=== PATIENT | female | born 1950 | race African-American/Black ===

== ENCOUNTER 2021-01-20 14:21 | Inpatient (IN) | payer OTHER ==
[~2021-01-20] VITALS: Ht 165.1 cm; Wt 87.9 kg
[2021-01-20] MEDS ORDERED: ALBU2.5V8 IH (14:55)
[2021-01-20] MEDS ORDERED: AMLO10TA4 PO (14:56)
[2021-01-20] MEDS ORDERED: ATOR40TA59 PO (14:57)
[2021-01-20] MEDS ORDERED: CLOP75TA PO (14:58)
[2021-01-20] MEDS ORDERED: CYCL-331 PO (15:00)
[2021-01-20] MEDS ORDERED: DICL20GE TP (15:01)
[2021-01-20] MEDS ORDERED: FLUT9.9S NS (15:04)
[2021-01-20] MEDS ORDERED: FERR325T14 PO (15:04)
[2021-01-20] MEDS ORDERED: APIX5TAB3 PO (15:04)
[2021-01-20] MEDS ORDERED: FLUT1DIS3 IH (15:06)
[2021-01-20] MEDS ORDERED: MELA5TAB20 PO (15:15)
[2021-01-20] MEDS ORDERED: LISI10TA16 PO (15:15)
[2021-01-20] MEDS ORDERED: MONT10TA80 PO (15:15)
[2021-01-20] MEDS ORDERED: [UNRECOGNIZED DRUG - CODE] PO (15:15)
[2021-01-20] MEDS ORDERED: HYDR30CR61 TP (15:15)
[2021-01-20] MEDS ORDERED: METO100T7 PO (15:15)
[2021-01-20] MEDS ORDERED: LORA10TA68 PO (15:15)
[2021-01-20] MEDS ORDERED: FURO40TA4 PO (15:15)
[2021-01-20] MEDS ORDERED: PANT40TA3 PO (15:17)
[2021-01-20] MEDS ORDERED: TIOT18CA IH (15:17)
[2021-01-20 15:26] VITALS: BP 119/79
[2021-01-20] MEDS ORDERED: MAGNESIUM HYDROXIDE 2,400 MG/30 ML ORAL.SUSP. PO PRN (15:45)
[2021-01-20] MEDS ORDERED: MAG HYDROX/AL HYDROX/SIMETH 30 ML ORAL.SUSP PO PRN (15:45)
[2021-01-20] MEDS ORDERED: METHYL SALICYLATE/MENTHOL TOPICAL OINTMENT 57GM TUBE. TP PRN (15:45)
[2021-01-20] MEDS ORDERED: ACETAMINOPHEN 325 MG TABLET PO PRN (15:45)
[2021-01-20] MEDS: NICOTINE 14MG PATCH. TD SCH (16:00)
[2021-01-20] MEDS ORDERED: ALBUTEROL SULFATE 2.5 MG/3 ML NEBU. IH PRN (16:30)
[2021-01-20] MEDS ORDERED: ACETAMINOPHEN PO PRN (16:30)
[2021-01-20] MEDS ORDERED: DIPHENHYDRAMINE PO PRN (16:30)
[2021-01-20] MEDS ORDERED: CILO100T PO (16:41)
[2021-01-20 16:54] LABS: BILIRUBIN,URINE NEG (NEG); CLARITY,URINE CLEAR; COLOR,URINE YELLOW; GLUCOSE,URINE NEG (NEG); NITRITE,URINE NEG (NEG); UROBILINOGEN,URINE 0.2 mg/dL (0.2 mg/dL)
[2021-01-20 16:56] LABS: BACTERIA,URINE 0 /HPF (0-FEW); RBC,URINE 0 /HPF (0-2); WBC,URINE 0 /HPF (0-4)
[2021-01-20 16:57] LABS: SQUAMOUS EPITHELIAL CELL,UR OCC /LPF
[2021-01-20] MEDS: DICLOFENAC SODIUM 1% TOPICAL GEL 100GM TUBE. TP SCH ×2 (17:00→21:09)
[2021-01-20] MEDS ORDERED: MELATONIN 3 MG TABLET PO PRN (17:00)
[2021-01-20] MEDS ORDERED: CILOSTAZOL 100 MG PO SCH (18:00)
[2021-01-20] MEDS ORDERED: IPRATRPIUM/ALBUTEROL 0.5/2.5MG 3 ML NEBU. NEB SCH (20:00)
[2021-01-20] MEDS ORDERED: BUDESONIDE 0.5 MG/2 ML NEBU NEB SCH (20:00)
[2021-01-20 20:44] LABS: BASO # 0.2 x10^3/uL (0.0-0.2); BASO % 3 % (0-3); EOS # 0.1 x10^3/uL (0.0-0.7); EOS % 2 % (0-3); HEMATOCRIT 28.6 % (36.0-47.0); HEMOGLOBIN 8.6 g/dL (12.0-15.5); LYMPH % 14 % (24-48); MEAN CORPUSCULAR HEMOGLOBIN 24 pg (25-35); MEAN CORPUSCULAR HGB CONC 30 g/dL (31-37); MEAN CORPUSCULAR VOLUME 79 fL (79-100); MONO # 0.9 x10^3/uL (0.0-1.1); MONO % 12 % (0-9); NEUT # 4.7 x10^3uL (1.8-7.7); NEUT % 69 % (31-73); PLATELET COUNT 109 x10^3/uL (140-400); RED BLOOD COUNT 3.64 x10^6/uL (3.50-5.40); RED CELL DISTRIBUTION WIDTH 26.7 % (11.5-14.5); WHITE BLOOD COUNT 6.9 x10^3/uL (4.0-11.0)
[2021-01-20] MEDS: HYDROCORTISONE 2.5% RECTAL CREAM 30GM TUBE. RC SCH (21:00)
[2021-01-20] MEDS ORDERED: NON FORMULARY ITEM (Fluticasone/Salmeterol (Advair 250-50 Diskus) 1 PUFF) IH SCH (21:00)
[2021-01-20 21:04] LABS: ALBUMIN 3.7 g/dL (3.4-5.0); CALCIUM 10.3 mg/dL (8.5-10.1); CREATININE 1.3 mg/dL (0.6-1.0); GFR 40.7; MAGNESIUM 2.2 mg/dL (1.8-2.4); POTASSIUM 3.7 mmol/L (3.5-5.1); TOTAL BILIRUBIN 0.4 mg/dL (0.2-1.0); TOTAL PROTEIN 7.5 g/dL (6.4-8.2)
[2021-01-20] MEDS: CYCLOBENZAPRINE 10 MG TABLET. PO SCH (21:06)
[2021-01-20] MEDS: MONTELUKAST 10 MG TABLET. PO SCH (21:06)
[2021-01-20] MEDS: METOPROLOL TART IMMED RELEASE 50 MG TABLET PO SCH (21:07)
[2021-01-20] MEDS: ATORVASTATIN CALCIUM 20 MG TABLET PO SCH (21:07)
[2021-01-20] MEDS: APIXABAN 5 MG TABLET. PO SCH (21:07)
[2021-01-20] MEDS ORDERED: DEXT30SU19 PO (21:13)
[2021-01-20] MEDS ORDERED: DEXTROMETHORPHAN POLISTIREX PO PRN (21:15)
--- NOTE | 2021-01-20 22:15 | PDOC ---
Exam Note: Blaise Note: Please also refer to the separate dictated note~for this date of service dictated separately.~Patient seen individually. Discussed the patient with Nursing staff reviewed the chart.~Reviewed interim history and current functioning. Reviewed vital signs,~Labs/ Radiology~and current medications noted below. Continue current treatment with the changes noted in the dictated addendum note Assessment: Vital Signs/I&O: Vital Signs Date Time Temp Pulse Resp B/P (MAP) Pulse Ox O2 Delivery O2 Flow Rate FiO2 01/20/21 21:07 60 119/79 01/20/21 15:26 97.4 18 97 Room Air Labs: Laboratory Tests Test 01/20/21 16:00 01/20/21 20:25 Urine Collection Type Clean catch Urine Color Yellow Urine Clarity Clear Urine pH 5.5 Urine Specific [place] 1.015 Urine Protein Neg (NEG-TRACE) Urine Glucose (UA) Neg mg/dL (NEG) Urine Ketones (Stick) Neg mg/dL (NEG) Urine Blood Neg (NEG) Urine Nitrite Neg (NEG) Urine Bilirubin Neg (NEG) Urine Urobilinogen Dipstick 0.2 mg/dL (0.2 mg/dL) Urine Leukocyte Esterase Neg (NEG) Urine RBC 0 /HPF (0-2) Urine WBC 0 /HPF (0-4) Urine Squamous Epithelial Cells Occ /LPF Urine Bacteria 0 /HPF (0-FEW) White Blood Count 6.9 x10^3/uL (4.0-11.0) Red Blood Count 3.64 x10^6/uL (3.50-5.40) Hemoglobin 8.6 g/dL (12.0-15.5) L Hematocrit 28.6 % (36.0-47.0) L Mean Corpuscular Volume 79 fL (79-100) Mean Corpuscular Hemoglobin 24 pg (25-35) L Mean Corpuscular Hemoglobin Concent 30 g/dL (31-37) L Red Cell Distribution Width 26.7 % (11.5-14.5) H Platelet Count 109 x10^3/uL (140-400) L Neutrophils (%) (Auto) 69 % (31-73) Lymphocytes (%) (Auto) 14 % (24-48) L Monocytes (%) (Auto) 12 % (0-9) H Eosinophils (%) (Auto) 2 % (0-3) Basophils (%) (Auto) 3 % (0-3) Neutrophils # (Auto) 4.7 x10^3uL (1.8-7.7) Lymphocytes # (Auto) 1.0 x10^3/uL (1.0-4.8) Monocytes # (Auto) 0.9 x10^3/uL (0.0-1.1) Eosinophils # (Auto) 0.1 x10^3/uL (0.0-0.7) Basophils # (Auto) 0.2 x10^3/uL (0.0-0.2) D-Dimer (Ingrid) 0.81 mg/L (0.00-0.50) H Sodium Level 144 mmol/L (136-145) Potassium Level 3.7 mmol/L (3.5-5.1) Chloride Level 104 mmol/L (98-107) Carbon Dioxide Level 29 mmol/L (21-32) Anion Gap 11 (6-14) Blood Urea Nitrogen 27 mg/dL (7-20) H Creatinine 1.3 mg/dL (0.6-1.0) H Estimated GFR (Cockcroft-Gault) 40.7 BUN/Creatinine Ratio 21 (6-20) H Glucose Level 107 mg/dL (70-99) H Calcium Level 10.3 mg/dL (8.5-10.1) H Magnesium Level 2.2 mg/dL (1.8-2.4) Total Bilirubin 0.4 mg/dL (0.2-1.0) Aspartate Amino Transferase (AST) 64 U/L (15-37) H Alanine Aminotransferase (ALT) 56 U/L (14-59) Alkaline Phosphatase 229 U/L (46-116) H Total Protein 7.5 g/dL (6.4-8.2) Albumin 3.7 g/dL (3.4-5.0) Albumin/Globulin Ratio 1.0 (1.0-1.7) Current Medications: Meds: Laboratory Tests Test 01/20/21 16:00 01/20/21 20:25 Urine Collection Type Clean catch Urine Color Yellow Urine Clarity Clear Urine pH 5.5 Urine Specific [place] 1.015 Urine Protein Neg Urine Glucose (UA) Neg mg/dL Urine Ketones (Stick) Neg mg/dL Urine Blood Neg Urine Nitrite Neg Urine Bilirubin Neg Urine Urobilinogen Dipstick 0.2 mg/dL Urine Leukocyte Esterase Neg Urine RBC 0 /HPF Urine WBC 0 /HPF Urine Squamous Epithelial Cells Occ /LPF Urine Bacteria 0 /HPF White Blood Count 6.9 x10^3/uL Red Blood Count 3.64 x10^6/uL Hemoglobin 8.6 g/dL Hematocrit 28.6 % Mean Corpuscular Volume 79 fL Mean Corpuscular Hemoglobin 24 pg Mean Corpuscular Hemoglobin Concent 30 g/dL Red Cell Distribution Width 26.7 % Platelet Count 109 x10^3/uL Neutrophils (%) (Auto) 69 % Lymphocytes (%) (Auto) 14 % Monocytes (%) (Auto) 12 % Eosinophils (%) (Auto) 2 % Basophils (%) (Auto) 3 % Neutrophils # (Auto) 4.7 x10^3uL Lymphocytes # (Auto) 1.0 x10^3/uL Monocytes # (Auto) 0.9 x10^3/uL Eosinophils # (Auto) 0.1 x10^3/uL Basophils # (Auto) 0.2 x10^3/uL D-Dimer (Ingrid) 0.81 mg/L Sodium Level 144 mmol/L Potassium Level 3.7 mmol/L Chloride Level 104 mmol/L Carbon Dioxide Level 29 mmol/L Anion Gap 11 Blood Urea Nitrogen 27 mg/dL Creatinine 1.3 mg/dL Estimated GFR (Cockcroft-Gault) 40.7 BUN/Creatinine Ratio 21 Glucose Level 107 mg/dL Calcium Level 10.3 mg/dL Magnesium Level 2.2 mg/dL Total Bilirubin 0.4 mg/dL Aspartate Amino Transf (AST/SGOT) 64 U/L Alanine Aminotransferase (ALT/SGPT) 56 U/L Alkaline Phosphatase 229 U/L Total Protein 7.5 g/dL Albumin 3.7 g/dL Albumin/Globulin Ratio 1.0 Current Medications Medications (Trade) Dose Ordered Sig/Nadeen Route PRN Reason Start Time Stop Time Status Last Admin Dose Admin Acetaminophen (Tylenol) 650 mg PRN Q6HRS PRN PO MILD PAIN / TEMP > 100.3'F 01/20/21 15:45 Multi-Ingredient Ointment (Analgesic [place]) 1 ortega PRN QID PRN TP MUSCLE PAIN 01/20/21 15:45 Al Hydroxide/Mg Hydroxide (Mylanta Plus Xs) 15 ml PRN AFTMEALHC PRN PO DYSPEPSIA 01/20/21 15:45 Magnesium Hydroxide (Milk Of Magnesia) 2,400 mg PRN QHS PRN PO CONSTIPATION 01/20/21 15:45 Nicotine (Nicoderm Cq 14mg Patch) 1 patch DAILY TD 01/20/21 16:00 Albuterol Sulfate (Ventolin) 0.108 mg PRN Q6HRS PRN IH wheezing 01/20/21 16:30 01/20/21 17:05 DC Amlodipine Besylate (Norvasc) 10 mg DAILY PO 01/21/21 09:00 Apixaban (Eliquis) 5 mg BID PO 01/20/21 21:00 01/20/21 21:07 Clopidogrel Bisulfate (Plavix) 75 mg DAILY PO 01/21/21 09:00 Cyclobenzaprine HCl (Flexeril) 10 mg BID PO 01/20/21 21:00 01/20/21 21:06 Diclofenac Sodium (Voltaren) 4 ortega QID TP 01/20/21 17:00 01/20/21 21:09 Ferrous Sulfate (Feosol) 325 mg DAILY PO 01/21/21 09:00 Furosemide (Lasix) 40 mg DAILY PO 01/21/21 09:00 Hydrocortisone (Proctosol-Hc) 1 ortega BID RC 01/20/21 21:00 01/20/21 21:00 Lisinopril (Prinivil) 10 mg DAILY PO 01/21/21 09:00 Montelukast Sodium (Singulair) 10 mg HS PO 01/20/21 21:00 01/20/21 21:06 Pantoprazole Sodium (Protonix) 40 mg DAILYAC PO 01/21/21 07:30 Non-Formulary Medication (Acetaminophen/ Diphenhydramine (Hm Pain Reliever Pm Caplet)) 650 mg PRN Q4HRS PRN PO PAIN 01/20/21 16:30 01/20/21 17:01 DC Atorvastatin Calcium (Lipitor) 40 mg QHS PO 01/20/21 21:00 01/20/21 21:07 Non-Formulary Medication (Cilostazol ) 100 mg BIDAFTMEAL PO 01/20/21 18:00 01/20/21 17:27 DC Fluticasone Propionate (Flonase) 1 spray DAILY NS 01/21/21 09:00 Non-Formulary Medication (Fluticasone/ Salmeterol (Advair 250-50 Diskus)) 1 puff Q12HR IH 01/20/21 21:00 01/20/21 17:16 DC Cetirizine HCl (ZyrTEC) 10 mg DAILY PO 01/21/21 09:00 Melatonin (Melatonin) 3 mg PRN QHS PRN PO INSOMNIA 01/20/21 17:00 Metoprolol Tartrate (Lopressor) 100 mg BID PO 01/20/21 21:00 01/20/21 21:07 Non-Formulary Medication (Tiotropium [place] (Spiriva)) 1 cap DAILY IH 01/21/21 09:00 01/20/21 17:17 DC Budesonide (Pulmicort) 0.5 mg RTBID NEB 01/20/21 20:00 01/20/21 19:43 DC Albuterol/ Ipratropium (Duoneb) 3 ml RTQID NEB 01/20/21 20:00 01/20/21 19:42 DC Albuterol/ Ipratropium (Combivent Respimat 20-100 Mcg) 1 puff RTQID INH 01/20/21 20:00 Fluticasone Furoate (ARNUITY 100mcg ELLIPTA) 1 puff BID INH 01/20/21 21:00 Non-Formulary Medication (Dextromethorphan Polistirex (Delsym)) 5 ml PRN BID PRN PO COUGH 01/20/21 21:15 UNV Current Medications Medications (Trade) Dose Ordered Sig/Nadeen Route PRN Reason Start Time Stop Time Status Last Admin Dose Admin Apixaban (Eliquis) 5 mg BID PO 01/20/21 21:00 01/20/21 21:07 Cyclobenzaprine HCl (Flexeril) 10 mg BID PO 01/20/21 21:00 01/20/21 21:06 Diclofenac Sodium (Voltaren) 4 ortega QID TP 01/20/21 17:00 01/20/21 21:09 Hydrocortisone (Proctosol-Hc) 1 ortega BID RC 01/20/21 21:00 01/20/21 21:00 Montelukast Sodium (Singulair) 10 mg HS PO 01/20/21 21:00 01/20/21 21:06 Atorvastatin Calcium (Lipitor) 40 mg QHS PO 01/20/21 21:00 01/20/21 21:07 Metoprolol Tartrate (Lopressor) 100 mg BID PO 01/20/21 21:00 01/20/21 21:07 I have reviewed the current psychotropics carefully including drug interactions. Risk benefit ratio favors no change other than as noted in my dictated progress note. JULIANN DORSEY MD Jan 20, 2021 22:15
[2021-01-20] MEDS: FLUTICASONE FUROATE 100mcg/INH ELLIPTA INHALER. INH SCH (22:16)
[2021-01-20] MEDS: IPRATROPIUM/ALBUTEROL 20/100mcg/INH INHALER. INH SCH (22:16)
--- NOTE | 2021-01-20 23:35 | HP ---
ADMIT DATE: 01/20/2021 PSYCHIATRIC ADMISSION HISTORY AND EVALUATION This note covers elements not covered in my initial note, 01/20. IDENTIFYING DATA: The patient is a 70-year-old Afro-Swedish female referred to us from [facility] where she was admitted from her home where she lives in an apartment. She has been increasingly delusional, psychotic, paranoid. She has been urinating in the cups, believed that someone was stalking her, perhaps her prior boyfriend. She had called the police about this and believed "Merrill was climbing up to the 9th or 10th floor and then coming in through her window". She stopped her medications and had been reportedly missing her outpatient doctor's appointments. She was not keeping any food in the apartment, appeared psychotic. She was sent to the ER, admitted for medical stabilization, remained paranoid. Behavior is deemed dangerous to return home by herself. Referred to us for inpatient psychiatric stabilization. She has been in outpatient treatment at [facility] in [place] and a prior inpatient hospitalization, psychiatric at [facility]. The patient seen individually, discussed with nursing staff, reviewed the chart. Previously, discussed with Sherlyn Urrutia, administrative assistant coordinator to review detailed background information. The patient is being admitted by her sister, who is her power of emergency dispatch operator in this document has been activated. CHIEF COMPLAINT:. "She does plunge through the window." HISTORY OF PRESENT ILLNESS: The patient has a history of delusional disorder and had been stable for some time, remains in outpatient psychiatric treatment. Recently, she has had an exacerbation of her psychosis, marked paranoia significantly interfering with her functioning. She normally takes a bus to go grocery shopping, does her own cooking and some of this has been impaired due to her psychosis as well. No active suicidal or homicidal ideation. No clear history of bipolar disorder. PAST PSYCHIATRIC HISTORY: As above and a past history of marijuana abuse and alcohol abuse, but no DUIs, DTs, shakes or blackouts. PAST MEDICAL HISTORY: Positive for COPD, pacemaker in place, asthma, hyperlipidemia, hypertension, cardiomyopathy, which is ischemic, peripheral arterial disease, hyperlipidemia, arthritis. ALLERGIES: ASPIRIN, SULFA. FAMILY HISTORY: Noncontributory. SOCIAL HISTORY: The patient lives in her apartment and takes a bus to go grocery shopping and to her outpatient appointments. No physical, sexual or elder abuse history is noted. She is not known to be a perpetrator. Reaction to hospitalization, the patient accepting of it. ASSETS: Supportive, living at the facility. REVIEW OF SYSTEMS: No CV, , pulmonary, eye system symptoms on review. MENTAL STATUS EXAMINATION: The patient is reasonably oriented to herself, situation. Speech is coherent, has some latency. Abstraction fair, computation impaired, language function intact. Attention span short. She remains quite paranoid, suspicious. No active suicidal or homicidal ideation. She is somewhat distractable. LABORATORY DATA: Reviewed. IMPRESSION: Delusional disorder versus psychotic disorder, unspecified versus schizoaffective disorder, bipolar, mixed with psychotic features; anxiety disorder, unspecified; impulse control disorder, unspecified. Rest as above. PLAN: Admit to Geropsychiatry Unit at [facility]. I will see the patient daily individually from a psychiatric standpoint. Medical followup with Dr. Reyes/Dr. Gamez. Continue the patient on her current psychotropics. Observe baseline. Get past psychiatric records from [facility] and psychiatrist at [facility]. Make further adjustments in psychotropics as clinically indicated. ESTIMATED LENGTH OF STAY: Ten-twelve days. DISPOSITION PLANS: Back to apartment when stable with outpatient treatment. ANGELY IZQUIERDO: Song TID: [id number]
--- NOTE | 2021-01-21 05:59 | CONS ---
DATE OF CONSULTATION: 01/20/2021 HISTORY OF PRESENT ILLNESS: The patient is a 70-year-old -[place] female patient who was admitted to [facility] as a transfer from [facility]. She apparently has been urinating in cups in her apartment, delusional, thinks Merrill is stalking her and entering her apartment, spitting in her food, stopped medicine, missing doctor's appointment, not keeping food in the apartment. She thinks Merrill is coming in her eighth floor window, thinks she has been rapped by Merrill, has called the police before who was admitted to [facility] for inpatient psychiatric stabilization. PAST MEDICAL HISTORY: Significant for chronic obstructive pulmonary disease, hypertension, hyperlipidemia, gastroesophageal reflux disease, anemia due to angiodysplasia of her duodenum, paroxysmal atrial fibrillation. She is also known to have bronchial asthma and ischemic cardiomyopathy, peripheral arterial disease. PAST SURGICAL HISTORY: Significant for permanent pacemaker placement and upper GI endoscopy. ALLERGIES: SHE IS ALLERGIC TO SULFA DRUGS AND ASPIRIN. MEDICATIONS: She is currently on the following medication: She is on loratadine 10 mg once a day, tiotropium bromide for Spiriva HandiHaler one inhalation once a day, albuterol sulfate for ProAir 2 puffs every 6 hours as needed, cyclobenzaprine 10 mg twice a day, ferrous sulfate 325 mg once a day, apixaban 5 mg twice a day, cilostazol 100 mg twice a day, clopidogrel for Plavix 75 mg once a day, atorvastatin calcium 40 mg at bedtime, metoprolol tartrate 100 mg twice a day, amlodipine besylate for Norvasc 10 mg daily, lisinopril 10 mg once a day and diclofenac sodium 4 grams 4 times a day, acetaminophen/diphenhydramine for pain relief every 4 hours as needed, furosemide 40 mg daily, Advair Diskus 250/50 1 puff twice a day, Singulair 10 mg at bedtime, Flonase 2 sprays to each nostril once a day, Protonix 40 mg once a day, hydrocortisone cream apply topically twice a day, melatonin 5 mg 1 tablet at bedtime as needed for insomnia. FAMILY HISTORY: Noncontributory. SOCIAL HISTORY: She lives alone. She has a daughter that lives in [place]. She continued to smoke. Drinks alcohol occasionally. Does not use any drugs. She is currently unemployed. REVIEW OF SYSTEMS: As per history of present illness. PHYSICAL EXAMINATION: GENERAL: When I examined her, she looked well and was clearly in no apparent respiratory distress. No pallor, jaundice, cyanosis, or thyromegaly. No jugular venous distention, no lower limb edema. VITAL SIGNS: Heart rate was 60, blood pressure is 119/79, temperature 97.4, respiratory rate was 18 and oxygen saturation was 97% on room air. HEAD, EYES, EARS, NOSE, AND THROAT: Normocephalic, atraumatic. NECK: Supple. HEART: Showed normal first and second heart sounds, no gallop, murmur. CHEST: Clear to auscultation. No crepitation or rhonchi. ABDOMEN: Distended, soft, nontender. NEUROLOGIC: She was grossly intact. LABORATORY DATA: Her labs works are still pending at the time of this dictation. Lab work done at [facility] showed her serum sodium 140, potassium 3.7, chloride 109, bicarbonate 26, anion gap of 5, her glucose was 65. Total protein 6.4, albumin 4.4, calcium was 9.2, BUN 21, creatinine 1.09. Estimated GFR was 59 mL per minute. AST, ALT normal. Alkaline phosphatase is elevated. Her APTT 42.4. Prothrombin time and INR normal. D-dimer was slightly elevated at 0.51. Her white cell count was 5000, hemoglobin was 5.5, hematocrit was 19.4, MCV 72 and a platelet count of 236,000. She did have a chest x-ray which showed cardiomegaly and pulmonary vascular congestion without overt pulmonary edema. CT scan of the head showed normal CT scan of the head without contrast. ASSESSMENT: In summary, this is a 70-year-old -[place] female patient who was admitted on account of being extremely paranoid, delusional, thinks Merrill is stalking her, entering her apartment, spitting in her food, stopped the medication, missing doctor's appointments, not keeping food in the apartment. Medically, she has severe microcytic hypochromic anemia. She has angiodysplasia of the duodenum with evidence of bleeding and iron deficiency anemia. She does have a prominent harsh ejection systolic murmur that radiates to both carotid arteries consistent probably with aortic stenosis. PLAN: My plan is to obviously repeat her lab work here and if she needs to be transfused, she probably needs to be transferred down to [address] [place] [address]. We should also arrange for her to have her serum iron, TIBC and serum ferritin as she clearly has severe microcytic hypochromic anemia. These labs done actually on 01/14/2021. I am not sure whether she had received any blood transfusion at [facility]. Thank you, Dr. Cadena for allowing me to participate in the care of this patient. RICHARD DR: [place] TID: [id number]
[2021-01-21 06:32] VITALS: BP 119/56
[2021-01-21] MEDS: DICLOFENAC SODIUM 1% TOPICAL GEL 100GM TUBE. TP SCH ×5 (06:35→20:05)
[2021-01-21] MEDS: APIXABAN 5 MG TABLET. PO SCH ×2 (08:31→20:06)
[2021-01-21] MEDS: MONTELUKAST 10 MG TABLET. PO SCH (08:31)
[2021-01-21] MEDS: FLUTICASONE 50MCG/NASAL SPRAY 16GM BOTTLE. NS SCH (08:31)
[2021-01-21] MEDS: NICOTINE 14MG PATCH. TD SCH (08:31)
[2021-01-21] MEDS: FUROSEMIDE 40 MG TABLET PO SCH (08:31)
[2021-01-21] MEDS: FERROUS SULFATE 325 MG TABLET. PO SCH (08:31)
[2021-01-21] MEDS: PANTOPRAZOLE 40 MG TABLET. PO SCH (08:31)
[2021-01-21] MEDS: CLOPIDOGREL BISULFATE 75 MG TABLET PO SCH (08:31)
[2021-01-21] MEDS: CYCLOBENZAPRINE 10 MG TABLET. PO SCH ×2 (08:31→20:06)
[2021-01-21] MEDS: CETIRIZINE HCL 10 MG TABLET PO SCH (08:32)
[2021-01-21] MEDS: METOPROLOL TART IMMED RELEASE 50 MG TABLET PO SCH ×2 (08:35→20:07)
[2021-01-21] MEDS: amLODIPine BESYLATE 10 MG TABLET PO SCH (08:35)
[2021-01-21] MEDS: FLUTICASONE FUROATE 100mcg/INH ELLIPTA INHALER. INH SCH ×2 (08:36→20:05)
[2021-01-21] MEDS: LISINOPRIL 10 MG TABLET PO SCH (08:36)
[2021-01-21] MEDS: HYDROCORTISONE 2.5% RECTAL CREAM 30GM TUBE. RC SCH ×2 (08:36→20:06)
[2021-01-21] MEDS: IPRATROPIUM/ALBUTEROL 20/100mcg/INH INHALER. INH SCH ×4 (08:36→20:05)
[2021-01-21] MEDS ORDERED: NON FORMULARY ITEM (Tiotropium Bromide (Spiriva) 1 CAP) IH SCH (09:00)
[2021-01-21 15:51] VITALS: BP 93/57
[2021-01-21 18:41] VITALS: BP 97/62
[2021-01-21 18:41] LABS: THYROID STIM HORMONE (TSH) 1.123 uIU/mL (0.358-3.740)
[2021-01-21] MEDS: ATORVASTATIN CALCIUM 20 MG TABLET PO SCH (20:06)
--- NOTE | 2021-01-21 22:03 | PDOC ---
Exam Note: Blaise Note: Please also refer to the separate dictated note~for this date of service dictated separately.~Patient seen individually. Discussed the patient with Nursing staff reviewed the chart.~Reviewed interim history and current functioning. Reviewed vital signs,~Labs/ Radiology~and current medications noted below. Continue current treatment with the changes noted in the dictated addendum note Assessment: Vital Signs/I&O: Vital Signs Date Time Temp Pulse Resp B/P (MAP) Pulse Ox O2 Delivery O2 Flow Rate FiO2 01/21/21 20:07 61 97/62 01/21/21 15:51 97.5 20 90 01/20/21 15:26 Room Air I & O 01/20/21 01/20/21 01/21/21 15:00 23:00 07:00 Intake Total 360 ml Balance 360 ml Labs: Laboratory Tests Test 01/21/21 06:30 Ferritin 29 ng/mL (8-252) Current Medications: Meds: Laboratory Tests Test 01/21/21 06:30 Ferritin 29 ng/mL Current Medications Medications (Trade) Dose Ordered Sig/Nadeen Route PRN Reason Start Time Stop Time Status Last Admin Dose Admin Acetaminophen (Tylenol) 650 mg PRN Q6HRS PRN PO MILD PAIN / TEMP > 100.3'F 01/20/21 15:45 Multi-Ingredient Ointment (Analgesic [place]) 1 ortega PRN QID PRN TP MUSCLE PAIN 01/20/21 15:45 Al Hydroxide/Mg Hydroxide (Mylanta Plus Xs) 15 ml PRN AFTMEALHC PRN PO DYSPEPSIA 01/20/21 15:45 Magnesium Hydroxide (Milk Of Magnesia) 2,400 mg PRN QHS PRN PO CONSTIPATION 01/20/21 15:45 Nicotine (Nicoderm Cq 14mg Patch) 1 patch DAILY TD 01/20/21 16:00 01/21/21 08:31 Albuterol Sulfate (Ventolin) 0.108 mg PRN Q6HRS PRN IH wheezing 01/20/21 16:30 01/20/21 17:05 DC Amlodipine Besylate (Norvasc) 10 mg DAILY PO 01/21/21 09:00 01/21/21 08:35 Apixaban (Eliquis) 5 mg BID PO 01/20/21 21:00 01/21/21 20:06 Clopidogrel Bisulfate (Plavix) 75 mg DAILY PO 01/21/21 09:00 01/21/21 08:31 Cyclobenzaprine HCl (Flexeril) 10 mg BID PO 01/20/21 21:00 01/21/21 20:06 Diclofenac Sodium (Voltaren) 4 ortega QID TP 01/20/21 17:00 01/21/21 20:05 Ferrous Sulfate (Feosol) 325 mg DAILY PO 01/21/21 09:00 01/21/21 08:31 Furosemide (Lasix) 40 mg DAILY PO 01/21/21 09:00 01/21/21 08:31 Hydrocortisone (Proctosol-Hc) 1 ortega BID RC 01/20/21 21:00 01/21/21 20:06 Lisinopril (Prinivil) 10 mg DAILY PO 01/21/21 09:00 01/21/21 08:36 Montelukast Sodium (Singulair) 10 mg HS PO 01/20/21 21:00 01/21/21 08:31 Pantoprazole Sodium (Protonix) 40 mg DAILYAC PO 01/21/21 07:30 01/21/21 08:31 Non-Formulary Medication (Acetaminophen/ Diphenhydramine (Hm Pain Reliever Pm Caplet)) 650 mg PRN Q4HRS PRN PO PAIN 01/20/21 16:30 01/20/21 17:01 DC Atorvastatin Calcium (Lipitor) 40 mg QHS PO 01/20/21 21:00 01/21/21 20:06 Non-Formulary Medication (Cilostazol ) 100 mg BIDAFTMEAL PO 01/20/21 18:00 01/20/21 17:27 DC Fluticasone Propionate (Flonase) 1 spray DAILY NS 01/21/21 09:00 01/21/21 08:31 Non-Formulary Medication (Fluticasone/ Salmeterol (Advair 250-50 Diskus)) 1 puff Q12HR IH 01/20/21 21:00 01/20/21 17:16 DC Cetirizine HCl (ZyrTEC) 10 mg DAILY PO 01/21/21 09:00 01/21/21 08:32 Melatonin (Melatonin) 3 mg PRN QHS PRN PO INSOMNIA 01/20/21 17:00 Metoprolol Tartrate (Lopressor) 100 mg BID PO 01/20/21 21:00 01/21/21 08:35 Non-Formulary Medication (Tiotropium [place] (Spiriva)) 1 cap DAILY IH 01/21/21 09:00 01/20/21 17:17 DC Budesonide (Pulmicort) 0.5 mg RTBID NEB 01/20/21 20:00 01/20/21 19:43 DC Albuterol/ Ipratropium (Duoneb) 3 ml RTQID NEB 01/20/21 20:00 01/20/21 19:42 DC Albuterol/ Ipratropium (Combivent Respimat 20-100 Mcg) 1 puff RTQID INH 01/20/21 20:00 01/21/21 20:05 Fluticasone Furoate (ARNUITY 100mcg ELLIPTA) 1 puff BID INH 01/20/21 21:00 01/21/21 20:05 Non-Formulary Medication (Dextromethorphan Polistirex (Delsym)) 5 ml PRN BID PRN PO COUGH 01/20/21 21:15 UNV Current Medications Medications (Trade) Dose Ordered Sig/Nadeen Route PRN Reason Start Time Stop Time Status Last Admin Dose Admin Amlodipine Besylate (Norvasc) 10 mg DAILY PO 01/21/21 09:00 01/21/21 08:35 Clopidogrel Bisulfate (Plavix) 75 mg DAILY PO 01/21/21 09:00 01/21/21 08:31 Ferrous Sulfate (Feosol) 325 mg DAILY PO 01/21/21 09:00 01/21/21 08:31 Furosemide (Lasix) 40 mg DAILY PO 01/21/21 09:00 01/21/21 08:31 Lisinopril (Prinivil) 10 mg DAILY PO 01/21/21 09:00 01/21/21 08:36 Pantoprazole Sodium (Protonix) 40 mg DAILYAC PO 01/21/21 07:30 01/21/21 08:31 Fluticasone Propionate (Flonase) 1 spray DAILY NS 01/21/21 09:00 01/21/21 08:31 Cetirizine HCl (ZyrTEC) 10 mg DAILY PO 01/21/21 09:00 01/21/21 08:32 I have reviewed the current psychotropics carefully including drug interactions. Risk benefit ratio favors no change other than as noted in my dictated progress note. Diagnosis: Problems: (1) Delusional disorder (2) Schizoaffective disorder, bipolar type (3) Bipolar disorder, current episode mixed, severe, with psychotic features (4) Psychotic disorder (5) Anxiety disorder, unspecified (6) Impulse control disorder, unspecified JULIANN DORSEY MD Jan 21, 2021 22:03
[2021-01-21 23:12] LABS: HEMOGLOBIN A1C 5.6 % (4.8-5.6)
[2021-01-22 05:47] VITALS: BP 138/75
--- NOTE | 2021-01-22 07:05 | PDOC ---
Exam Note: Blaise Note: This note is a late entry for 01/21/2021 covers elements not covered in my initial note. Subjective: The patient was seen individually in the evening of 01/21/2021 with Marlo HER, discussed and reviewed the chart. She slept 5-1/4 hours previous night. We have requested records from [facility] in [place] and past psychiatric inpatient records from [facility] in [place]. The patient talked at great length individually about how she is convinced when Srinivas, her ex-boyfriend comes up to the 10th floor and then swings down on ropes to her 8th floor. There was nothing I could do to talk her out of this today. Review of Systems: Ambulation impaired in wheelchair. No CV, , pulmonary, eye, ENT system symptoms on review. Mental Status Exam: The patient is oriented to herself and situation. Speech is coherent. Abstraction is fair. Computation impaired. Language function intact. Attention span short. She remains paranoid, delusional. No suicidal or homicidal ideation. Laboratory Data: Reviewed. Impression: Schizoaffective disorder, bipolar type mixed with psychotic features. Delusional disorder. Impulse control disorder unspecified. Anxiety disorder unspecified. Plan: Continue rest of the psychotropics unchanged. Continue melatonin 5 mg h.s. We may consider starting Risperdal tomorrow at 0.5 mg p.o. h.s. for her psychotic symptoms. We may also use SSRIs for her anti-obsessive effect but we will do one intervention at a time. Assessment: Vital Signs/I&O: Vital Signs Date Time Temp Pulse Resp B/P (MAP) Pulse Ox O2 Delivery O2 Flow Rate FiO2 01/22/21 05:47 97.6 68 18 138/75 (96) 96 Room Air I & O 01/21/21 01/21/21 01/22/21 15:00 23:00 07:00 Intake Total 560 ml 480 ml Balance 560 ml 480 ml Current Medications: Meds: Current Medications Medications (Trade) Dose Ordered Sig/Nadeen Route PRN Reason Start Time Stop Time Status Last Admin Dose Admin Acetaminophen (Tylenol) 650 mg PRN Q6HRS PRN PO MILD PAIN / TEMP > 100.3'F 01/20/21 15:45 Multi-Ingredient Ointment (Analgesic [place]) 1 ortega PRN QID PRN TP MUSCLE PAIN 01/20/21 15:45 Al Hydroxide/Mg Hydroxide (Mylanta Plus Xs) 15 ml PRN AFTMEALHC PRN PO DYSPEPSIA 01/20/21 15:45 Magnesium Hydroxide (Milk Of Magnesia) 2,400 mg PRN QHS PRN PO CONSTIPATION 01/20/21 15:45 Nicotine (Nicoderm Cq 14mg Patch) 1 patch DAILY TD 01/20/21 16:00 01/21/21 08:31 Albuterol Sulfate (Ventolin) 0.108 mg PRN Q6HRS PRN IH wheezing 01/20/21 16:30 01/20/21 17:05 DC Amlodipine Besylate (Norvasc) 10 mg DAILY PO 01/21/21 09:00 01/21/21 08:35 Apixaban (Eliquis) 5 mg BID PO 01/20/21 21:00 01/21/21 20:06 Clopidogrel Bisulfate (Plavix) 75 mg DAILY PO 01/21/21 09:00 01/21/21 08:31 Cyclobenzaprine HCl (Flexeril) 10 mg BID PO 01/20/21 21:00 01/21/21 20:06 Diclofenac Sodium (Voltaren) 4 ortega QID TP 01/20/21 17:00 01/21/21 20:05 Ferrous Sulfate (Feosol) 325 mg DAILY PO 01/21/21 09:00 01/21/21 08:31 Furosemide (Lasix) 40 mg DAILY PO 01/21/21 09:00 01/21/21 08:31 Hydrocortisone (Proctosol-Hc) 1 ortega BID RC 01/20/21 21:00 01/21/21 20:06 Lisinopril (Prinivil) 10 mg DAILY PO 01/21/21 09:00 01/21/21 08:36 Montelukast Sodium (Singulair) 10 mg HS PO 01/20/21 21:00 01/21/21 08:31 Pantoprazole Sodium (Protonix) 40 mg DAILYAC PO 01/21/21 07:30 01/21/21 08:31 Non-Formulary Medication (Acetaminophen/ Diphenhydramine (Hm Pain Reliever Pm Caplet)) 650 mg PRN Q4HRS PRN PO PAIN 01/20/21 16:30 6/8/21 17:01 DC Atorvastatin Calcium (Lipitor) 40 mg QHS PO 01/20/21 21:00 01/21/21 20:06 Non-Formulary Medication (Cilostazol ) 100 mg BIDAFTMEAL PO 01/20/21 18:00 01/20/21 17:27 DC Fluticasone Propionate (Flonase) 1 spray DAILY NS 01/21/21 09:00 01/21/21 08:31 Non-Formulary Medication (Fluticasone/ Salmeterol (Advair 250-50 Diskus)) 1 puff Q12HR IH 01/20/21 21:00 01/20/21 17:16 DC Cetirizine HCl (ZyrTEC) 10 mg DAILY PO 01/21/21 09:00 01/21/21 08:32 Melatonin (Melatonin) 3 mg PRN QHS PRN PO INSOMNIA 01/20/21 17:00 Metoprolol Tartrate (Lopressor) 100 mg BID PO 01/20/21 21:00 01/21/21 08:35 Non-Formulary Medication (Tiotropium [place] (Spiriva)) 1 cap DAILY IH 01/21/21 09:00 01/20/21 17:17 DC Budesonide (Pulmicort) 0.5 mg RTBID NEB 01/20/21 20:00 01/20/21 19:43 DC Albuterol/ Ipratropium (Duoneb) 3 ml RTQID NEB 01/20/21 20:00 01/20/21 19:42 DC Albuterol/ Ipratropium (Combivent Respimat 20-100 Mcg) 1 puff RTQID INH 01/20/21 20:00 01/21/21 20:05 Fluticasone Furoate (ARNUITY 100mcg ELLIPTA) 1 puff BID INH 01/20/21 21:00 01/21/21 20:05 Non-Formulary Medication (Dextromethorphan Polistirex (Delsym)) 5 ml PRN BID PRN PO COUGH 01/20/21 21:15 UNV Current Medications Medications (Trade) Dose Ordered Sig/Nadeen Route PRN Reason Start Time Stop Time Status Last Admin Dose Admin Amlodipine Besylate (Norvasc) 10 mg DAILY PO 01/21/21 09:00 6/9/21 08:35 Clopidogrel Bisulfate (Plavix) 75 mg DAILY PO 01/21/21 09:00 01/21/21 08:31 Ferrous Sulfate (Feosol) 325 mg DAILY PO 01/21/21 09:00 01/21/21 08:31 Furosemide (Lasix) 40 mg DAILY PO 01/21/21 09:00 01/21/21 08:31 Lisinopril (Prinivil) 10 mg DAILY PO 01/21/21 09:00 01/21/21 08:36 Pantoprazole Sodium (Protonix) 40 mg DAILYAC PO 01/21/21 07:30 01/21/21 08:31 Fluticasone Propionate (Flonase) 1 spray DAILY NS 01/21/21 09:00 01/21/21 08:31 Cetirizine HCl (ZyrTEC) 10 mg DAILY PO 01/21/21 09:00 01/21/21 08:32 I have reviewed the current psychotropics carefully including drug interactions. Risk benefit ratio favors no change other than as noted in my dictated progress note. Diagnosis: Problems: (1) Schizoaffective disorder, bipolar type (2) Delusional disorder (3) Psychotic disorder (4) Impulse control disorder, unspecified (5) Anxiety disorder, unspecified (6) Bipolar disorder, current episode mixed, severe, with psychotic features JULIANN DORSEY MD Jan 22, 2021 07:05
[2021-01-22] MEDS: CETIRIZINE HCL 10 MG TABLET PO SCH (08:51)
[2021-01-22] MEDS: APIXABAN 5 MG TABLET. PO SCH (08:51)
[2021-01-22] MEDS: CLOPIDOGREL BISULFATE 75 MG TABLET PO SCH (08:51)
[2021-01-22] MEDS: amLODIPine BESYLATE 10 MG TABLET PO SCH (08:51)
[2021-01-22] MEDS: CYCLOBENZAPRINE 10 MG TABLET. PO SCH ×2 (08:51→20:13)
[2021-01-22] MEDS: FERROUS SULFATE 325 MG TABLET. PO SCH (08:52)
[2021-01-22] MEDS: PANTOPRAZOLE 40 MG TABLET. PO SCH (08:52)
[2021-01-22] MEDS: LISINOPRIL 10 MG TABLET PO SCH (08:52)
[2021-01-22] MEDS: METOPROLOL TART IMMED RELEASE 50 MG TABLET PO SCH ×2 (08:52→20:13)
[2021-01-22] MEDS: IPRATROPIUM/ALBUTEROL 20/100mcg/INH INHALER. INH SCH ×4 (08:53→20:18)
[2021-01-22] MEDS: FLUTICASONE 50MCG/NASAL SPRAY 16GM BOTTLE. NS SCH (08:53)
[2021-01-22] MEDS: FLUTICASONE FUROATE 100mcg/INH ELLIPTA INHALER. INH SCH ×2 (08:53→20:18)
[2021-01-22] MEDS: FUROSEMIDE 40 MG TABLET PO SCH (08:54)
[2021-01-22] MEDS: NICOTINE 14MG PATCH. TD SCH (08:55)
[2021-01-22] MEDS: DICLOFENAC SODIUM 1% TOPICAL GEL 100GM TUBE. TP SCH ×4 (08:55→20:14)
[2021-01-22] MEDS: HYDROCORTISONE 2.5% RECTAL CREAM 30GM TUBE. RC SCH ×2 (08:55→20:20)
[2021-01-22 15:38] VITALS: BP 117/76
[2021-01-22] MEDS: ALBUTEROL SULFATE 8GM INHALER. INH PRN (20:12)
[2021-01-22] MEDS: ATORVASTATIN CALCIUM 20 MG TABLET PO SCH (20:13)
[2021-01-22] MEDS: MONTELUKAST 10 MG TABLET. PO SCH (20:13)
[2021-01-22] MEDS: ACETAMINOPHEN 325 MG TABLET PO SCH (20:20)
[2021-01-22] MEDS ORDERED: risperiDONE 0.25 MG TABLET. PO SCH (21:00)
--- NOTE | 2021-01-22 21:52 | PDOC ---
Exam Note: Blaise Note: Please also refer to the separate dictated note~for this date of service dictated separately.~Patient seen individually. Discussed the patient with Nursing staff reviewed the chart.~Reviewed interim history and current functioning. Reviewed vital signs,~Labs/ Radiology~and current medications noted below. Continue current treatment with the changes noted in the dictated addendum note Assessment: Vital Signs/I&O: Vital Signs Date Time Temp Pulse Resp B/P (MAP) Pulse Ox O2 Delivery O2 Flow Rate FiO2 01/22/21 20:13 65 117/76 01/22/21 15:38 96.1 18 93 01/22/21 05:47 Room Air I & O 01/21/21 01/21/21 01/22/21 15:00 23:00 07:00 Intake Total 560 ml 480 ml Balance 560 ml 480 ml Current Medications: Meds: Current Medications Medications (Trade) Dose Ordered Sig/Nadeen Route PRN Reason Start Time Stop Time Status Last Admin Dose Admin Acetaminophen (Tylenol) 650 mg PRN Q6HRS PRN PO MILD PAIN / TEMP > 100.3'F 01/20/21 15:45 01/22/21 15:32 DC 01/22/21 08:59 Multi-Ingredient Ointment (Analgesic [place]) 1 ortega PRN QID PRN TP MUSCLE PAIN 01/20/21 15:45 Al Hydroxide/Mg Hydroxide (Mylanta Plus Xs) 15 ml PRN AFTMEALHC PRN PO DYSPEPSIA 01/20/21 15:45 Magnesium Hydroxide (Milk Of Magnesia) 2,400 mg PRN QHS PRN PO CONSTIPATION 01/20/21 15:45 Nicotine (Nicoderm Cq 14mg Patch) 1 patch DAILY TD 01/20/21 16:00 01/22/21 08:55 Albuterol Sulfate (Ventolin) 0.108 mg PRN Q6HRS PRN IH wheezing 01/20/21 16:30 01/20/21 17:05 DC Amlodipine Besylate (Norvasc) 10 mg DAILY PO 01/21/21 09:00 01/22/21 08:51 Apixaban (Eliquis) 5 mg BID PO 01/20/21 21:00 01/22/21 11:48 DC 01/22/21 08:51 Clopidogrel Bisulfate (Plavix) 75 mg DAILY PO 01/21/21 09:00 01/22/21 13:19 DC 01/22/21 08:51 Cyclobenzaprine HCl (Flexeril) 10 mg BID PO 01/20/21 21:00 01/22/21 20:13 Diclofenac Sodium (Voltaren) 4 ortega QID TP 01/20/21 17:00 01/22/21 20:14 Ferrous Sulfate (Feosol) 325 mg DAILY PO 01/21/21 09:00 01/22/21 08:52 Furosemide (Lasix) 40 mg DAILY PO 01/21/21 09:00 01/22/21 08:54 Hydrocortisone (Proctosol-Hc) 1 ortega BID RC 01/20/21 21:00 01/22/21 20:20 Lisinopril (Prinivil) 10 mg DAILY PO 01/21/21 09:00 01/22/21 08:52 Montelukast Sodium (Singulair) 10 mg HS PO 01/20/21 21:00 01/22/21 20:13 Pantoprazole Sodium (Protonix) 40 mg DAILYAC PO 01/21/21 07:30 01/22/21 08:52 Non-Formulary Medication (Acetaminophen/ Diphenhydramine (Hm Pain Reliever Pm Caplet)) 650 mg PRN Q4HRS PRN PO PAIN 01/20/21 16:30 01/20/21 17:01 DC Atorvastatin Calcium (Lipitor) 40 mg QHS PO 01/20/21 21:00 01/22/21 20:13 Non-Formulary Medication (Cilostazol ) 100 mg BIDAFTMEAL PO 01/20/21 18:00 01/20/21 17:27 DC Fluticasone Propionate (Flonase) 1 spray DAILY NS 01/21/21 09:00 01/22/21 08:53 Non-Formulary Medication (Fluticasone/ Salmeterol (Advair 250-50 Diskus)) 1 puff Q12HR IH 01/20/21 21:00 01/20/21 17:16 DC Cetirizine HCl (ZyrTEC) 10 mg DAILY PO 01/21/21 09:00 01/22/21 08:51 Melatonin (Melatonin) 3 mg PRN QHS PRN PO INSOMNIA 01/20/21 17:00 01/22/21 20:13 Metoprolol Tartrate (Lopressor) 100 mg BID PO 01/20/21 21:00 01/22/21 20:13 Non-Formulary Medication (Tiotropium [place] (Spiriva)) 1 cap DAILY IH 01/21/21 09:00 01/20/21 17:17 DC Budesonide (Pulmicort) 0.5 mg RTBID NEB 01/20/21 20:00 01/20/21 19:43 DC Albuterol/ Ipratropium (Duoneb) 3 ml RTQID NEB 01/20/21 20:00 01/20/21 19:42 DC Albuterol/ Ipratropium (Combivent Respimat 20-100 Mcg) 1 puff RTQID INH 01/20/21 20:00 01/22/21 20:18 Fluticasone Furoate (ARNUITY 100mcg ELLIPTA) 1 puff BID INH 01/20/21 21:00 01/22/21 20:18 Non-Formulary Medication (Dextromethorphan Polistirex (Delsym)) 5 ml PRN BID PRN PO COUGH 01/20/21 21:15 UNV Risperidone (RisperDAL) 0.25 mg HS PO 01/22/21 21:00 01/22/21 20:20 Fluvoxamine Maleate (Luvox) 25 mg DAILY PO 01/23/21 09:00 Apixaban (Eliquis) 2.5 mg BID PO 01/29/21 09:00 Acetaminophen (Tylenol) 650 mg BID PO 01/22/21 21:00 01/22/21 20:20 Albuterol Sulfate (Ventolin Hfa Inhaler) 1 puff PRN Q4HRS PRN INH SHORTNESS OF BREATH 01/22/21 19:45 01/22/21 20:12 Current Medications Medications (Trade) Dose Ordered Sig/Nadeen Route PRN Reason Start Time Stop Time Status Last Admin Dose Admin Risperidone (RisperDAL) 0.25 mg HS PO 01/22/21 21:00 01/22/21 20:20 Acetaminophen (Tylenol) 650 mg BID PO 01/22/21 21:00 01/22/21 20:20 Albuterol Sulfate (Ventolin Hfa Inhaler) 1 puff PRN Q4HRS PRN INH SHORTNESS OF BREATH 01/22/21 19:45 01/22/21 20:12 I have reviewed the current psychotropics carefully including drug interactions. Risk benefit ratio favors no change other than as noted in my dictated progress note. Diagnosis: Problems: (1) Schizoaffective disorder, bipolar type (2) Delusional disorder (3) Psychotic disorder (4) Impulse control disorder, unspecified (5) Anxiety disorder, unspecified (6) Bipolar disorder, current episode mixed, severe, with psychotic features JULIANN DORSEY MD Jan 22, 2021 21:52
[2021-01-23 05:47] VITALS: BP 104/59
[2021-01-23] MEDS: ACETAMINOPHEN 325 MG TABLET PO SCH ×2 (06:01→20:24)
[2021-01-23] MEDS: CYCLOBENZAPRINE 10 MG TABLET. PO SCH ×2 (06:01→20:23)
[2021-01-23 06:16] LABS: BASO # 0.1 x10^3/uL (0.0-0.2); BASO % 2 % (0-3); EOS # 0.2 x10^3/uL (0.0-0.7); EOS % 3 % (0-3); HEMOGLOBIN 7.6 g/dL (12.0-15.5); LYMPH % 32 % (24-48); MEAN CORPUSCULAR HEMOGLOBIN 24 pg (25-35); MEAN CORPUSCULAR HGB CONC 31 g/dL (31-37); MEAN CORPUSCULAR VOLUME 78 fL (79-100); MONO # 0.9 x10^3/uL (0.0-1.1); MONO % 14 % (0-9); NEUT # 3.1 x10^3uL (1.8-7.7); NEUT % 50 % (31-73); PLATELET COUNT 122 x10^3/uL (140-400); RED BLOOD COUNT 3.21 x10^6/uL (3.50-5.40); RED CELL DISTRIBUTION WIDTH 27.8 % (11.5-14.5); WHITE BLOOD COUNT 6.2 x10^3/uL (4.0-11.0)
--- NOTE | 2021-01-23 07:01 | PDOC ---
Exam Note: Blaise Note: This note is a late entry for 01/22/2021 covers elements not covered in my initial note. Subjective: The patient was reviewed in the morning of 01/22/2021 for a treatment team meeting with Sherlyn Brunson, Carla Rangel and [place] (administrator social welfare), Radha, activity therapy and Deborah HER, discussed and reviewed the chart. She slept 5-3/4 hours previous night. Appetite is 100%. Review of Systems: Ambulation impaired in wheelchair. No CV, , pulmonary, eye, ENT system symptoms on review. Mental Status Exam: The patient is oriented to herself and situation. Speech is coherent, can be pressured but she started talking about Srinivas, roping into her 8th floor apartment from the 10th floor and she is quite convinced of this still. Language function intact. Attention span short. No suicidal or homicidal ideation. Laboratory Data: Reviewed. Impression: Schizoaffective disorder, bipolar type mixed with psychotic features. Delusional disorder. Impulse control disorder unspecified. Anxiety disorder unspecified. Plan: Continue rest of the psychotropics unchanged. Start Risperdal 0.25 mg h.s., Luvox 25 mg a day. Get prior psychiatric records. Assessment: Vital Signs/I&O: Vital Signs Date Time Temp Pulse Resp B/P (MAP) Pulse Ox O2 Delivery O2 Flow Rate FiO2 01/23/21 05:47 97.7 61 16 104/59 (74) 95 Room Air I & O 01/22/21 01/22/21 01/23/21 15:00 23:00 07:00 Intake Total 720 ml 480 ml Balance 720 ml 480 ml Labs: Laboratory Tests Test 01/23/21 06:03 White Blood Count 6.2 x10^3/uL (4.0-11.0) Red Blood Count 3.21 x10^6/uL (3.50-5.40) L Hemoglobin 7.6 g/dL (12.0-15.5) L Hematocrit 25.0 % (36.0-47.0) L Mean Corpuscular Volume 78 fL (79-100) L Mean Corpuscular Hemoglobin 24 pg (25-35) L Mean Corpuscular Hemoglobin Concent 31 g/dL (31-37) Red Cell Distribution Width 27.8 % (11.5-14.5) H Platelet Count 122 x10^3/uL (140-400) L Neutrophils (%) (Auto) 50 % (31-73) Lymphocytes (%) (Auto) 32 % (24-48) Monocytes (%) (Auto) 14 % (0-9) H Eosinophils (%) (Auto) 3 % (0-3) Basophils (%) (Auto) 2 % (0-3) Neutrophils # (Auto) 3.1 x10^3uL (1.8-7.7) Lymphocytes # (Auto) 2.0 x10^3/uL (1.0-4.8) Monocytes # (Auto) 0.9 x10^3/uL (0.0-1.1) Eosinophils # (Auto) 0.2 x10^3/uL (0.0-0.7) Basophils # (Auto) 0.1 x10^3/uL (0.0-0.2) Platelet Estimate Pending Current Medications: Meds: Laboratory Tests Test 01/23/21 06:03 White Blood Count 6.2 x10^3/uL Red Blood Count 3.21 x10^6/uL Hemoglobin 7.6 g/dL Hematocrit 25.0 % Mean Corpuscular Volume 78 fL Mean Corpuscular Hemoglobin 24 pg Mean Corpuscular Hemoglobin Concent 31 g/dL Red Cell Distribution Width 27.8 % Platelet Count 122 x10^3/uL Neutrophils (%) (Auto) 50 % Lymphocytes (%) (Auto) 32 % Monocytes (%) (Auto) 14 % Eosinophils (%) (Auto) 3 % Basophils (%) (Auto) 2 % Neutrophils # (Auto) 3.1 x10^3uL Lymphocytes # (Auto) 2.0 x10^3/uL Monocytes # (Auto) 0.9 x10^3/uL Eosinophils # (Auto) 0.2 x10^3/uL Basophils # (Auto) 0.1 x10^3/uL Platelet Estimate Pending Current Medications Medications (Trade) Dose Ordered Sig/Nadeen Route PRN Reason Start Time Stop Time Status Last Admin Dose Admin Acetaminophen (Tylenol) 650 mg PRN Q6HRS PRN PO MILD PAIN / TEMP > 100.3'F 01/20/21 15:45 01/22/21 15:32 DC 01/22/21 08:59 Multi-Ingredient Ointment (Analgesic [place]) 1 ortega PRN QID PRN TP MUSCLE PAIN 01/20/21 15:45 Al Hydroxide/Mg Hydroxide (Mylanta Plus Xs) 15 ml PRN AFTMEALHC PRN PO DYSPEPSIA 01/20/21 15:45 Magnesium Hydroxide (Milk Of Magnesia) 2,400 mg PRN QHS PRN PO CONSTIPATION 01/20/21 15:45 Nicotine (Nicoderm Cq 14mg Patch) 1 patch DAILY TD 01/20/21 16:00 01/22/21 08:55 Albuterol Sulfate (Ventolin) 0.108 mg PRN Q6HRS PRN IH wheezing 01/20/21 16:30 01/20/21 17:05 DC Amlodipine Besylate (Norvasc) 10 mg DAILY PO 01/21/21 09:00 01/22/21 08:51 Apixaban (Eliquis) 5 mg BID PO 01/20/21 21:00 01/22/21 11:48 DC 01/22/21 08:51 Clopidogrel Bisulfate (Plavix) 75 mg DAILY PO 01/21/21 09:00 01/22/21 13:19 DC 01/22/21 08:51 Cyclobenzaprine HCl (Flexeril) 10 mg BID PO 01/20/21 21:00 01/23/21 06:01 Diclofenac Sodium (Voltaren) 4 orte[place] QID TP 01/20/21 17:00 01/22/21 20:14 Ferrous Sulfate (Feosol) 325 mg DAILY PO 01/21/21 09:00 01/22/21 08:52 Furosemide (Lasix) 40 mg DAILY PO 01/21/21 09:00 01/22/21 08:54 Hydrocortisone (Proctosol-Hc) 1 ortega BID RC 01/20/21 21:00 01/22/21 20:20 Lisinopril (Prinivil) 10 mg DAILY PO 01/21/21 09:00 01/22/21 08:52 Montelukast Sodium (Singulair) 10 mg HS PO 01/20/21 21:00 01/22/21 20:13 Pantoprazole Sodium (Protonix) 40 mg DAILYAC PO 01/21/21 07:30 01/22/21 08:52 Non-Formulary Medication (Acetaminophen/ Diphenhydramine (Hm Pain Reliever Pm Caplet)) 650 mg PRN Q4HRS PRN PO PAIN 01/20/21 16:30 01/20/21 17:01 DC Atorvastatin Calcium (Lipitor) 40 mg QHS PO 01/20/21 21:00 01/22/21 20:13 Non-Formulary Medication (Cilostazol ) 100 mg BIDAFTMEAL PO 01/20/21 18:00 01/20/21 17:27 DC Fluticasone Propionate (Flonase) 1 spray DAILY NS 01/21/21 09:00 01/22/21 08:53 Non-Formulary Medication (Fluticasone/ Salmeterol (Advair 250-50 Diskus)) 1 puff Q12HR IH 01/20/21 21:00 01/20/21 17:16 DC Cetirizine HCl (ZyrTEC) 10 mg DAILY PO 01/21/21 09:00 01/22/21 08:51 Melatonin (Melatonin) 3 mg PRN QHS PRN PO INSOMNIA 01/20/21 17:00 01/22/21 20:13 Metoprolol Tartrate (Lopressor) 100 mg BID PO 01/20/21 21:00 01/22/21 20:13 Non-Formulary Medication (Tiotropium [place] (Spiriva)) 1 cap DAILY IH 01/21/21 09:00 01/20/21 17:17 DC Budesonide (Pulmicort) 0.5 mg RTBID NEB 01/20/21 20:00 01/20/21 19:43 DC Albuterol/ Ipratropium (Duoneb) 3 ml RTQID NEB 01/20/21 20:00 01/20/21 19:42 DC Albuterol/ Ipratropium (Combivent Respimat 20-100 Mcg) 1 puff RTQID INH 01/20/21 20:00 01/22/21 20:18 Fluticasone Furoate (ARNUITY 100mcg ELLIPTA) 1 puff BID INH 01/20/21 21:00 01/22/21 20:18 Non-Formulary Medication (Dextromethorphan Polistirex (Delsym)) 5 ml PRN BID PRN PO COUGH 01/20/21 21:15 UNV Risperidone (RisperDAL) 0.25 mg HS PO 01/22/21 21:00 01/22/21 20:20 Fluvoxamine Maleate (Luvox) 25 mg DAILY PO 01/23/21 09:00 Apixaban (Eliquis) 2.5 mg BID PO 01/29/21 09:00 Acetaminophen (Tylenol) 650 mg BID PO 01/22/21 21:00 01/23/21 06:01 Albuterol Sulfate (Ventolin Hfa Inhaler) 1 puff PRN Q4HRS PRN INH SHORTNESS OF BREATH 01/22/21 19:45 01/22/21 20:12 Current Medications Medications (Trade) Dose Ordered Sig/Nadeen Route PRN Reason Start Time Stop Time Status Last Admin Dose Admin Risperidone (RisperDAL) 0.25 mg HS PO 01/22/21 21:00 01/22/21 20:20 Acetaminophen (Tylenol) 650 mg BID PO 01/22/21 21:00 01/23/21 06:01 Albuterol Sulfate (Ventolin Hfa Inhaler) 1 puff PRN Q4HRS PRN INH SHORTNESS OF BREATH 01/22/21 19:45 01/22/21 20:12 I have reviewed the current psychotropics carefully including drug interactions. Risk benefit ratio favors no change other than as noted in my dictated progress note. Diagnosis: Problems: (1) Schizoaffective disorder, bipolar type (2) Delusional disorder (3) Psychotic disorder (4) Impulse control disorder, unspecified (5) Anxiety disorder, unspecified (6) Bipolar disorder, current episode mixed, severe, with psychotic features JULIANN DORSEY MD Jan 23, 2021 07:01
[2021-01-23] MEDS: FLUTICASONE FUROATE 100mcg/INH ELLIPTA INHALER. INH SCH ×2 (08:29→20:22)
[2021-01-23] MEDS: ALBUTEROL SULFATE 8GM INHALER. INH PRN (08:29)
[2021-01-23] MEDS: IPRATROPIUM/ALBUTEROL 20/100mcg/INH INHALER. INH SCH ×4 (08:29→20:22)
[2021-01-23] MEDS: DICLOFENAC SODIUM 1% TOPICAL GEL 100GM TUBE. TP SCH ×4 (08:30→20:23)
[2021-01-23] MEDS: NICOTINE 14MG PATCH. TD SCH (08:30)
[2021-01-23] MEDS: FERROUS SULFATE 325 MG TABLET. PO SCH ×2 (08:30→16:48)
[2021-01-23] MEDS: PANTOPRAZOLE 40 MG TABLET. PO SCH (08:30)
[2021-01-23] MEDS: CETIRIZINE HCL 10 MG TABLET PO SCH (08:30)
[2021-01-23] MEDS: FUROSEMIDE 40 MG TABLET PO SCH (08:34)
[2021-01-23] MEDS: LISINOPRIL 10 MG TABLET PO SCH (08:34)
[2021-01-23] MEDS: METOPROLOL TART IMMED RELEASE 50 MG TABLET PO SCH ×2 (08:35→20:25)
[2021-01-23] MEDS: amLODIPine BESYLATE 10 MG TABLET PO SCH (08:35)
[2021-01-23] MEDS: FLUTICASONE 50MCG/NASAL SPRAY 16GM BOTTLE. NS SCH (08:39)
[2021-01-23] MEDS: HYDROCORTISONE 2.5% RECTAL CREAM 30GM TUBE. RC SCH ×2 (08:40→20:25)
[2021-01-23 09:55] LABS: % BANDS 3 % (0-9); % EOS 3 % (0-5); % LYMPHS 25 % (24-48); % MONOS 3 % (0-10); % SEGS 60 % (35-66); NUCLEATED RBC 2
[2021-01-23 10:02] LABS: TARGET CELLS PRESENT
[2021-01-23 10:05] LABS: SCHISTOCYTES FEW
[2021-01-23 10:08] LABS: TEAR DROP CELLS PRESENT
[2021-01-23 10:10] LABS: HYPOCHROMIA PRESENT
[2021-01-23 10:11] LABS: MICROCYTOSIS PRESENT
[2021-01-23 10:15] LABS: ANISOCYTOSIS PRESENT
[2021-01-23 10:18] LABS: PLT ESTIMATE DECREASED (ADEQUATE)
[2021-01-23 10:33] VITALS: BP 136/66
[2021-01-23 15:25] VITALS: BP 124/79
[2021-01-23] MEDS: ASCORBIC ACID 500 MG TABLET PO SCH (16:48)
[2021-01-23] MEDS: ATORVASTATIN CALCIUM 20 MG TABLET PO SCH (20:24)
[2021-01-23] MEDS: risperiDONE 0.25 MG TABLET. PO SCH (20:24)
[2021-01-23] MEDS: MONTELUKAST 10 MG TABLET. PO SCH (20:24)
--- NOTE | 2021-01-23 21:59 | PDOC ---
Exam Note: Blaise Note: Please also refer to the separate dictated note~for this date of service dictated separately.~Patient seen individually. Discussed the patient with Nursing staff reviewed the chart.~Reviewed interim history and current functioning. Reviewed vital signs,~Labs/ Radiology~and current medications noted below. Continue current treatment with the changes noted in the dictated addendum note Assessment: Vital Signs/I&O: Vital Signs Date Time Temp Pulse Resp B/P (MAP) Pulse Ox O2 Delivery O2 Flow Rate FiO2 01/23/21 20:25 76 124/79 01/23/21 15:25 97.9 20 96 Room Air I & O 01/22/21 01/22/21 01/23/21 15:00 23:00 07:00 Intake Total 720 ml 480 ml Balance 720 ml 480 ml Labs: Laboratory Tests Test 01/23/21 06:03 White Blood Count 6.2 x10^3/uL (4.0-11.0) Red Blood Count 3.21 x10^6/uL (3.50-5.40) L Hemoglobin 7.6 g/dL (12.0-15.5) L Hematocrit 25.0 % (36.0-47.0) L Mean Corpuscular Volume 78 fL (79-100) L Mean Corpuscular Hemoglobin 24 pg (25-35) L Mean Corpuscular Hemoglobin Concent 31 g/dL (31-37) Red Cell Distribution Width 27.8 % (11.5-14.5) H Platelet Count 122 x10^3/uL (140-400) L Neutrophils (%) (Auto) 50 % (31-73) Lymphocytes (%) (Auto) 32 % (24-48) Monocytes (%) (Auto) 14 % (0-9) H Eosinophils (%) (Auto) 3 % (0-3) Basophils (%) (Auto) 2 % (0-3) Neutrophils # (Auto) 3.1 x10^3uL (1.8-7.7) Lymphocytes # (Auto) 2.0 x10^3/uL (1.0-4.8) Monocytes # (Auto) 0.9 x10^3/uL (0.0-1.1) Eosinophils # (Auto) 0.2 x10^3/uL (0.0-0.7) Basophils # (Auto) 0.1 x10^3/uL (0.0-0.2) Segmented Neutrophils % 60 % (35-66) Band Neutrophils % 3 % (0-9) Lymphocytes % 25 % (24-48) Monocytes % 3 % (0-10) Eosinophils % 3 % (0-5) Basophils % 6 % (0-3) H Nucleated Red Blood Cells 2 Platelet Estimate Decreased (ADEQUATE) Large Platelets Present Hypochromasia Present Anisocytosis Present Microcytosis Present Target Cells Present Tear Drop Cells Present Schistocytes Few Current Medications: Meds: Laboratory Tests Test 01/23/21 06:03 White Blood Count 6.2 x10^3/uL Red Blood Count 3.21 x10^6/uL Hemoglobin 7.6 g/dL Hematocrit 25.0 % Mean Corpuscular Volume 78 fL Mean Corpuscular Hemoglobin 24 pg Mean Corpuscular Hemoglobin Concent 31 g/dL Red Cell Distribution Width 27.8 % Platelet Count 122 x10^3/uL Neutrophils (%) (Auto) 50 % Lymphocytes (%) (Auto) 32 % Monocytes (%) (Auto) 14 % Eosinophils (%) (Auto) 3 % Basophils (%) (Auto) 2 % Neutrophils # (Auto) 3.1 x10^3uL Lymphocytes # (Auto) 2.0 x10^3/uL Monocytes # (Auto) 0.9 x10^3/uL Eosinophils # (Auto) 0.2 x10^3/uL Basophils # (Auto) 0.1 x10^3/uL Segmented Neutrophils % 60 % Band Neutrophils % 3 % Lymphocytes % 25 % Monocytes % 3 % Eosinophils % 3 % Basophils % 6 % Nucleated Red Blood Cells 2 Platelet Estimate Decreased Large Platelets Present Hypochromasia Present Anisocytosis Present Microcytosis Present Target Cells Present Tear Drop Cells Present Schistocytes Few Current Medications Medications (Trade) Dose Ordered Sig/Nadeen Route PRN Reason Start Time Stop Time Status Last Admin Dose Admin Acetaminophen (Tylenol) 650 mg PRN Q6HRS PRN PO MILD PAIN / TEMP > 100.3'F 01/20/21 15:45 01/22/21 15:32 DC 01/22/21 08:59 Multi-Ingredient Ointment (Analgesic [place]) 1 ortega PRN QID PRN TP MUSCLE PAIN 01/20/21 15:45 Al Hydroxide/Mg Hydroxide (Mylanta Plus Xs) 15 ml PRN AFTMEALHC PRN PO DYSPEPSIA 01/20/21 15:45 Magnesium Hydroxide (Milk Of Magnesia) 2,400 mg PRN QHS PRN PO CONSTIPATION 01/20/21 15:45 Nicotine (Nicoderm Cq 14mg Patch) 1 patch DAILY TD 01/20/21 16:00 01/23/21 08:30 Albuterol Sulfate (Ventolin) 0.108 mg PRN Q6HRS PRN IH wheezing 01/20/21 16:30 01/20/21 17:05 DC Amlodipine Besylate (Norvasc) 10 mg DAILY PO 01/21/21 09:00 01/23/21 08:35 Apixaban (Eliquis) 5 mg BID PO 01/20/21 21:00 01/22/21 11:48 DC 01/22/21 08:51 Clopidogrel Bisulfate (Plavix) 75 mg DAILY PO 01/21/21 09:00 01/22/21 13:19 DC 01/22/21 08:51 Cyclobenzaprine HCl (Flexeril) 10 mg BID PO 01/20/21 21:00 01/23/21 20:23 Diclofenac Sodium (Voltaren) 4 ortega QID TP 01/20/21 17:00 01/23/21 20:23 Ferrous Sulfate (Feosol) 325 mg DAILY PO 01/21/21 09:00 01/23/21 11:28 DC 01/23/21 08:30 Furosemide (Lasix) 40 mg DAILY PO 01/21/21 09:00 01/23/21 08:34 Hydrocortisone (Proctosol-Hc) 1 ortega BID RC 01/20/21 21:00 01/23/21 20:25 Lisinopril (Prinivil) 10 mg DAILY PO 01/21/21 09:00 01/23/21 08:34 Montelukast Sodium (Singulair) 10 mg HS PO 01/20/21 21:00 01/23/21 20:24 Pantoprazole Sodium (Protonix) 40 mg DAILYAC PO 01/21/21 07:30 01/23/21 08:30 Non-Formulary Medication (Acetaminophen/ Diphenhydramine (Hm Pain Reliever Pm Caplet)) 650 mg PRN Q4HRS PRN PO PAIN 01/20/21 16:30 01/20/21 17:01 DC Atorvastatin Calcium (Lipitor) 40 mg QHS PO 01/20/21 21:00 01/23/21 20:24 Non-Formulary Medication (Cilostazol ) 100 mg BIDAFTMEAL PO 01/20/21 18:00 01/20/21 17:27 DC Fluticasone Propionate (Flonase) 1 spray DAILY NS 01/21/21 09:00 01/23/21 08:39 Non-Formulary Medication (Fluticasone/ Salmeterol (Advair 250-50 Diskus)) 1 puff Q12HR IH 01/20/21 21:00 01/20/21 17:16 DC Cetirizine HCl (ZyrTEC) 10 mg DAILY PO 01/21/21 09:00 01/23/21 08:30 Melatonin (Melatonin) 3 mg PRN QHS PRN PO INSOMNIA 01/20/21 17:00 01/22/21 20:13 Metoprolol Tartrate (Lopressor) 100 mg BID PO 01/20/21 21:00 01/23/21 20:25 Non-Formulary Medication (Tiotropium [place] (Spiriva)) 1 cap DAILY IH 01/21/21 09:00 01/20/21 17:17 DC Budesonide (Pulmicort) 0.5 mg RTBID NEB 01/20/21 20:00 01/20/21 19:43 DC Albuterol/ Ipratropium (Duoneb) 3 ml RTQID NEB 01/20/21 20:00 01/20/21 19:42 DC Albuterol/ Ipratropium (Combivent Respimat 20-100 Mcg) 1 puff RTQID INH 01/20/21 20:00 01/23/21 20:22 Fluticasone Furoate (ARNUITY 100mcg ELLIPTA) 1 puff BID INH 01/20/21 21:00 01/23/21 20:22 Non-Formulary Medication (Dextromethorphan Polistirex (Delsym)) 5 ml PRN BID PRN PO COUGH 01/20/21 21:15 UNV Risperidone (RisperDAL) 0.25 mg HS PO 01/22/21 21:00 01/23/21 17:36 DC 01/22/21 20:20 Fluvoxamine Maleate (Luvox) 25 mg DAILY PO 01/23/21 09:00 01/23/21 08:30 Apixaban (Eliquis) 2.5 mg BID PO 01/29/21 09:00 Acetaminophen (Tylenol) 650 mg BID PO 01/22/21 21:00 01/23/21 20:24 Albuterol Sulfate (Ventolin Hfa Inhaler) 1 puff PRN Q4HRS PRN INH SHORTNESS OF BREATH 01/22/21 19:45 01/23/21 08:29 Ferrous Sulfate (Feosol) 325 mg BID94 PO 01/23/21 16:00 01/23/21 16:48 Ascorbic Acid (Vitamin C) 500 mg BID94 PO 01/23/21 16:00 01/23/21 16:48 Risperidone (RisperDAL) 0.5 mg HS PO 01/23/21 21:00 01/23/21 20:24 Current Medications Medications (Trade) Dose Ordered Sig/Nadeen Route PRN Reason Start Time Stop Time Status Last Admin Dose Admin Fluvoxamine Maleate (Luvox) 25 mg DAILY PO 01/23/21 09:00 01/23/21 08:30 Ferrous Sulfate (Feosol) 325 mg BID94 PO 01/23/21 16:00 01/23/21 16:48 Ascorbic Acid (Vitamin C) 500 mg BID94 PO 01/23/21 16:00 01/23/21 16:48 Risperidone (RisperDAL) 0.5 mg HS PO 01/23/21 21:00 01/23/21 20:24 I have reviewed the current psychotropics carefully including drug interactions. Risk benefit ratio favors no change other than as noted in my dictated progress note. Diagnosis: Problems: (1) Schizoaffective disorder, bipolar type (2) Delusional disorder (3) Psychotic disorder (4) Impulse control disorder, unspecified (5) Anxiety disorder, unspecified (6) Bipolar disorder, current episode mixed, severe, with psychotic features JULIANN DORSEY MD Jan 23, 2021 21:59
--- NOTE | 2021-01-24 01:48 | PN ---
DATE: 01/23/2021 SUBJECTIVE: The patient's meds were reviewed. She had a history of duodenal ulcers and GI bleed treated at [facility] prior to admission. Her hemoglobin on admission was 8.6 grams, today it is down to 7.6 grams per deciliter with a small indices. Earlier in the week, we had held her Plavix and Eliquis for the next week to be restarted when her blood counts are stable. I believe she is equilibrating, she has iron deficiency from the blood loss and her bone marrow is not making up new erythrocytes to keep up, therefore I suggested that we increase her iron, ferrous sulfate to 325 p.o. b.i.d. along with a weak reducing agent, ascorbic acid 500 mg p.o. b.i.d., the week after keep the iron reduced in the +2 state to allow maximal absorption in the proximal jejunum. At this time, we will reassess her hemoglobin next week and decide at that time whether it is safe to restart her anticoagulation. ARMANDO DR: Cristóbal TID: [id number]
[2021-01-24 06:03] VITALS: BP 131/69
--- NOTE | 2021-01-24 06:34 | EKG ---
[address] [address] Test Date: 2021-01-20 Test Time: 07:04:43 Pat Name: ALMAZ IGNACIO Department: Room: [address] [place] [address] Gender: F Material Checker: : [id number] Requested By: JULIANN DORSEY Order Number: [id number] Reading MD: Measurements Intervals Yoder Rate: P: MT: QRS: QRSD: T: QT: QTc: Interpretive Statements
--- NOTE | 2021-01-24 06:56 | PDOC ---
Exam Note: Blaise Note: This note is a late entry for 01/23/2021 covers elements not covered in my initial note. Subjective: The patient was seen individually in the evening of 01/23/2021 with Marlo HER, discussed and reviewed the chart. She slept 6 hours previous night. The patient does not come out and voice her delusions to nursing staff but as I again questioned her it was evident she still remains delusional about her ex-boyfriend Srinivas making his way from the 10th floor from outside the smart rappelling down to the 8th floor window of her apartment and then making his entry through there. She is quite detailed about this when questioned empathetically. She is compliant with her medications. I met with her in her room. Review of Systems: Ambulation impaired in wheelchair. No CV, , pulmonary, eye, ENT system symptoms on review. She has had some coughing. Mental Status Exam: The patient is reasonably oriented to herself. Speech is coherent. Abstraction is fair. Computation impaired. Language function intact. Attention span short. Mood and affect remains somewhat withdrawn. No suicidal or homicidal ideation. Laboratory Data: Reviewed. Impression: Schizoaffective disorder, bipolar type mixed with psychotic features. Delusional disorder. Impulse control disorder unspecified. Anxiety disorder unspecified. Plan: Continue rest of the psychotropics unchanged. Increase Risperdal from 0.25 mg h.s. to 0.5 mg h.s. Maintain Luvox 25 mg a day. Rest unchanged for now. Assessment: Vital Signs/I&O: Vital Signs Date Time Temp Pulse Resp B/P (MAP) Pulse Ox O2 Delivery O2 Flow Rate FiO2 01/24/21 06:03 97.2 58 16 131/69 (89) 93 Room Air I & O 01/23/21 01/23/21 01/24/21 15:00 23:00 07:00 Intake Total 840 ml 720 ml Balance 840 ml 720 ml Current Medications: Meds: Current Medications Medications (Trade) Dose Ordered Sig/Nadeen Route PRN Reason Start Time Stop Time Status Last Admin Dose Admin Acetaminophen (Tylenol) 650 mg PRN Q6HRS PRN PO MILD PAIN / TEMP > 100.3'F 01/20/21 15:45 01/22/21 15:32 DC 01/22/21 08:59 Multi-Ingredient Ointment (Analgesic [place]) 1 ortega PRN QID PRN TP MUSCLE PAIN 01/20/21 15:45 Al Hydroxide/Mg Hydroxide (Mylanta Plus Xs) 15 ml PRN AFTMEALHC PRN PO DYSPEPSIA 01/20/21 15:45 Magnesium Hydroxide (Milk Of Magnesia) 2,400 mg PRN QHS PRN PO CONSTIPATION 01/20/21 15:45 Nicotine (Nicoderm Cq 14mg Patch) 1 patch DAILY TD 01/20/21 16:00 01/23/21 08:30 Albuterol Sulfate (Ventolin) 0.108 mg PRN Q6HRS PRN IH wheezing 01/20/21 16:30 01/20/21 17:05 DC Amlodipine Besylate (Norvasc) 10 mg DAILY PO 01/21/21 09:00 01/23/21 08:35 Apixaban (Eliquis) 5 mg BID PO 01/20/21 21:00 01/22/21 11:48 DC 01/22/21 08:51 Clopidogrel Bisulfate (Plavix) 75 mg DAILY PO 01/21/21 09:00 01/22/21 13:19 DC 01/22/21 08:51 Cyclobenzaprine HCl (Flexeril) 10 mg BID PO 01/20/21 21:00 01/23/21 20:23 Diclofenac Sodium (Voltaren) 4 ortega QID TP 01/20/21 17:00 01/23/21 20:23 Ferrous Sulfate (Feosol) 325 mg DAILY PO 01/21/21 09:00 01/23/21 11:28 DC 01/23/21 08:30 Furosemide (Lasix) 40 mg DAILY PO 01/21/21 09:00 01/23/21 08:34 Hydrocortisone (Proctosol-Hc) 1 ortega BID RC 01/20/21 21:00 01/23/21 20:25 Lisinopril (Prinivil) 10 mg DAILY PO 01/21/21 09:00 01/23/21 08:34 Montelukast Sodium (Singulair) 10 mg HS PO 01/20/21 21:00 01/23/21 20:24 Pantoprazole Sodium (Protonix) 40 mg DAILYAC PO 01/21/21 07:30 01/23/21 08:30 Non-Formulary Medication (Acetaminophen/ Diphenhydramine (Hm Pain Reliever Pm Caplet)) 650 mg PRN Q4HRS PRN PO PAIN 01/20/21 16:30 01/20/21 17:01 DC Atorvastatin Calcium (Lipitor) 40 mg QHS PO 01/20/21 21:00 01/23/21 20:24 Non-Formulary Medication (Cilostazol ) 100 mg BIDAFTMEAL PO 01/20/21 18:00 01/20/21 17:27 DC Fluticasone Propionate (Flonase) 1 spray DAILY NS 01/21/21 09:00 01/23/21 08:39 Non-Formulary Medication (Fluticasone/ Salmeterol (Advair 250-50 Diskus)) 1 puff Q12HR IH 01/20/21 21:00 01/20/21 17:16 DC Cetirizine HCl (ZyrTEC) 10 mg DAILY PO 01/21/21 09:00 01/23/21 08:30 Melatonin (Melatonin) 3 mg PRN QHS PRN PO INSOMNIA 01/20/21 17:00 01/22/21 20:13 Metoprolol Tartrate (Lopressor) 100 mg BID PO 01/20/21 21:00 01/23/21 20:25 Non-Formulary Medication (Tiotropium [place] (Spiriva)) 1 cap DAILY IH 01/21/21 09:00 01/20/21 17:17 DC Budesonide (Pulmicort) 0.5 mg RTBID NEB 01/20/21 20:00 01/20/21 19:43 DC Albuterol/ Ipratropium (Duoneb) 3 ml RTQID NEB 01/20/21 20:00 01/20/21 19:42 DC Albuterol/ Ipratropium (Combivent Respimat 20-100 Mcg) 1 puff RTQID INH 01/20/21 20:00 01/23/21 20:22 Fluticasone Furoate (ARNUITY 100mcg ELLIPTA) 1 puff BID INH 01/20/21 21:00 01/23/21 20:22 Non-Formulary Medication (Dextromethorphan Polistirex (Delsym)) 5 ml PRN BID PRN PO COUGH 01/20/21 21:15 UNV Risperidone (RisperDAL) 0.25 mg HS PO 01/22/21 21:00 01/23/21 17:36 DC 01/22/21 20:20 Fluvoxamine Maleate (Luvox) 25 mg DAILY PO 01/23/21 09:00 01/23/21 08:30 Apixaban (Eliquis) 2.5 mg BID PO 01/29/21 09:00 Acetaminophen (Tylenol) 650 mg BID PO 01/22/21 21:00 01/23/21 20:24 Albuterol Sulfate (Ventolin Hfa Inhaler) 1 puff PRN Q4HRS PRN INH SHORTNESS OF BREATH 01/22/21 19:45 01/23/21 08:29 Ferrous Sulfate (Feosol) 325 mg BID94 PO 01/23/21 16:00 01/23/21 16:48 Ascorbic Acid (Vitamin C) 500 mg BID94 PO 01/23/21 16:00 01/23/21 16:48 Risperidone (RisperDAL) 0.5 mg HS PO 01/23/21 21:00 01/23/21 20:24 Current Medications Medications (Trade) Dose Ordered Sig/Nadeen Route PRN Reason Start Time Stop Time Status Last Admin Dose Admin Fluvoxamine Maleate (Luvox) 25 mg DAILY PO 01/23/21 09:00 01/23/21 08:30 Ferrous Sulfate (Feosol) 325 mg BID94 PO 01/23/21 16:00 01/23/21 16:48 Ascorbic Acid (Vitamin C) 500 mg BID94 PO 01/23/21 16:00 01/23/21 16:48 Risperidone (RisperDAL) 0.5 mg HS PO 01/23/21 21:00 01/23/21 20:24 I have reviewed the current psychotropics carefully including drug interactions. Risk benefit ratio favors no change other than as noted in my dictated progress note. Diagnosis: Problems: (1) Schizoaffective disorder, bipolar type (2) Delusional disorder (3) Psychotic disorder (4) Impulse control disorder, unspecified (5) Anxiety disorder, unspecified (6) Bipolar disorder, current episode mixed, severe, with psychotic features JULIANN DORSEY MD Jan 24, 2021 06:56
[2021-01-24] MEDS: ALBUTEROL SULFATE 8GM INHALER. INH PRN (08:18)
[2021-01-24] MEDS: IPRATROPIUM/ALBUTEROL 20/100mcg/INH INHALER. INH SCH ×4 (08:18→20:39)
[2021-01-24] MEDS: FLUTICASONE 50MCG/NASAL SPRAY 16GM BOTTLE. NS SCH (08:18)
[2021-01-24] MEDS: DICLOFENAC SODIUM 1% TOPICAL GEL 100GM TUBE. TP SCH ×4 (08:19→20:39)
[2021-01-24] MEDS: FLUTICASONE FUROATE 100mcg/INH ELLIPTA INHALER. INH SCH ×2 (08:19→20:39)
[2021-01-24] MEDS: NICOTINE 14MG PATCH. TD SCH (08:19)
[2021-01-24] MEDS: CETIRIZINE HCL 10 MG TABLET PO SCH (08:20)
[2021-01-24] MEDS: CYCLOBENZAPRINE 10 MG TABLET. PO SCH ×2 (08:20→20:39)
[2021-01-24] MEDS: ACETAMINOPHEN 325 MG TABLET PO SCH ×2 (08:20→20:41)
[2021-01-24] MEDS: PANTOPRAZOLE 40 MG TABLET. PO SCH (08:20)
[2021-01-24] MEDS: ASCORBIC ACID 500 MG TABLET PO SCH ×2 (08:20→16:41)
[2021-01-24] MEDS: FERROUS SULFATE 325 MG TABLET. PO SCH ×2 (08:20→16:44)
[2021-01-24] MEDS: FUROSEMIDE 40 MG TABLET PO SCH (08:23)
[2021-01-24] MEDS: HYDROCORTISONE 2.5% RECTAL CREAM 30GM TUBE. RC SCH ×2 (09:00→20:41)
[2021-01-24] MEDS: LISINOPRIL 10 MG TABLET PO SCH (09:00)
[2021-01-24] MEDS: METOPROLOL TART IMMED RELEASE 50 MG TABLET PO SCH ×2 (09:00→20:40)
[2021-01-24] MEDS: amLODIPine BESYLATE 10 MG TABLET PO SCH (09:00)
[2021-01-24 09:19] VITALS: BP 108/58
[2021-01-24 15:31] VITALS: BP 124/70
[2021-01-24] MEDS: risperiDONE 0.25 MG TABLET. PO SCH (20:39)
[2021-01-24] MEDS: MONTELUKAST 10 MG TABLET. PO SCH (20:39)
[2021-01-24] MEDS: ATORVASTATIN CALCIUM 20 MG TABLET PO SCH (20:40)
--- NOTE | 2021-01-24 21:59 | PDOC ---
Exam Note: Blaise Note: Please also refer to the separate dictated note~for this date of service dictated separately.~Patient seen individually. Discussed the patient with Nursing staff reviewed the chart.~Reviewed interim history and current functioning. Reviewed vital signs,~Labs/ Radiology~and current medications noted below. Continue current treatment with the changes noted in the dictated addendum note Assessment: Vital Signs/I&O: Vital Signs Date Time Temp Pulse Resp B/P (MAP) Pulse Ox O2 Delivery O2 Flow Rate FiO2 01/24/21 20:40 61 124/70 01/24/21 15:31 98.9 22 94 Room Air I & O 01/23/21 01/23/21 01/24/21 15:00 23:00 07:00 Intake Total 840 ml 720 ml Balance 840 ml 720 ml Current Medications: Meds: Current Medications Medications (Trade) Dose Ordered Sig/Nadeen Route PRN Reason Start Time Stop Time Status Last Admin Dose Admin Acetaminophen (Tylenol) 650 mg PRN Q6HRS PRN PO MILD PAIN / TEMP > 100.3'F 01/20/21 15:45 01/22/21 15:32 DC 01/22/21 08:59 Multi-Ingredient Ointment (Analgesic [place]) 1 ortega PRN QID PRN TP MUSCLE PAIN 01/20/21 15:45 Al Hydroxide/Mg Hydroxide (Mylanta Plus Xs) 15 ml PRN AFTMEALHC PRN PO DYSPEPSIA 01/20/21 15:45 Magnesium Hydroxide (Milk Of Magnesia) 2,400 mg PRN QHS PRN PO CONSTIPATION 01/20/21 15:45 Nicotine (Nicoderm Cq 14mg Patch) 1 patch DAILY TD 01/20/21 16:00 01/24/21 08:19 Albuterol Sulfate (Ventolin) 0.108 mg PRN Q6HRS PRN IH wheezing 01/20/21 16:30 01/20/21 17:05 DC Amlodipine Besylate (Norvasc) 10 mg DAILY PO 01/21/21 09:00 01/23/21 08:35 Apixaban (Eliquis) 5 mg BID PO 01/20/21 21:00 01/22/21 11:48 DC 01/22/21 08:51 Clopidogrel Bisulfate (Plavix) 75 mg DAILY PO 01/21/21 09:00 01/22/21 13:19 DC 01/22/21 08:51 Cyclobenzaprine HCl (Flexeril) 10 mg BID PO 01/20/21 21:00 01/24/21 20:39 Diclofenac Sodium (Voltaren) 4 ortega QID TP 01/20/21 17:00 01/24/21 20:39 Ferrous Sulfate (Feosol) 325 mg DAILY PO 01/21/21 09:00 01/23/21 11:28 DC 01/23/21 08:30 Furosemide (Lasix) 40 mg DAILY PO 01/21/21 09:00 01/24/21 08:23 Hydrocortisone (Proctosol-Hc) 1 ortega BID RC 01/20/21 21:00 01/24/21 20:41 Lisinopril (Prinivil) 10 mg DAILY PO 01/21/21 09:00 01/23/21 08:34 Montelukast Sodium (Singulair) 10 mg HS PO 01/20/21 21:00 01/24/21 20:39 Pantoprazole Sodium (Protonix) 40 mg DAILYAC PO 01/21/21 07:30 01/24/21 08:20 Non-Formulary Medication (Acetaminophen/ Diphenhydramine (Hm Pain Reliever Pm Caplet)) 650 mg PRN Q4HRS PRN PO PAIN 01/20/21 16:30 01/20/21 17:01 DC Atorvastatin Calcium (Lipitor) 40 mg QHS PO 01/20/21 21:00 01/24/21 20:40 Non-Formulary Medication (Cilostazol ) 100 mg BIDAFTMEAL PO 01/20/21 18:00 01/20/21 17:27 DC Fluticasone Propionate (Flonase) 1 spray DAILY NS 01/21/21 09:00 01/24/21 08:18 Non-Formulary Medication (Fluticasone/ Salmeterol (Advair 250-50 Diskus)) 1 puff Q12HR IH 01/20/21 21:00 01/20/21 17:16 DC Cetirizine HCl (ZyrTEC) 10 mg DAILY PO 01/21/21 09:00 01/24/21 08:20 Melatonin (Melatonin) 3 mg PRN QHS PRN PO INSOMNIA 01/20/21 17:00 01/22/21 20:13 Metoprolol Tartrate (Lopressor) 100 mg BID PO 01/20/21 21:00 01/24/21 20:40 Non-Formulary Medication (Tiotropium [place] (Spiriva)) 1 cap DAILY IH 01/21/21 09:00 01/20/21 17:17 DC Budesonide (Pulmicort) 0.5 mg RTBID NEB 01/20/21 20:00 01/20/21 19:43 DC Albuterol/ Ipratropium (Duoneb) 3 ml RTQID NEB 01/20/21 20:00 01/20/21 19:42 DC Albuterol/ Ipratropium (Combivent Respimat 20-100 Mcg) 1 puff RTQID INH 01/20/21 20:00 01/24/21 20:39 Fluticasone Furoate (ARNUITY 100mcg ELLIPTA) 1 puff BID INH 01/20/21 21:00 01/24/21 20:39 Non-Formulary Medication (Dextromethorphan Polistirex (Delsym)) 5 ml PRN BID PRN PO COUGH 01/20/21 21:15 UNV Risperidone (RisperDAL) 0.25 mg HS PO 01/22/21 21:00 01/23/21 17:36 DC 01/22/21 20:20 Fluvoxamine Maleate (Luvox) 25 mg DAILY PO 01/23/21 09:00 01/24/21 08:20 Apixaban (Eliquis) 2.5 mg BID PO 01/29/21 09:00 Acetaminophen (Tylenol) 650 mg BID PO 01/22/21 21:00 01/24/21 20:41 Albuterol Sulfate (Ventolin Hfa Inhaler) 1 puff PRN Q4HRS PRN INH SHORTNESS OF BREATH 01/22/21 19:45 01/24/21 08:18 Ferrous Sulfate (Feosol) 325 mg BID94 PO 01/23/21 16:00 01/24/21 16:44 Ascorbic Acid (Vitamin C) 500 mg BID94 PO 01/23/21 16:00 01/24/21 16:41 Risperidone (RisperDAL) 0.5 mg HS PO 01/23/21 21:00 01/24/21 20:39 I have reviewed the current psychotropics carefully including drug interactions. Risk benefit ratio favors no change other than as noted in my dictated progress note. Diagnosis: Problems: (1) Schizoaffective disorder, bipolar type (2) Delusional disorder (3) Psychotic disorder (4) Impulse control disorder, unspecified (5) Anxiety disorder, unspecified (6) Bipolar disorder, current episode mixed, severe, with psychotic features JULIANN DORSEY MD Jan 24, 2021 21:58
[2021-01-25 06:02] VITALS: BP 151/61
[2021-01-25] MEDS: IPRATROPIUM/ALBUTEROL 20/100mcg/INH INHALER. INH SCH ×4 (08:00→20:48)
[2021-01-25] MEDS: CYCLOBENZAPRINE 10 MG TABLET. PO SCH ×2 (08:23→20:47)
[2021-01-25] MEDS: PANTOPRAZOLE 40 MG TABLET. PO SCH (08:23)
[2021-01-25] MEDS: FUROSEMIDE 40 MG TABLET PO SCH (08:23)
[2021-01-25] MEDS: CETIRIZINE HCL 10 MG TABLET PO SCH (08:23)
[2021-01-25] MEDS: LISINOPRIL 10 MG TABLET PO SCH (08:24)
[2021-01-25] MEDS: amLODIPine BESYLATE 10 MG TABLET PO SCH (08:24)
[2021-01-25] MEDS: FERROUS SULFATE 325 MG TABLET. PO SCH ×2 (08:24→16:43)
[2021-01-25] MEDS: METOPROLOL TART IMMED RELEASE 50 MG TABLET PO SCH ×2 (08:24→20:48)
[2021-01-25] MEDS: ASCORBIC ACID 500 MG TABLET PO SCH ×2 (08:25→16:44)
[2021-01-25] MEDS: ACETAMINOPHEN 325 MG TABLET PO SCH ×2 (08:25→20:48)
[2021-01-25] MEDS: FLUTICASONE FUROATE 100mcg/INH ELLIPTA INHALER. INH SCH ×2 (08:27→20:48)
[2021-01-25] MEDS: NICOTINE 14MG PATCH. TD SCH (08:48)
[2021-01-25] MEDS: DICLOFENAC SODIUM 1% TOPICAL GEL 100GM TUBE. TP SCH ×4 (09:00→20:48)
[2021-01-25] MEDS: HYDROCORTISONE 2.5% RECTAL CREAM 30GM TUBE. RC SCH ×2 (09:00→20:49)
[2021-01-25] MEDS: FLUTICASONE 50MCG/NASAL SPRAY 16GM BOTTLE. NS SCH (09:00)
[2021-01-25] MEDS ORDERED: HYDROcodone/CHLORPHEN POLIS 5 ML SUS.ER.12H PO PRN (09:30)
--- NOTE | 2021-01-25 11:13 | RAD ---
XR CHEST 1V Clinical Indication: Reason: Cough, SOB / Spl. Instructions: / History: Comparison: None. Findings: There is left chest dual-chamber pacer. There is cardiac enlargement. There is no pulmonary vascular congestion. Lungs are clear. There is no pneumothorax. No pleural effusion is appreciated. No acute b one abnormality. IMPRESSION: 1. Lungs are clear. 2. Cardiomegaly. Electronically signed by: Chevy Grant MD (01/25/2021 11:11 AM) [facility]AMTulio
[2021-01-25 15:41] VITALS: BP 111/65
[2021-01-25] MEDS: risperiDONE 0.25 MG TABLET. PO SCH (20:47)
[2021-01-25] MEDS: MONTELUKAST 10 MG TABLET. PO SCH (20:48)
[2021-01-25] MEDS: ATORVASTATIN CALCIUM 20 MG TABLET PO SCH (20:48)
--- NOTE | 2021-01-25 21:58 | PDOC ---
Exam Note: Blaise Note: Please also refer to the separate dictated note~for this date of service dictated separately.~Patient seen individually. Discussed the patient with Nursing staff reviewed the chart.~Reviewed interim history and current functioning. Reviewed vital signs,~Labs/ Radiology~and current medications noted below. Continue current treatment with the changes noted in the dictated addendum note Assessment: Vital Signs/I&O: Vital Signs Date Time Temp Pulse Resp B/P (MAP) Pulse Ox O2 Delivery O2 Flow Rate FiO2 01/25/21 20:48 69 111/65 01/25/21 15:41 97.6 18 91 01/25/21 06:02 Room Air I & O 01/24/21 01/24/21 01/25/21 15:00 23:00 07:00 Intake Total 840 ml 360 ml Balance 840 ml 360 ml Current Medications: Meds: Current Medications Medications (Trade) Dose Ordered Sig/Nadeen Route PRN Reason Start Time Stop Time Status Last Admin Dose Admin Acetaminophen (Tylenol) 650 mg PRN Q6HRS PRN PO MILD PAIN / TEMP > 100.3'F 01/20/21 15:45 01/22/21 15:32 DC 01/22/21 08:59 Multi-Ingredient Ointment (Analgesic [place]) 1 ortega PRN QID PRN TP MUSCLE PAIN 01/20/21 15:45 Al Hydroxide/Mg Hydroxide (Mylanta Plus Xs) 15 ml PRN AFTMEALHC PRN PO DYSPEPSIA 01/20/21 15:45 Magnesium Hydroxide (Milk Of Magnesia) 2,400 mg PRN QHS PRN PO CONSTIPATION 01/20/21 15:45 Nicotine (Nicoderm Cq 14mg Patch) 1 patch DAILY TD 01/20/21 16:00 01/25/21 08:48 Albuterol Sulfate (Ventolin) 0.108 mg PRN Q6HRS PRN IH wheezing 01/20/21 16:30 01/20/21 17:05 DC Amlodipine Besylate (Norvasc) 10 mg DAILY PO 01/21/21 09:00 01/25/21 08:24 Apixaban (Eliquis) 5 mg BID PO 01/20/21 21:00 01/22/21 11:48 DC 01/22/21 08:51 Clopidogrel Bisulfate (Plavix) 75 mg DAILY PO 01/21/21 09:00 01/22/21 13:19 DC 01/22/21 08:51 Cyclobenzaprine HCl (Flexeril) 10 mg BID PO 01/20/21 21:00 01/25/21 20:47 Diclofenac Sodium (Voltaren) 4 ortega QID TP 01/20/21 17:00 01/25/21 20:48 Ferrous Sulfate (Feosol) 325 mg DAILY PO 01/21/21 09:00 01/23/21 11:28 DC 01/23/21 08:30 Furosemide (Lasix) 40 mg DAILY PO 01/21/21 09:00 01/25/21 08:23 Hydrocortisone (Proctosol-Hc) 1 ortega BID RC 01/20/21 21:00 01/24/21 20:41 Lisinopril (Prinivil) 10 mg DAILY PO 01/21/21 09:00 01/25/21 08:24 Montelukast Sodium (Singulair) 10 mg HS PO 01/20/21 21:00 01/25/21 20:48 Pantoprazole Sodium (Protonix) 40 mg DAILYAC PO 01/21/21 07:30 01/25/21 08:23 Non-Formulary Medication (Acetaminophen/ Diphenhydramine (Hm Pain Reliever Pm Caplet)) 650 mg PRN Q4HRS PRN PO PAIN 01/20/21 16:30 01/20/21 17:01 DC Atorvastatin Calcium (Lipitor) 40 mg QHS PO 01/20/21 21:00 01/25/21 20:48 Non-Formulary Medication (Cilostazol ) 100 mg BIDAFTMEAL PO 01/20/21 18:00 01/20/21 17:27 DC Fluticasone Propionate (Flonase) 1 spray DAILY NS 01/21/21 09:00 01/25/21 09:00 Non-Formulary Medication (Fluticasone/ Salmeterol (Advair 250-50 Diskus)) 1 puff Q12HR IH 01/20/21 21:00 01/20/21 17:16 DC Cetirizine HCl (ZyrTEC) 10 mg DAILY PO 01/21/21 09:00 01/25/21 08:23 Melatonin (Melatonin) 3 mg PRN QHS PRN PO INSOMNIA 01/20/21 17:00 01/22/21 20:13 Metoprolol Tartrate (Lopressor) 100 mg BID PO 01/20/21 21:00 01/25/21 20:48 Non-Formulary Medication (Tiotropium [place] (Spiriva)) 1 cap DAILY IH 01/21/21 09:00 01/20/21 17:17 DC Budesonide (Pulmicort) 0.5 mg RTBID NEB 01/20/21 20:00 01/20/21 19:43 DC Albuterol/ Ipratropium (Duoneb) 3 ml RTQID NEB 01/20/21 20:00 01/20/21 19:42 DC Albuterol/ Ipratropium (Combivent Respimat 20-100 Mcg) 1 puff RTQID INH 01/20/21 20:00 01/25/21 20:48 Fluticasone Furoate (ARNUITY 100mcg ELLIPTA) 1 puff BID INH 01/20/21 21:00 01/25/21 20:48 Non-Formulary Medication (Dextromethorphan Polistirex (Delsym)) 5 ml PRN BID PRN PO COUGH 01/20/21 21:15 UNV Risperidone (RisperDAL) 0.25 mg HS PO 01/22/21 21:00 01/23/21 17:36 DC 01/22/21 20:20 Fluvoxamine Maleate (Luvox) 25 mg DAILY PO 01/23/21 09:00 01/25/21 08:25 Apixaban (Eliquis) 2.5 mg BID PO 01/29/21 09:00 Acetaminophen (Tylenol) 650 mg BID PO 01/22/21 21:00 01/25/21 20:48 Albuterol Sulfate (Ventolin Hfa Inhaler) 1 puff PRN Q4HRS PRN INH SHORTNESS OF BREATH 01/22/21 19:45 01/24/21 08:18 Ferrous Sulfate (Feosol) 325 mg BID94 PO 01/23/21 16:00 01/25/21 16:43 Ascorbic Acid (Vitamin C) 500 mg BID94 PO 01/23/21 16:00 01/25/21 16:44 Risperidone (RisperDAL) 0.5 mg HS PO 01/23/21 21:00 01/25/21 17:15 DC 01/24/21 20:39 Chlorphenir/ Hydrocodone Polistirex (Tussionex) 5 ml PRN Q12HR PRN PO COUGH 01/25/21 09:30 Risperidone (RisperDAL) 0.75 mg HS PO 01/25/21 21:00 01/25/21 20:47 Current Medications Medications (Trade) Dose Ordered Sig/Nadeen Route PRN Reason Start Time Stop Time Status Last Admin Dose Admin Risperidone (RisperDAL) 0.75 mg HS PO 01/25/21 21:00 01/25/21 20:47 I have reviewed the current psychotropics carefully including drug interactions. Risk benefit ratio favors no change other than as noted in my dictated progress note. Diagnosis: Problems: (1) Schizoaffective disorder, bipolar type (2) Delusional disorder (3) Psychotic disorder (4) Impulse control disorder, unspecified (5) Anxiety disorder, unspecified (6) Bipolar disorder, current episode mixed, severe, with psychotic features JULIANN DORSEY MD Jan 25, 2021 21:58
[2021-01-26 05:49] VITALS: BP 117/75
[2021-01-26] MEDS: NICOTINE 14MG PATCH. TD SCH (08:23)
[2021-01-26] MEDS: CETIRIZINE HCL 10 MG TABLET PO SCH (08:24)
[2021-01-26] MEDS: PANTOPRAZOLE 40 MG TABLET. PO SCH (08:24)
[2021-01-26] MEDS: FUROSEMIDE 40 MG TABLET PO SCH (08:24)
[2021-01-26] MEDS: CYCLOBENZAPRINE 10 MG TABLET. PO SCH ×2 (08:24→20:43)
[2021-01-26] MEDS: FERROUS SULFATE 325 MG TABLET. PO SCH ×2 (08:25→15:25)
[2021-01-26] MEDS: LISINOPRIL 10 MG TABLET PO SCH (08:25)
[2021-01-26] MEDS: ASCORBIC ACID 500 MG TABLET PO SCH ×2 (08:25→15:26)
[2021-01-26] MEDS: METOPROLOL TART IMMED RELEASE 50 MG TABLET PO SCH ×2 (08:25→20:44)
[2021-01-26] MEDS: amLODIPine BESYLATE 10 MG TABLET PO SCH (08:26)
[2021-01-26] MEDS: IPRATROPIUM/ALBUTEROL 20/100mcg/INH INHALER. INH SCH ×4 (08:26→20:43)
[2021-01-26] MEDS: ACETAMINOPHEN 325 MG TABLET PO SCH ×2 (08:26→20:44)
[2021-01-26] MEDS: FLUTICASONE FUROATE 100mcg/INH ELLIPTA INHALER. INH SCH ×2 (08:27→20:43)
[2021-01-26] MEDS: FLUTICASONE 50MCG/NASAL SPRAY 16GM BOTTLE. NS SCH (08:27)
[2021-01-26] MEDS: HYDROCORTISONE 2.5% RECTAL CREAM 30GM TUBE. RC SCH ×2 (08:29→20:48)
--- NOTE | 2021-01-26 08:43 | PDOC ---
Exam Note: Blaise Note: This note is a late entry for 01/24/2021 covers elements not covered in my initial note. Subjective: The patient was seen individually in the evening of 01/24/2021 with Marlo HER, discussed and reviewed the chart. She slept 6 hours previous night. The patient is not forthcoming about her delusions but when I again questioned her closely she is quite paranoid, psychotic that Srinivas in fact was rappelling down from the 10th floor down to her apartment on the 8th floor from the outside smart. She is compliant with her psychotropics. We are increasing the Risperdal from 0.25 mg h.s. to 0.5 mg p.o. h.s. Review of Systems: Positive for some shortness of breath. Ambulation impaired in wheelchair. No CV, , eye, ENT system symptoms on review. I met with her in her room, does complain of some coughing. Mental Status Exam: The patient is reasonably oriented. Speech is coherent. Abstraction is fair. Computation impaired. Language function intact. Attention span short. Mood and affect withdrawn, still paranoid psychotic but slightly more insightful. No suicidal or homicidal ideation. Laboratory Data: Reviewed. Impression: Schizoaffective disorder, bipolar type mixed with psychotic features. Delusional disorder. Impulse control disorder unspecified. Anxiety disorder unspecified. Plan: Continue rest of the psychotropics unchanged. Increase Risperdal to 0.5 mg p.o. h.s. Assessment: Vital Signs/I&O: Vital Signs Date Time Temp Pulse Resp B/P (MAP) Pulse Ox O2 Delivery O2 Flow Rate FiO2 01/26/21 08:26 65 117/75 01/26/21 05:49 96.8 18 92 Nasal Cannula 2.0 I & O 01/25/21 01/25/21 01/26/21 15:00 23:00 07:00 Intake Total 840 ml 480 ml Balance 840 ml 480 ml Current Medications: Meds: Current Medications Medications (Trade) Dose Ordered Sig/Nadeen Route PRN Reason Start Time Stop Time Status Last Admin Dose Admin Acetaminophen (Tylenol) 650 mg PRN Q6HRS PRN PO MILD PAIN / TEMP > 100.3'F 01/20/21 15:45 01/22/21 15:32 DC 01/22/21 08:59 Multi-Ingredient Ointment (Analgesic [place]) 1 ortega PRN QID PRN TP MUSCLE PAIN 01/20/21 15:45 Al Hydroxide/Mg Hydroxide (Mylanta Plus Xs) 15 ml PRN AFTMEALHC PRN PO DYSPEPSIA 01/20/21 15:45 Magnesium Hydroxide (Milk Of Magnesia) 2,400 mg PRN QHS PRN PO CONSTIPATION 01/20/21 15:45 Nicotine (Nicoderm Cq 14mg Patch) 1 patch DAILY TD 01/20/21 16:00 01/26/21 08:23 Albuterol Sulfate (Ventolin) 0.108 mg PRN Q6HRS PRN IH wheezing 01/20/21 16:30 01/20/21 17:05 DC Amlodipine Besylate (Norvasc) 10 mg DAILY PO 01/21/21 09:00 01/26/21 08:26 Apixaban (Eliquis) 5 mg BID PO 01/20/21 21:00 01/22/21 11:48 DC 01/22/21 08:51 Clopidogrel Bisulfate (Plavix) 75 mg DAILY PO 01/21/21 09:00 01/22/21 13:19 DC 01/22/21 08:51 Cyclobenzaprine HCl (Flexeril) 10 mg BID PO 01/20/21 21:00 01/26/21 08:24 Diclofenac Sodium (Voltaren) 4 ortega QID TP 01/20/21 17:00 01/25/21 20:48 Ferrous Sulfate (Feosol) 325 mg DAILY PO 01/21/21 09:00 01/23/21 11:28 DC 01/23/21 08:30 Furosemide (Lasix) 40 mg DAILY PO 01/21/21 09:00 01/26/21 08:24 Hydrocortisone (Proctosol-Hc) 1 ortega BID RC 01/20/21 21:00 01/24/21 20:41 Lisinopril (Prinivil) 10 mg DAILY PO 01/21/21 09:00 01/26/21 08:25 Montelukast Sodium (Singulair) 10 mg HS PO 01/20/21 21:00 01/25/21 20:48 Pantoprazole Sodium (Protonix) 40 mg DAILYAC PO 01/21/21 07:30 01/26/21 08:24 Non-Formulary Medication (Acetaminophen/ Diphenhydramine (Hm Pain Reliever Pm Caplet)) 650 mg PRN Q4HRS PRN PO PAIN 01/20/21 16:30 01/20/21 17:01 DC Atorvastatin Calcium (Lipitor) 40 mg QHS PO 01/20/21 21:00 01/25/21 20:48 Non-Formulary Medication (Cilostazol ) 100 mg BIDAFTMEAL PO 01/20/21 18:00 01/20/21 17:27 DC Fluticasone Propionate (Flonase) 1 spray DAILY NS 01/21/21 09:00 01/25/21 09:00 Non-Formulary Medication (Fluticasone/ Salmeterol (Advair 250-50 Diskus)) 1 puff Q12HR IH 01/20/21 21:00 01/20/21 17:16 DC Cetirizine HCl (ZyrTEC) 10 mg DAILY PO 01/21/21 09:00 01/26/21 08:24 Melatonin (Melatonin) 3 mg PRN QHS PRN PO INSOMNIA 01/20/21 17:00 01/22/21 20:13 Metoprolol Tartrate (Lopressor) 100 mg BID PO 01/20/21 21:00 01/26/21 08:25 Non-Formulary Medication (Tiotropium [place] (Spiriva)) 1 cap DAILY IH 01/21/21 09:00 01/20/21 17:17 DC Budesonide (Pulmicort) 0.5 mg RTBID NEB 01/20/21 20:00 01/20/21 19:43 DC Albuterol/ Ipratropium (Duoneb) 3 ml RTQID NEB 01/20/21 20:00 01/20/21 19:42 DC Albuterol/ Ipratropium (Combivent Respimat 20-100 Mcg) 1 puff RTQID INH 01/20/21 20:00 01/26/21 08:26 Fluticasone Furoate (ARNUITY 100mcg ELLIPTA) 1 puff BID INH 01/20/21 21:00 01/26/21 08:27 Non-Formulary Medication (Dextromethorphan Polistirex (Delsym)) 5 ml PRN BID PRN PO COUGH 01/20/21 21:15 UNV Risperidone (RisperDAL) 0.25 mg HS PO 01/22/21 21:00 01/23/21 17:36 DC 01/22/21 20:20 Fluvoxamine Maleate (Luvox) 25 mg DAILY PO 01/23/21 09:00 01/26/21 08:25 Apixaban (Eliquis) 2.5 mg BID PO 01/29/21 09:00 Acetaminophen (Tylenol) 650 mg BID PO 01/22/21 21:00 01/26/21 08:26 Albuterol Sulfate (Ventolin Hfa Inhaler) 1 puff PRN Q4HRS PRN INH SHORTNESS OF BREATH 01/22/21 19:45 01/24/21 08:18 Ferrous Sulfate (Feosol) 325 mg BID94 PO 01/23/21 16:00 01/26/21 08:25 Ascorbic Acid (Vitamin C) 500 mg BID94 PO 01/23/21 16:00 01/26/21 08:25 Risperidone (RisperDAL) 0.5 mg HS PO 01/23/21 21:00 01/25/21 17:15 DC 01/24/21 20:39 Chlorphenir/ Hydrocodone Polistirex (Tussionex) 5 ml PRN Q12HR PRN PO COUGH 01/25/21 09:30 Risperidone (RisperDAL) 0.75 mg HS PO 01/25/21 21:00 01/25/21 20:47 Current Medications Medications (Trade) Dose Ordered Sig/Nadeen Route PRN Reason Start Time Stop Time Status Last Admin Dose Admin Risperidone (RisperDAL) 0.75 mg HS PO 01/25/21 21:00 01/25/21 20:47 I have reviewed the current psychotropics carefully including drug interactions. Risk benefit ratio favors no change other than as noted in my dictated progress note. Diagnosis: Problems: (1) Schizoaffective disorder, bipolar type (2) Delusional disorder (3) Psychotic disorder (4) Impulse control disorder, unspecified (5) Anxiety disorder, unspecified (6) Bipolar disorder, current episode mixed, severe, with psychotic features JULIANN DORSEY MD Jan 26, 2021 08:43
[2021-01-26] MEDS: DICLOFENAC SODIUM 1% TOPICAL GEL 100GM TUBE. TP SCH ×4 (09:00→20:45)
--- NOTE | 2021-01-26 09:12 | PDOC ---
Exam Note: Blaise Note: This note is a late entry for 01/25/2021 covers elements not covered in my initial note. Subjective: The patient was seen individually in the evening of 01/25/2021 with Ana HER, discussed and reviewed the chart. She slept 8-3/4 hours previous night. The patient was not forthcoming talking about any of her paranoia, about Srinivas last evening but again when questioned she remains psychotic but perhaps a little less so. Review of Systems: Ambulation impaired in wheelchair. No CV, , pulmonary, eye, ENT system symptoms on review. Positive for some coughing and Dr. Gamez is adjusting this. Mental Status Exam: The patient is reasonably oriented to herself. I met with her in her room at length. Speech is coherent. Abstraction is fair. Computation impaired. Language function intact. Attention span short. No s uicidal or homicidal ideation. Laboratory Data: Reviewed. Impression: Schizoaffective disorder, bipolar type mixed with psychotic features. Delusional disorder. Impulse control disorder unspecified. Anxiety disorder unspecified. Plan: Continue rest of the psychotropics unchanged. Increase Risperdal to 0.[address] Gamez has checked her chest x-ray which is unremarkable. She is a long-term smoker contributing to her symptoms. Assessment: Vital Signs/I&O: Vital Signs Date Time Temp Pulse Resp B/P (MAP) Pulse Ox O2 Delivery O2 Flow Rate FiO2 01/26/21 08:26 65 117/75 01/26/21 05:49 96.8 18 92 Nasal Cannula 2.0 I & O 01/25/21 01/25/21 01/26/21 15:00 23:00 07:00 Intake Total 840 ml 480 ml Balance 840 ml 480 ml Current Medications: Meds: Current Medications Medications (Trade) Dose Ordered Sig/Nadeen Route PRN Reason Start Time Stop Time Status Last Admin Dose Admin Acetaminophen (Tylenol) 650 mg PRN Q6HRS PRN PO MILD PAIN / TEMP > 100.3'F 01/20/21 15:45 01/22/21 15:32 DC 01/22/21 08:59 Multi-Ingredient Ointment (Analgesic [place]) 1 ortega PRN QID PRN TP MUSCLE PAIN 01/20/21 15:45 Al Hydroxide/Mg Hydroxide (Mylanta Plus Xs) 15 ml PRN AFTMEALHC PRN PO DYSPEPSIA 01/20/21 15:45 Magnesium Hydroxide (Milk Of Magnesia) 2,400 mg PRN QHS PRN PO CONSTIPATION 01/20/21 15:45 Nicotine (Nicoderm Cq 14mg Patch) 1 patch DAILY TD 01/20/21 16:00 01/26/21 08:23 Albuterol Sulfate (Ventolin) 0.108 mg PRN Q6HRS PRN IH wheezing 01/20/21 16:30 01/20/21 17:05 DC Amlodipine Besylate (Norvasc) 10 mg DAILY PO 01/21/21 09:00 01/26/21 08:26 Apixaban (Eliquis) 5 mg BID PO 01/20/21 21:00 01/22/21 11:48 DC 01/22/21 08:51 Clopidogrel Bisulfate (Plavix) 75 mg DAILY PO 01/21/21 09:00 01/22/21 13:19 DC 01/22/21 08:51 Cyclobenzaprine HCl (Flexeril) 10 mg BID PO 01/20/21 21:00 01/26/21 08:24 Diclofenac Sodium (Voltaren) 4 ortega QID TP 01/20/21 17:00 01/25/21 20:48 Ferrous Sulfate (Feosol) 325 mg DAILY PO 01/21/21 09:00 01/23/21 11:28 DC 01/23/21 08:30 Furosemide (Lasix) 40 mg DAILY PO 01/21/21 09:00 01/26/21 08:24 Hydrocortisone (Proctosol-Hc) 1 ortega BID RC 01/20/21 21:00 01/24/21 20:41 Lisinopril (Prinivil) 10 mg DAILY PO 01/21/21 09:00 01/26/21 08:25 Montelukast Sodium (Singulair) 10 mg HS PO 01/20/21 21:00 01/25/21 20:48 Pantoprazole Sodium (Protonix) 40 mg DAILYAC PO 01/21/21 07:30 01/26/21 08:24 Non-Formulary Medication (Acetaminophen/ Diphenhydramine (Hm Pain Reliever Pm Caplet)) 650 mg PRN Q4HRS PRN PO PAIN 01/20/21 16:30 6/8/21 17:01 DC Atorvastatin Calcium (Lipitor) 40 mg QHS PO 01/20/21 21:00 01/25/21 20:48 Non-Formulary Medication (Cilostazol ) 100 mg BIDAFTMEAL PO 01/20/21 18:00 01/20/21 17:27 DC Fluticasone Propionate (Flonase) 1 spray DAILY NS 01/21/21 09:00 01/25/21 09:00 Non-Formulary Medication (Fluticasone/ Salmeterol (Advair 250-50 Diskus)) 1 puff Q12HR IH 01/20/21 21:00 01/20/21 17:16 DC Cetirizine HCl (ZyrTEC) 10 mg DAILY PO 01/21/21 09:00 01/26/21 08:24 Melatonin (Melatonin) 3 mg PRN QHS PRN PO INSOMNIA 01/20/21 17:00 01/22/21 20:13 Metoprolol Tartrate (Lopressor) 100 mg BID PO 01/20/21 21:00 01/26/21 08:25 Non-Formulary Medication (Tiotropium [place] (Spiriva)) 1 cap DAILY IH 01/21/21 09:00 01/20/21 17:17 DC Budesonide (Pulmicort) 0.5 mg RTBID NEB 01/20/21 20:00 01/20/21 19:43 DC Albuterol/ Ipratropium (Duoneb) 3 ml RTQID NEB 01/20/21 20:00 01/20/21 19:42 DC Albuterol/ Ipratropium (Combivent Respimat 20-100 Mcg) 1 puff RTQID INH 01/20/21 20:00 01/26/21 08:26 Fluticasone Furoate (ARNUITY 100mcg ELLIPTA) 1 puff BID INH 01/20/21 21:00 01/26/21 08:27 Non-Formulary Medication (Dextromethorphan Polistirex (Delsym)) 5 ml PRN BID PRN PO COUGH 01/20/21 21:15 UNV Risperidone (RisperDAL) 0.25 mg HS PO 01/22/21 21:00 01/23/21 17:36 DC 01/22/21 20:20 Fluvoxamine Maleate (Luvox) 25 mg DAILY PO 01/23/21 09:00 01/26/21 08:25 Apixaban (Eliquis) 2.5 mg BID PO 01/29/21 09:00 Acetaminophen (Tylenol) 650 mg BID PO 01/22/21 21:00 01/26/21 08:26 Albuterol Sulfate (Ventolin Hfa Inhaler) 1 puff PRN Q4HRS PRN INH SHORTNESS OF BREATH 01/22/21 19:45 01/24/21 08:18 Ferrous Sulfate (Feosol) 325 mg BID94 PO 01/23/21 16:00 01/26/21 08:25 Ascorbic Acid (Vitamin C) 500 mg BID94 PO 01/23/21 16:00 01/26/21 08:25 Risperidone (RisperDAL) 0.5 mg HS PO 01/23/21 21:00 01/25/21 17:15 DC 01/24/21 20:39 Chlorphenir/ Hydrocodone Polistirex (Tussionex) 5 ml PRN Q12HR PRN PO COUGH 01/25/21 09:30 Risperidone (RisperDAL) 0.75 mg HS PO 01/25/21 21:00 01/25/21 20:47 Current Medications Medications (Trade) Dose Ordered Sig/Nadeen Route PRN Reason Start Time Stop Time Status Last Admin Dose Admin Risperidone (RisperDAL) 0.75 mg HS PO 01/25/21 21:00 01/25/21 20:47 I have reviewed the current psychotropics carefully including drug interactions. Risk benefit ratio favors no change other than as noted in my dictated progress note. Diagnosis: Problems: (1) Schizoaffective disorder, bipolar type (2) Delusional disorder (3) Psychotic disorder (4) Impulse control disorder, unspecified (5) Anxiety disorder, unspecified (6) Bipolar disorder, current episode mixed, severe, with psychotic features JULIANN DORSEY MD Jan 26, 2021 09:12
[2021-01-26 15:59] VITALS: BP 91/50
[2021-01-26] MEDS: ALBUTEROL SULFATE 8GM INHALER. INH PRN (20:43)
[2021-01-26] MEDS: MONTELUKAST 10 MG TABLET. PO SCH (20:44)
[2021-01-26] MEDS: ATORVASTATIN CALCIUM 20 MG TABLET PO SCH (20:44)
[2021-01-26] MEDS: risperiDONE 0.25 MG TABLET. PO SCH (20:44)
--- NOTE | 2021-01-26 22:02 | PDOC ---
Exam Note: Blaise Note: Please also refer to the separate dictated note~for this date of service dictated separately.~Patient seen individually. Discussed the patient with Nursing staff reviewed the chart.~Reviewed interim history and current functioning. Reviewed vital signs,~Labs/ Radiology~and current medications noted below. Continue current treatment with the changes noted in the dictated addendum note Assessment: Vital Signs/I&O: Vital Signs Date Time Temp Pulse Resp B/P (MAP) Pulse Ox O2 Delivery O2 Flow Rate FiO2 01/26/21 20:44 60 91/50 01/26/21 15:59 96.9 18 94 01/26/21 05:49 Nasal Cannula 2.0 I & O 01/25/21 01/25/21 01/26/21 15:00 23:00 07:00 Intake Total 840 ml 480 ml Balance 840 ml 480 ml Current Medications: Meds: Current Medications Medications (Trade) Dose Ordered Sig/Nadeen Route PRN Reason Start Time Stop Time Status Last Admin Dose Admin Acetaminophen (Tylenol) 650 mg PRN Q6HRS PRN PO MILD PAIN / TEMP > 100.3'F 01/20/21 15:45 01/22/21 15:32 DC 01/22/21 08:59 Multi-Ingredient Ointment (Analgesic [place]) 1 ortega PRN QID PRN TP MUSCLE PAIN 01/20/21 15:45 Al Hydroxide/Mg Hydroxide (Mylanta Plus Xs) 15 ml PRN AFTMEALHC PRN PO DYSPEPSIA 01/20/21 15:45 Magnesium Hydroxide (Milk Of Magnesia) 2,400 mg PRN QHS PRN PO CONSTIPATION 01/20/21 15:45 Nicotine (Nicoderm Cq 14mg Patch) 1 patch DAILY TD 01/20/21 16:00 01/26/21 08:23 Albuterol Sulfate (Ventolin) 0.108 mg PRN Q6HRS PRN IH wheezing 01/20/21 16:30 01/20/21 17:05 DC Amlodipine Besylate (Norvasc) 10 mg DAILY PO 01/21/21 09:00 01/26/21 08:26 Apixaban (Eliquis) 5 mg BID PO 01/20/21 21:00 01/22/21 11:48 DC 01/22/21 08:51 Clopidogrel Bisulfate (Plavix) 75 mg DAILY PO 01/21/21 09:00 01/22/21 13:19 DC 01/22/21 08:51 Cyclobenzaprine HCl (Flexeril) 10 mg BID PO 01/20/21 21:00 01/26/21 20:43 Diclofenac Sodium (Voltaren) 4 ortega QID TP 01/20/21 17:00 01/26/21 20:45 Ferrous Sulfate (Feosol) 325 mg DAILY PO 01/21/21 09:00 01/23/21 11:28 DC 01/23/21 08:30 Furosemide (Lasix) 40 mg DAILY PO 01/21/21 09:00 01/26/21 08:24 Hydrocortisone (Proctosol-Hc) 1 ortega BID RC 01/20/21 21:00 01/26/21 20:48 Lisinopril (Prinivil) 10 mg DAILY PO 01/21/21 09:00 01/26/21 08:25 Montelukast Sodium (Singulair) 10 mg HS PO 01/20/21 21:00 01/26/21 20:44 Pantoprazole Sodium (Protonix) 40 mg DAILYAC PO 01/21/21 07:30 01/26/21 08:24 Non-Formulary Medication (Acetaminophen/ Diphenhydramine (Hm Pain Reliever Pm Caplet)) 650 mg PRN Q4HRS PRN PO PAIN 01/20/21 16:30 01/20/21 17:01 DC Atorvastatin Calcium (Lipitor) 40 mg QHS PO 01/20/21 21:00 01/26/21 20:44 Non-Formulary Medication (Cilostazol ) 100 mg BIDAFTMEAL PO 01/20/21 18:00 01/20/21 17:27 DC Fluticasone Propionate (Flonase) 1 spray DAILY NS 01/21/21 09:00 01/25/21 09:00 Non-Formulary Medication (Fluticasone/ Salmeterol (Advair 250-50 Diskus)) 1 puff Q12HR IH 01/20/21 21:00 01/20/21 17:16 DC Cetirizine HCl (ZyrTEC) 10 mg DAILY PO 01/21/21 09:00 01/26/21 08:24 Melatonin (Melatonin) 3 mg PRN QHS PRN PO INSOMNIA 01/20/21 17:00 01/22/21 20:13 Metoprolol Tartrate (Lopressor) 100 mg BID PO 01/20/21 21:00 01/26/21 08:25 Non-Formulary Medication (Tiotropium [place] (Spiriva)) 1 cap DAILY IH 01/21/21 09:00 01/20/21 17:17 DC Budesonide (Pulmicort) 0.5 mg RTBID NEB 01/20/21 20:00 01/20/21 19:43 DC Albuterol/ Ipratropium (Duoneb) 3 ml RTQID NEB 01/20/21 20:00 01/20/21 19:42 DC Albuterol/ Ipratropium (Combivent Respimat 20-100 Mcg) 1 puff RTQID INH 01/20/21 20:00 01/26/21 20:43 Fluticasone Furoate (ARNUITY 100mcg ELLIPTA) 1 puff BID INH 01/20/21 21:00 01/26/21 20:43 Non-Formulary Medication (Dextromethorphan Polistirex (Delsym)) 5 ml PRN BID PRN PO COUGH 01/20/21 21:15 UNV Risperidone (RisperDAL) 0.25 mg HS PO 01/22/21 21:00 01/23/21 17:36 DC 01/22/21 20:20 Fluvoxamine Maleate (Luvox) 25 mg DAILY PO 01/23/21 09:00 01/26/21 08:25 Apixaban (Eliquis) 2.5 mg BID PO 01/29/21 09:00 Acetaminophen (Tylenol) 650 mg BID PO 01/22/21 21:00 01/26/21 20:44 Albuterol Sulfate (Ventolin Hfa Inhaler) 1 puff PRN Q4HRS PRN INH SHORTNESS OF BREATH 01/22/21 19:45 01/26/21 20:43 Ferrous Sulfate (Feosol) 325 mg BID94 PO 01/23/21 16:00 01/26/21 15:25 Ascorbic Acid (Vitamin C) 500 mg BID94 PO 01/23/21 16:00 01/26/21 15:26 Risperidone (RisperDAL) 0.5 mg HS PO 01/23/21 21:00 01/25/21 17:15 DC 01/24/21 20:39 Chlorphenir/ Hydrocodone Polistirex (Tussionex) 5 ml PRN Q12HR PRN PO COUGH 01/25/21 09:30 Risperidone (RisperDAL) 0.75 mg HS PO 01/25/21 21:00 01/26/21 20:44 I have reviewed the current psychotropics carefully including drug interactions. Risk benefit ratio favors no change other than as noted in my dictated progress note. Diagnosis: Problems: (1) Schizoaffective disorder, bipolar type (2) Delusional disorder (3) Psychotic disorder (4) Impulse control disorder, unspecified (5) Anxiety disorder, unspecified (6) Bipolar disorder, current episode mixed, severe, with psychotic features JULIANN DORSEY MD Jan 26, 2021 22:02
[2021-01-27 05:45] VITALS: BP 108/65
[2021-01-27 07:15] LABS: % BASOS 6 % (0-3)
--- NOTE | 2021-01-27 07:37 | PDOC ---
Exam Note: Blaise Note: This note is a late entry for 01/26/2021 covers elements not covered in my initial note. Subjective: The patient was seen individually in the evening of 01/26/2021 with Ana HER, discussed and reviewed the chart. She slept 9-1/2 hours previous night. I met with the patient in her room. She has been coming out of the room, somewhat little more interactive but this evening she was lying in bed with oxygen per nasal cannula, still complains of some phlegm. We will defer to Dr. Reyes Review of Systems: Ambulation impaired in wheelchair. No CV, , eye, ENT sys tem symptoms on review. Mental Status Exam: The patient is reasonably oriented. Speech is coherent, has some latency, low in volume. Abstraction is fair. Computation impaired. Language function intact. Mood and affect withdrawn, not very forthcoming, talking about Srinivas and her psychosis. Laboratory Data: Reviewed. Impression: Schizoaffective disorder, bipolar type mixed with psychotic features. Delusional disorder. Impulse control disorder unspecified. Anxiety disorder unspecified. Plan: Continue rest of the psychotropics unchanged. Risperdal is currently 0.75 mg p.o. h.s., Luvox 25 mg a day. We may need to increase this, melatonin 5 mg h.s. Defer medical management and her pulmonary condition to Dr. Reyes/Dr. Gamez. Assessment: Vital Signs/I&O: Vital Signs Date Time Temp Pulse Resp B/P (MAP) Pulse Ox O2 Delivery O2 Flow Rate FiO2 01/27/21 05:45 97.6 61 20 108/65 (79) 95 Nasal Cannula 2.0 I & O 01/26/21 01/26/21 01/27/21 15:00 23:00 07:00 Intake Total 840 ml 360 ml 120 ml Balance 840 ml 360 ml 120 ml Current Medications: Meds: Current Medications Medications (Trade) Dose Ordered Sig/Nadeen Route PRN Reason Start Time Stop Time Status Last Admin Dose Admin Acetaminophen (Tylenol) 650 mg PRN Q6HRS PRN PO MILD PAIN / TEMP > 100.3'F 01/20/21 15:45 01/22/21 15:32 DC 01/22/21 08:59 Multi-Ingredient Ointment (Analgesic [place]) 1 ortega PRN QID PRN TP MUSCLE PAIN 01/20/21 15:45 Al Hydroxide/Mg Hydroxide (Mylanta Plus Xs) 15 ml PRN AFTMEALHC PRN PO DYSPEPSIA 01/20/21 15:45 Magnesium Hydroxide (Milk Of Magnesia) 2,400 mg PRN QHS PRN PO CONSTIPATION 01/20/21 15:45 Nicotine (Nicoderm Cq 14mg Patch) 1 patch DAILY TD 01/20/21 16:00 01/26/21 08:23 Albuterol Sulfate (Ventolin) 0.108 mg PRN Q6HRS PRN IH wheezing 01/20/21 16:30 01/20/21 17:05 DC Amlodipine Besylate (Norvasc) 10 mg DAILY PO 01/21/21 09:00 01/26/21 08:26 Apixaban (Eliquis) 5 mg BID PO 01/20/21 21:00 01/22/21 11:48 DC 01/22/21 08:51 Clopidogrel Bisulfate (Plavix) 75 mg DAILY PO 01/21/21 09:00 01/22/21 13:19 DC 01/22/21 08:51 Cyclobenzaprine HCl (Flexeril) 10 mg BID PO 01/20/21 21:00 01/26/21 20:43 Diclofenac Sodium (Voltaren) 4 ortega QID TP 01/20/21 17:00 01/26/21 20:45 Ferrous Sulfate (Feosol) 325 mg DAILY PO 01/21/21 09:00 01/23/21 11:28 DC 01/23/21 08:30 Furosemide (Lasix) 40 mg DAILY PO 01/21/21 09:00 01/26/21 08:24 Hydrocortisone (Proctosol-Hc) 1 ortega BID RC 01/20/21 21:00 01/26/21 20:48 Lisinopril (Prinivil) 10 mg DAILY PO 01/21/21 09:00 01/26/21 08:25 Montelukast Sodium (Singulair) 10 mg HS PO 01/20/21 21:00 01/26/21 20:44 Pantoprazole Sodium (Protonix) 40 mg DAILYAC PO 01/21/21 07:30 01/26/21 08:24 Non-Formulary Medication (Acetaminophen/ Diphenhydramine (Hm Pain Reliever Pm Caplet)) 650 mg PRN Q4HRS PRN PO PAIN 01/20/21 16:30 01/20/21 17:01 DC Atorvastatin Calcium (Lipitor) 40 mg QHS PO 01/20/21 21:00 01/26/21 20:44 Non-Formulary Medication (Cilostazol ) 100 mg BIDAFTMEAL PO 01/20/21 18:00 01/20/21 17:27 DC Fluticasone Propionate (Flonase) 1 spray DAILY NS 01/21/21 09:00 01/25/21 09:00 Non-Formulary Medication (Fluticasone/ Salmeterol (Advair 250-50 Diskus)) 1 puff Q12HR IH 01/20/21 21:00 01/20/21 17:16 DC Cetirizine HCl (ZyrTEC) 10 mg DAILY PO 01/21/21 09:00 01/26/21 08:24 Melatonin (Melatonin) 3 mg PRN QHS PRN PO INSOMNIA 01/20/21 17:00 01/22/21 20:13 Metoprolol Tartrate (Lopressor) 100 mg BID PO 01/20/21 21:00 01/26/21 08:25 Non-Formulary Medication (Tiotropium [place] (Spiriva)) 1 cap DAILY IH 01/21/21 09:00 01/20/21 17:17 DC Budesonide (Pulmicort) 0.5 mg RTBID NEB 01/20/21 20:00 01/20/21 19:43 DC Albuterol/ Ipratropium (Duoneb) 3 ml RTQID NEB 01/20/21 20:00 01/20/21 19:42 DC Albuterol/ Ipratropium (Combivent Respimat 20-100 Mcg) 1 puff RTQID INH 01/20/21 20:00 01/26/21 20:43 Fluticasone Furoate (ARNUITY 100mcg ELLIPTA) 1 puff BID INH 01/20/21 21:00 01/26/21 20:43 Non-Formulary Medication (Dextromethorphan Polistirex (Delsym)) 5 ml PRN BID PRN PO COUGH 01/20/21 21:15 UNV Risperidone (RisperDAL) 0.25 mg HS PO 01/22/21 21:00 01/23/21 17:36 DC 01/22/21 20:20 Fluvoxamine Maleate (Luvox) 25 mg DAILY PO 01/23/21 09:00 01/26/21 08:25 Apixaban (Eliquis) 2.5 mg BID PO 01/29/21 09:00 Acetaminophen (Tylenol) 650 mg BID PO 01/22/21 21:00 01/26/21 20:44 Albuterol Sulfate (Ventolin Hfa Inhaler) 1 puff PRN Q4HRS PRN INH SHORTNESS OF BREATH 01/22/21 19:45 01/26/21 20:43 Ferrous Sulfate (Feosol) 325 mg BID94 PO 01/23/21 16:00 01/26/21 15:25 Ascorbic Acid (Vitamin C) 500 mg BID94 PO 01/23/21 16:00 01/26/21 15:26 Risperidone (RisperDAL) 0.5 mg HS PO 01/23/21 21:00 01/25/21 17:15 DC 01/24/21 20:39 Chlorphenir/ Hydrocodone Polistirex (Tussionex) 5 ml PRN Q12HR PRN PO COUGH 01/25/21 09:30 Risperidone (RisperDAL) 0.75 mg HS PO 01/25/21 21:00 01/26/21 20:44 I have reviewed the current psychotropics carefully including drug interactions. Risk benefit ratio favors no change other than as noted in my dictated progress note. Diagnosis: Problems: (1) Schizoaffective disorder, bipolar type (2) Delusional disorder (3) Psychotic disorder (4) Impulse control disorder, unspecified (5) Anxiety disorder, unspecified (6) Bipolar disorder, current episode mixed, severe, with psychotic features JULIANN DORSEY MD Jan 27, 2021 07:37
[2021-01-27] MEDS: HYDROCORTISONE 2.5% RECTAL CREAM 30GM TUBE. RC SCH ×2 (09:00→19:53)
[2021-01-27] MEDS: LISINOPRIL 10 MG TABLET PO SCH (09:00)
[2021-01-27] MEDS: DICLOFENAC SODIUM 1% TOPICAL GEL 100GM TUBE. TP SCH ×4 (09:00→19:53)
[2021-01-27] MEDS: FLUTICASONE FUROATE 100mcg/INH ELLIPTA INHALER. INH SCH (09:19)
[2021-01-27] MEDS: IPRATROPIUM/ALBUTEROL 20/100mcg/INH INHALER. INH SCH ×4 (09:20→19:52)
[2021-01-27] MEDS: FLUTICASONE 50MCG/NASAL SPRAY 16GM BOTTLE. NS SCH (09:21)
[2021-01-27] MEDS: PANTOPRAZOLE 40 MG TABLET. PO SCH (09:21)
[2021-01-27] MEDS: amLODIPine BESYLATE 10 MG TABLET PO SCH (09:22)
[2021-01-27] MEDS: CETIRIZINE HCL 10 MG TABLET PO SCH (09:22)
[2021-01-27] MEDS: METOPROLOL TART IMMED RELEASE 50 MG TABLET PO SCH ×2 (09:22→19:54)
[2021-01-27] MEDS: ACETAMINOPHEN 325 MG TABLET PO SCH ×2 (09:23→19:53)
[2021-01-27] MEDS: CYCLOBENZAPRINE 10 MG TABLET. PO SCH ×2 (09:23→19:53)
[2021-01-27] MEDS: ASCORBIC ACID 500 MG TABLET PO SCH ×2 (09:23→16:48)
[2021-01-27] MEDS: FUROSEMIDE 40 MG TABLET PO SCH (09:23)
[2021-01-27] MEDS: FERROUS SULFATE 325 MG TABLET. PO SCH ×2 (09:23→16:48)
[2021-01-27] MEDS: NICOTINE 14MG PATCH. TD SCH (09:25)
[2021-01-27 15:40] VITALS: BP 92/57
[2021-01-27] MEDS: ATORVASTATIN CALCIUM 20 MG TABLET PO SCH (19:52)
[2021-01-27] MEDS: MONTELUKAST 10 MG TABLET. PO SCH (19:53)
[2021-01-27] MEDS: risperiDONE 0.25 MG TABLET. PO SCH (19:53)
[2021-01-27] MEDS: ALBUTEROL SULFATE 8GM INHALER. INH PRN (19:57)
--- NOTE | 2021-01-27 22:10 | PDOC ---
Exam Note: Blaise Note: Please also refer to the separate dictated note~for this date of service dictated separately.~Patient seen individually. Discussed the patient with Nursing staff reviewed the chart.~Reviewed interim history and current functioning. Reviewed vital signs,~Labs/ Radiology~and current medications noted below. Continue current treatment with the changes noted in the dictated addendum note Assessment: Vital Signs/I&O: Vital Signs Date Time Temp Pulse Resp B/P (MAP) Pulse Ox O2 Delivery O2 Flow Rate FiO2 01/27/21 19:54 61 92/57 01/27/21 15:40 96.5 18 92 01/27/21 05:45 Nasal Cannula 2.0 I & O 01/26/21 01/26/21 01/27/21 15:00 23:00 07:00 Intake Total 840 ml 360 ml 120 ml Balance 840 ml 360 ml 120 ml Current Medications: Meds: Current Medications Medications (Trade) Dose Ordered Sig/Nadeen Route PRN Reason Start Time Stop Time Status Last Admin Dose Admin Acetaminophen (Tylenol) 650 mg PRN Q6HRS PRN PO MILD PAIN / TEMP > 100.3'F 01/20/21 15:45 01/22/21 15:32 DC 01/22/21 08:59 Multi-Ingredient Ointment (Analgesic [place]) 1 ortega PRN QID PRN TP MUSCLE PAIN 01/20/21 15:45 Al Hydroxide/Mg Hydroxide (Mylanta Plus Xs) 15 ml PRN AFTMEALHC PRN PO DYSPEPSIA 01/20/21 15:45 Magnesium Hydroxide (Milk Of Magnesia) 2,400 mg PRN QHS PRN PO CONSTIPATION 01/20/21 15:45 Nicotine (Nicoderm Cq 14mg Patch) 1 patch DAILY TD 01/20/21 16:00 01/27/21 09:25 Albuterol Sulfate (Ventolin) 0.108 mg PRN Q6HRS PRN IH wheezing 01/20/21 16:30 01/20/21 17:05 DC Amlodipine Besylate (Norvasc) 10 mg DAILY PO 01/21/21 09:00 01/27/21 09:22 Apixaban (Eliquis) 5 mg BID PO 01/20/21 21:00 01/22/21 11:48 DC 01/22/21 08:51 Clopidogrel Bisulfate (Plavix) 75 mg DAILY PO 01/21/21 09:00 01/22/21 13:19 DC 01/22/21 08:51 Cyclobenzaprine HCl (Flexeril) 10 mg BID PO 01/20/21 21:00 01/27/21 19:53 Diclofenac Sodium (Voltaren) 4 ortega QID TP 01/20/21 17:00 01/27/21 19:53 Ferrous Sulfate (Feosol) 325 mg DAILY PO 01/21/21 09:00 01/23/21 11:28 DC 01/23/21 08:30 Furosemide (Lasix) 40 mg DAILY PO 01/21/21 09:00 01/27/21 09:23 Hydrocortisone (Proctosol-Hc) 1 ortega BID RC 01/20/21 21:00 01/27/21 19:53 Lisinopril (Prinivil) 10 mg DAILY PO 01/21/21 09:00 01/27/21 09:00 Montelukast Sodium (Singulair) 10 mg HS PO 01/20/21 21:00 01/27/21 19:53 Pantoprazole Sodium (Protonix) 40 mg DAILYAC PO 01/21/21 07:30 01/27/21 09:21 Non-Formulary Medication (Acetaminophen/ Diphenhydramine (Hm Pain Reliever Pm Caplet)) 650 mg PRN Q4HRS PRN PO PAIN 01/20/21 16:30 01/20/21 17:01 DC Atorvastatin Calcium (Lipitor) 40 mg QHS PO 01/20/21 21:00 01/27/21 19:52 Non-Formulary Medication (Cilostazol ) 100 mg BIDAFTMEAL PO 01/20/21 18:00 01/20/21 17:27 DC Fluticasone Propionate (Flonase) 1 spray DAILY NS 01/21/21 09:00 01/27/21 09:21 Non-Formulary Medication (Fluticasone/ Salmeterol (Advair 250-50 Diskus)) 1 puff Q12HR IH 01/20/21 21:00 01/20/21 17:16 DC Cetirizine HCl (ZyrTEC) 10 mg DAILY PO 01/21/21 09:00 01/27/21 09:22 Melatonin (Melatonin) 3 mg PRN QHS PRN PO INSOMNIA 01/20/21 17:00 01/22/21 20:13 Metoprolol Tartrate (Lopressor) 100 mg BID PO 01/20/21 21:00 01/27/21 09:22 Non-Formulary Medication (Tiotropium [place] (Spiriva)) 1 cap DAILY IH 01/21/21 09:00 01/20/21 17:17 DC Budesonide (Pulmicort) 0.5 mg RTBID NEB 01/20/21 20:00 01/20/21 19:43 DC Albuterol/ Ipratropium (Duoneb) 3 ml RTQID NEB 01/20/21 20:00 01/20/21 19:42 DC Albuterol/ Ipratropium (Combivent Respimat 20-100 Mcg) 1 puff RTQID INH 01/20/21 20:00 01/27/21 19:52 Fluticasone Furoate (ARNUITY 100mcg ELLIPTA) 1 puff BID INH 01/20/21 21:00 01/27/21 21:18 DC 01/27/21 09:19 Non-Formulary Medication (Dextromethorphan Polistirex (Delsym)) 5 ml PRN BID PRN PO COUGH 01/20/21 21:15 UNV Risperidone (RisperDAL) 0.25 mg HS PO 01/22/21 21:00 01/23/21 17:36 DC 01/22/21 20:20 Fluvoxamine Maleate (Luvox) 25 mg DAILY PO 01/23/21 09:00 01/27/21 09:23 Apixaban (Eliquis) 2.5 mg BID PO 01/29/21 09:00 Acetaminophen (Tylenol) 650 mg BID PO 01/22/21 21:00 01/27/21 19:53 Albuterol Sulfate (Ventolin Hfa Inhaler) 1 puff PRN Q4HRS PRN INH SHORTNESS OF BREATH 01/22/21 19:45 01/27/21 19:57 Ferrous Sulfate (Feosol) 325 mg BID94 PO 01/23/21 16:00 01/27/21 16:48 Ascorbic Acid (Vitamin C) 500 mg BID94 PO 01/23/21 16:00 01/27/21 16:48 Risperidone (RisperDAL) 0.5 mg HS PO 01/23/21 21:00 01/25/21 17:15 DC 01/24/21 20:39 Chlorphenir/ Hydrocodone Polistirex (Tussionex) 5 ml PRN Q12HR PRN PO COUGH 01/25/21 09:30 Risperidone (RisperDAL) 0.75 mg HS PO 01/25/21 21:00 01/27/21 19:53 Fluticasone Furoate (ARNUITY 100mcg ELLIPTA) 1 puff DAILY INH 01/28/21 09:00 I have reviewed the current psychotropics carefully including drug interactions. Risk benefit ratio favors no change other than as noted in my dictated progress note. Diagnosis: Problems: (1) Schizoaffective disorder, bipolar type (2) Delusional disorder (3) Psychotic disorder (4) Impulse control disorder, unspecified (5) Anxiety disorder, unspecified (6) Bipolar disorder, current episode mixed, severe, with psychotic features JULIANN DORSEY MD Jan 27, 2021 22:10
--- NOTE | 2021-01-27 23:27 | PDOC ---
Exam Note: Blaise Note: This note covers elements not covered in my initial note. Subjective: The patient was seen individually in the evening of 01/27/2021 with Ambar HER, discussed and reviewed the chart. She slept 5-3/4 hours previous night. Overall the patient has done better. She has been coming out of her room coughing and respiratory symptoms are improved. She has not voiced about Srinivas harassing her but as I met with her at length in the evening she was still delusional about this feeling that he could come back to my apartment once I go back there. She states her family has told her to inform the police about this but she is not sure what good that would do. Review of Systems: Positive for some shortness of breath. No CV, , eye, ENT system symptoms on review. Mental Status Exam: The patient is reasonably oriented. I met with her in the dayroom. Speech is coherent. Abstraction is fair. Computation impaired. Language function intact. Mood and affect appears less withdrawn. Laboratory Data: Reviewed. Impression: Schizoaffective disorder, bipolar type mixed with psychotic features. Delusional disorder. Impulse control disorder unspecified. Anxiety disorder unspecified. Plan: Continue rest of the psychotropics unchanged. Risperdal 0.75 mg p.o. h.s., Luvox 25 mg a day. We may increase this in due course. I have been careful not to increase it too rapidly given her history of probable schizoaffective disorder, bipolar type and risk of exacerbating the bipolar mood swings. I certainly feel she is obsessive in addition to being psychotic and will plan to increase the Luvox in due course. Assessment: Vital Signs/I&O: Vital Signs Date Time Temp Pulse Resp B/P (MAP) Pulse Ox O2 Delivery O2 Flow Rate FiO2 01/27/21 19:54 61 92/57 01/27/21 15:40 96.5 18 92 01/27/21 05:45 Nasal Cannula 2.0 I & O 01/26/21 01/26/21 01/27/21 15:00 23:00 07:00 Intake Total 840 ml 360 ml 120 ml Balance 840 ml 360 ml 120 ml Current Medications: Meds: Current Medications Medications (Trade) Dose Ordered Sig/Nadeen Route PRN Reason Start Time Stop Time Status Last Admin Dose Admin Acetaminophen (Tylenol) 650 mg PRN Q6HRS PRN PO MILD PAIN / TEMP > 100.3'F 01/20/21 15:45 01/22/21 15:32 DC 01/22/21 08:59 Multi-Ingredient Ointment (Analgesic [place]) 1 ortega PRN QID PRN TP MUSCLE PAIN 01/20/21 15:45 Al Hydroxide/Mg Hydroxide (Mylanta Plus Xs) 15 ml PRN AFTMEALHC PRN PO DYSPEPSIA 01/20/21 15:45 Magnesium Hydroxide (Milk Of Magnesia) 2,400 mg PRN QHS PRN PO CONSTIPATION 01/20/21 15:45 Nicotine (Nicoderm Cq 14mg Patch) 1 patch DAILY TD 01/20/21 16:00 01/27/21 09:25 Albuterol Sulfate (Ventolin) 0.108 mg PRN Q6HRS PRN IH wheezing 01/20/21 16:30 01/20/21 17:05 DC Amlodipine Besylate (Norvasc) 10 mg DAILY PO 01/21/21 09:00 01/27/21 09:22 Apixaban (Eliquis) 5 mg BID PO 01/20/21 21:00 01/22/21 11:48 DC 01/22/21 08:51 Clopidogrel Bisulfate (Plavix) 75 mg DAILY PO 01/21/21 09:00 01/22/21 13:19 DC 01/22/21 08:51 Cyclobenzaprine HCl (Flexeril) 10 mg BID PO 01/20/21 21:00 01/27/21 19:53 Diclofenac Sodium (Voltaren) 4 ortega QID TP 01/20/21 17:00 01/27/21 19:53 Ferrous Sulfate (Feosol) 325 mg DAILY PO 01/21/21 09:00 01/23/21 11:28 DC 01/23/21 08:30 Furosemide (Lasix) 40 mg DAILY PO 01/21/21 09:00 01/27/21 09:23 Hydrocortisone (Proctosol-Hc) 1 ortega BID RC 01/20/21 21:00 01/27/21 19:53 Lisinopril (Prinivil) 10 mg DAILY PO 01/21/21 09:00 01/27/21 09:00 Montelukast Sodium (Singulair) 10 mg HS PO 01/20/21 21:00 01/27/21 19:53 Pantoprazole Sodium (Protonix) 40 mg DAILYAC PO 01/21/21 07:30 01/27/21 09:21 Non-Formulary Medication (Acetaminophen/ Diphenhydramine (Hm Pain Reliever Pm Caplet)) 650 mg PRN Q4HRS PRN PO PAIN 01/20/21 16:30 01/20/21 17:01 DC Atorvastatin Calcium (Lipitor) 40 mg QHS PO 01/20/21 21:00 01/27/21 19:52 Non-Formulary Medication (Cilostazol ) 100 mg BIDAFTMEAL PO 01/20/21 18:00 01/20/21 17:27 DC Fluticasone Propionate (Flonase) 1 spray DAILY NS 01/21/21 09:00 01/27/21 09:21 Non-Formulary Medication (Fluticasone/ Salmeterol (Advair 250-50 Diskus)) 1 puff Q12HR IH 01/20/21 21:00 01/20/21 17:16 DC Cetirizine HCl (ZyrTEC) 10 mg DAILY PO 01/21/21 09:00 01/27/21 09:22 Melatonin (Melatonin) 3 mg PRN QHS PRN PO INSOMNIA 01/20/21 17:00 01/22/21 20:13 Metoprolol Tartrate (Lopressor) 100 mg BID PO 01/20/21 21:00 01/27/21 09:22 Non-Formulary Medication (Tiotropium [place] (Spiriva)) 1 cap DAILY IH 01/21/21 09:00 01/20/21 17:17 DC Budesonide (Pulmicort) 0.5 mg RTBID NEB 01/20/21 20:00 01/20/21 19:43 DC Albuterol/ Ipratropium (Duoneb) 3 ml RTQID NEB 01/20/21 20:00 01/20/21 19:42 DC Albuterol/ Ipratropium (Combivent Respimat 20-100 Mcg) 1 puff RTQID INH 01/20/21 20:00 01/27/21 19:52 Fluticasone Furoate (ARNUITY 100mcg ELLIPTA) 1 puff BID INH 01/20/21 21:00 01/27/21 21:18 DC 01/27/21 09:19 Non-Formulary Medication (Dextromethorphan Polistirex (Delsym)) 5 ml PRN BID PRN PO COUGH 01/20/21 21:15 UNV Risperidone (RisperDAL) 0.25 mg HS PO 01/22/21 21:00 01/23/21 17:36 DC 01/22/21 20:20 Fluvoxamine Maleate (Luvox) 25 mg DAILY PO 01/23/21 09:00 01/27/21 09:23 Apixaban (Eliquis) 2.5 mg BID PO 01/29/21 09:00 Acetaminophen (Tylenol) 650 mg BID PO 01/22/21 21:00 01/27/21 19:53 Albuterol Sulfate (Ventolin Hfa Inhaler) 1 puff PRN Q4HRS PRN INH SHORTNESS OF BREATH 01/22/21 19:45 01/27/21 19:57 Ferrous Sulfate (Feosol) 325 mg BID94 PO 01/23/21 16:00 01/27/21 16:48 Ascorbic Acid (Vitamin C) 500 mg BID94 PO 01/23/21 16:00 01/27/21 16:48 Risperidone (RisperDAL) 0.5 mg HS PO 01/23/21 21:00 01/25/21 17:15 DC 01/24/21 20:39 Chlorphenir/ Hydrocodone Polistirex (Tussionex) 5 ml PRN Q12HR PRN PO COUGH 01/25/21 09:30 Risperidone (RisperDAL) 0.75 mg HS PO 01/25/21 21:00 01/27/21 19:53 Fluticasone Furoate (ARNUITY 100mcg ELLIPTA) 1 puff DAILY INH 01/28/21 09:00 I have reviewed the current psychotropics carefully including drug interactions. Risk benefit ratio favors no change other than as noted in my dictated progress note. Diagnosis: Problems: (1) Schizoaffective disorder, bipolar type (2) Delusional disorder (3) Psychotic disorder (4) Impulse control disorder, unspecified (5) Anxiety disorder, unspecified (6) Bipolar disorder, current episode mixed, severe, with psychotic features JULIANN DORSEY MD Jan 27, 2021 23:27
[2021-01-28] MEDS: ALBUTEROL SULFATE 8GM INHALER. INH PRN (03:40)
[2021-01-28 05:43] VITALS: BP 109/68
[2021-01-28 06:01] LABS: BASO # 0.2 x10^3/uL (0.0-0.2); BASO % 2 % (0-3); EOS # 0.2 x10^3/uL (0.0-0.7); EOS % 3 % (0-3); HEMATOCRIT 21.4 % (36.0-47.0); LYMPH # 1.3 x10^3/uL (1.0-4.8); LYMPH % 17 % (24-48); MEAN CORPUSCULAR HEMOGLOBIN 25 pg (25-35); MEAN CORPUSCULAR HGB CONC 31 g/dL (31-37); MEAN CORPUSCULAR VOLUME 82 fL (79-100); MONO % 13 % (0-9); NEUT # 4.9 x10^3uL (1.8-7.7); NEUT % 65 % (31-73); PLATELET COUNT 297 x10^3/uL (140-400); RED BLOOD COUNT 2.62 x10^6/uL (3.50-5.40); RED CELL DISTRIBUTION WIDTH 32.4 % (11.5-14.5); WHITE BLOOD COUNT 7.5 x10^3/uL (4.0-11.0)
[2021-01-28 06:04] LABS: HEMOGLOBIN 6.6 g/dL (12.0-15.5)
[2021-01-28] MEDS ORDERED: NICO1PAT25 TP (06:20)
[2021-01-28 06:21] LABS: ALBUMIN 3.1 g/dL (3.4-5.0); CALCIUM 8.7 mg/dL (8.5-10.1); GFR 66.7; POTASSIUM 4.6 mmol/L (3.5-5.1); TOTAL BILIRUBIN 0.3 mg/dL (0.2-1.0); TOTAL PROTEIN 6.1 g/dL (6.4-8.2)
[2021-01-28] MEDS ORDERED: FLUV50TA2 PO (06:23)
[2021-01-28] MEDS ORDERED: RISP0.5T24 PO (06:24)
[2021-01-28] MEDS ORDERED: ASCO500C PO (06:25)
[2021-01-28] MEDS: FLUTICASONE 50MCG/NASAL SPRAY 16GM BOTTLE. NS SCH (07:37)
[2021-01-28] MEDS: FUROSEMIDE 40 MG TABLET PO SCH (07:37)
[2021-01-28] MEDS: ACETAMINOPHEN 325 MG TABLET PO SCH (07:37)
[2021-01-28] MEDS: CYCLOBENZAPRINE 10 MG TABLET. PO SCH (07:37)
[2021-01-28] MEDS: CETIRIZINE HCL 10 MG TABLET PO SCH (07:37)
[2021-01-28] MEDS: PANTOPRAZOLE 40 MG TABLET. PO SCH (07:38)
[2021-01-28] MEDS: ASCORBIC ACID 500 MG TABLET PO SCH (07:38)
[2021-01-28] MEDS: IPRATROPIUM/ALBUTEROL 20/100mcg/INH INHALER. INH SCH (07:39)
[2021-01-28] MEDS: FERROUS SULFATE 325 MG TABLET. PO SCH (07:39)
[2021-01-28] MEDS: METOPROLOL TART IMMED RELEASE 50 MG TABLET PO SCH (07:40)
[2021-01-28] MEDS: LISINOPRIL 10 MG TABLET PO SCH (07:40)
[2021-01-28] MEDS: HYDROCORTISONE 2.5% RECTAL CREAM 30GM TUBE. RC SCH (07:40)
[2021-01-28] MEDS: amLODIPine BESYLATE 10 MG TABLET PO SCH (07:40)
[2021-01-28] MEDS: NICOTINE 14MG PATCH. TD SCH (07:41)
[2021-01-28] MEDS: DICLOFENAC SODIUM 1% TOPICAL GEL 100GM TUBE. TP SCH (07:42)
[2021-01-28] MEDS ORDERED: FLUTICASONE FUROATE 100mcg/INH ELLIPTA INHALER. INH SCH (09:00)
[2021-01-28 11:52] LABS: % ATYL 6 % (0-0); % BANDS 3 % (0-9); % BASOS 1 % (0-3); % EOS 3 % (0-5); % LYMPHS 51 % (24-48); % MONOS 4 % (0-10); % SEGS 32 % (35-66); NUCLEATED RBC 20
[2021-01-28 11:55] LABS: ANISOCYTOSIS MARKED; PLT ESTIMATE ADEQUATE (ADEQUATE); POIKILOCYTOSIS SLIGHT; POLYCHROMASIA SLIGHT
--- NOTE | 2021-01-28 22:09 | PDOC ---
Exam Note: Blaise Note: Please also refer to the separate dictated note~for this date of service dictated separately.~Patient seen individually. Discussed the patient with Nursing staff reviewed the chart.~Reviewed interim history and current functioning. Reviewed vital signs,~Labs/ Radiology~and current medications noted below. Continue current treatment with the changes noted in the dictated addendum note Assessment: Vital Signs/I&O: Vital Signs Date Time Temp Pulse Resp B/P (MAP) Pulse Ox O2 Delivery O2 Flow Rate FiO2 01/28/21 05:43 97.7 62 18 109/68 (82) 99 01/27/21 05:45 Nasal Cannula 2.0 I & O 01/27/21 01/27/21 01/28/21 15:00 23:00 07:00 Intake Total 600 ml 600 ml Balance 600 ml 600 ml Labs: Laboratory Tests Test 01/28/21 05:50 White Blood Count 7.5 x10^3/uL (4.0-11.0) Red Blood Count 2.62 x10^6/uL (3.50-5.40) L Hemoglobin 6.6 g/dL (12.0-15.5) *L Hematocrit 21.4 % (36.0-47.0) L Mean Corpuscular Volume 82 fL (79-100) # Mean Corpuscular Hemoglobin 25 pg (25-35) Mean Corpuscular Hemoglobin Concent 31 g/dL (31-37) Red Cell Distribution Width 32.4 % (11.5-14.5) H Platelet Count 297 x10^3/uL (140-400) Neutrophils (%) (Auto) 65 % (31-73) Lymphocytes (%) (Auto) 17 % (24-48) L Monocytes (%) (Auto) 13 % (0-9) H Eosinophils (%) (Auto) 3 % (0-3) Basophils (%) (Auto) 2 % (0-3) Neutrophils # (Auto) 4.9 x10^3uL (1.8-7.7) Lymphocytes # (Auto) 1.3 x10^3/uL (1.0-4.8) Monocytes # (Auto) 1.0 x10^3/uL (0.0-1.1) Eosinophils # (Auto) 0.2 x10^3/uL (0.0-0.7) Basophils # (Auto) 0.2 x10^3/uL (0.0-0.2) Segmented Neutrophils % 32 % (35-66) L Band Neutrophils % 3 % (0-9) Lymphocytes % 51 % (24-48) H Atypical Lymphocytes % (Manual) 6 % (0-0) H Monocytes % 4 % (0-10) Eosinophils % 3 % (0-5) Basophils % 1 % (0-3) Nucleated Red Blood Cells 20 Platelet Estimate Adequate (ADEQUATE) Polychromasia Slight Poikilocytosis Slight Anisocytosis Marked Sodium Level 138 mmol/L (136-145) Potassium Level 4.6 mmol/L (3.5-5.1) Chloride Level 103 mmol/L (98-107) Carbon Dioxide Level 28 mmol/L (21-32) Anion Gap 7 (6-14) Blood Urea Nitrogen 30 mg/dL (7-20) H Creatinine 1.0 mg/dL (0.6-1.0) Estimated GFR (Cockcroft-Gault) 66.7 BUN/Creatinine Ratio 30 (6-20) H Glucose Level 86 mg/dL (70-99) Calcium Level 8.7 mg/dL (8.5-10.1) Total Bilirubin 0.3 mg/dL (0.2-1.0) Aspartate Amino Transferase (AST) 58 U/L (15-37) H Alanine Aminotransferase (ALT) 79 U/L (14-59) H Alkaline Phosphatase 314 U/L (46-116) H Total Protein 6.1 g/dL (6.4-8.2) L Albumin 3.1 g/dL (3.4-5.0) L Albumin/Globulin Ratio 1.0 (1.0-1.7) Current Medications: Meds: Laboratory Tests Test 01/28/21 05:50 White Blood Count 7.5 x10^3/uL Red Blood Count 2.62 x10^6/uL Hemoglobin 6.6 g/dL Hematocrit 21.4 % Mean Corpuscular Volume 82 fL Mean Corpuscular Hemoglobin 25 pg Mean Corpuscular Hemoglobin Concent 31 g/dL Red Cell Distribution Width 32.4 % Platelet Count 297 x10^3/uL Neutrophils (%) (Auto) 65 % Lymphocytes (%) (Auto) 17 % Monocytes (%) (Auto) 13 % Eosinophils (%) (Auto) 3 % Basophils (%) (Auto) 2 % Neutrophils # (Auto) 4.9 x10^3uL Lymphocytes # (Auto) 1.3 x10^3/uL Monocytes # (Auto) 1.0 x10^3/uL Eosinophils # (Auto) 0.2 x10^3/uL Basophils # (Auto) 0.2 x10^3/uL Segmented Neutrophils % 32 % Band Neutrophils % 3 % Lymphocytes % 51 % Atypical Lymphocytes % (Manual) 6 % Monocytes % 4 % Eosinophils % 3 % Basophils % 1 % Nucleated Red Blood Cells 20 Platelet Estimate Adequate Polychromasia Slight Poikilocytosis Slight Anisocytosis Marked Sodium Level 138 mmol/L Potassium Level 4.6 mmol/L Chloride Level 103 mmol/L Carbon Dioxide Level 28 mmol/L Anion Gap 7 Blood Urea Nitrogen 30 mg/dL Creatinine 1.0 mg/dL Estimated GFR (Cockcroft-Gault) 66.7 BUN/Creatinine Ratio 30 Glucose Level 86 mg/dL Calcium Level 8.7 mg/dL Total Bilirubin 0.3 mg/dL Aspartate Amino Transf (AST/SGOT) 58 U/L Alanine Aminotransferase (ALT/SGPT) 79 U/L Alkaline Phosphatase 314 U/L Total Protein 6.1 g/dL Albumin 3.1 g/dL Albumin/Globulin Ratio 1.0 Current Medications Medications (Trade) Dose Ordered Sig/Nadeen Route PRN Reason Start Time Stop Time Status Last Admin Dose Admin Acetaminophen (Tylenol) 650 mg PRN Q6HRS PRN PO MILD PAIN / TEMP > 100.3'F 01/20/21 15:45 01/22/21 15:32 DC 01/22/21 08:59 Multi-Ingredient Ointment (Analgesic Shannock) 1 ortega PRN QID PRN TP MUSCLE PAIN 01/20/21 15:45 01/28/21 08:00 DC Al Hydroxide/Mg Hydroxide (Mylanta Plus Xs) 15 ml PRN AFTMEALHC PRN PO DYSPEPSIA 01/20/21 15:45 01/28/21 08:00 DC Magnesium Hydroxide (Milk Of Magnesia) 2,400 mg PRN QHS PRN PO CONSTIPATION 01/20/21 15:45 01/28/21 08:00 DC Nicotine (Nicoderm Cq 14mg Patch) 1 patch DAILY TD 01/20/21 16:00 01/28/21 08:00 DC 01/28/21 07:41 Albuterol Sulfate (Ventolin) 0.108 mg PRN Q6HRS PRN IH wheezing 01/20/21 16:30 01/20/21 17:05 DC Amlodipine Besylate (Norvasc) 10 mg DAILY PO 01/21/21 09:00 01/28/21 08:00 DC 01/27/21 09:22 Apixaban (Eliquis) 5 mg BID PO 01/20/21 21:00 01/22/21 11:48 DC 01/22/21 08:51 Clopidogrel Bisulfate (Plavix) 75 mg DAILY PO 01/21/21 09:00 01/22/21 13:19 DC 01/22/21 08:51 Cyclobenzaprine HCl (Flexeril) 10 mg BID PO 01/20/21 21:00 01/28/21 08:00 DC 01/28/21 07:37 Diclofenac Sodium (Voltaren) 4 ortega QID TP 01/20/21 17:00 01/28/21 08:00 DC 01/27/21 19:53 Ferrous Sulfate (Feosol) 325 mg DAILY PO 01/21/21 09:00 01/23/21 11:28 DC 01/23/21 08:30 Furosemide (Lasix) 40 mg DAILY PO 01/21/21 09:00 01/28/21 08:00 DC 01/28/21 07:37 Hydrocortisone (Proctosol-Hc) 1 ortega BID RC 01/20/21 21:00 01/28/21 08:00 DC 01/27/21 19:53 Lisinopril (Prinivil) 10 mg DAILY PO 01/21/21 09:00 01/28/21 08:00 DC 01/27/21 09:00 Montelukast Sodium (Singulair) 10 mg HS PO 01/20/21 21:00 01/28/21 08:00 DC 01/27/21 19:53 Pantoprazole Sodium (Protonix) 40 mg DAILYAC PO 01/21/21 07:30 01/28/21 08:00 DC 01/28/21 07:38 Non-Formulary Medication (Acetaminophen/ Diphenhydramine (Hm Pain Reliever Pm Caplet)) 650 mg PRN Q4HRS PRN PO PAIN 01/20/21 16:30 01/20/21 17:01 DC Atorvastatin Calcium (Lipitor) 40 mg QHS PO 01/20/21 21:00 01/28/21 08:00 DC 01/27/21 19:52 Non-Formulary Medication (Cilostazol ) 100 mg BIDAFTMEAL PO 01/20/21 18:00 01/20/21 17:27 DC Fluticasone Propionate (Flonase) 1 spray DAILY NS 01/21/21 09:00 01/28/21 08:00 DC 01/28/21 07:37 Non-Formulary Medication (Fluticasone/ Salmeterol (Advair 250-50 Diskus)) 1 puff Q12HR IH 01/20/21 21:00 01/20/21 17:16 DC Cetirizine HCl (ZyrTEC) 10 mg DAILY PO 01/21/21 09:00 01/28/21 08:00 DC 01/28/21 07:37 Melatonin (Melatonin) 3 mg PRN QHS PRN PO INSOMNIA 01/20/21 17:00 01/28/21 08:00 DC 01/22/21 20:13 Metoprolol Tartrate (Lopressor) 100 mg BID PO 01/20/21 21:00 01/28/21 08:00 DC 01/27/21 09:22 Non-Formulary Medication (Tiotropium [place] (Spiriva)) 1 cap DAILY IH 01/21/21 09:00 01/20/21 17:17 DC Budesonide (Pulmicort) 0.5 mg RTBID NEB 01/20/21 20:00 01/20/21 19:43 DC Albuterol/ Ipratropium (Duoneb) 3 ml RTQID NEB 01/20/21 20:00 01/20/21 19:42 DC Albuterol/ Ipratropium (Combivent Respimat 20-100 Mcg) 1 puff RTQID INH 01/20/21 20:00 01/28/21 08:00 DC 01/28/21 07:39 Fluticasone Furoate (ARNUITY 100mcg ELLIPTA) 1 puff BID INH 01/20/21 21:00 01/27/21 21:18 DC 01/27/21 09:19 Non-Formulary Medication (Dextromethorphan Polistirex (Delsym)) 5 ml PRN BID PRN PO COUGH 01/20/21 21:15 UNV Risperidone (RisperDAL) 0.25 mg HS PO 01/22/21 21:00 01/23/21 17:36 DC 01/22/21 20:20 Fluvoxamine Maleate (Luvox) 25 mg DAILY PO 01/23/21 09:00 01/28/21 08:00 DC 01/28/21 07:39 Apixaban (Eliquis) 2.5 mg BID PO 01/29/21 09:00 01/28/21 08:00 DC Acetaminophen (Tylenol) 650 mg BID PO 01/22/21 21:00 01/28/21 08:00 DC 01/28/21 07:37 Albuterol Sulfate (Ventolin Hfa Inhaler) 1 puff PRN Q4HRS PRN INH SHORTNESS OF BREATH 01/22/21 19:45 01/28/21 08:00 DC 01/28/21 03:40 Ferrous Sulfate (Feosol) 325 mg BID94 PO 01/23/21 16:00 01/28/21 08:00 DC 01/28/21 07:39 Ascorbic Acid (Vitamin C) 500 mg BID94 PO 01/23/21 16:00 01/28/21 08:00 DC 01/28/21 07:38 Risperidone (RisperDAL) 0.5 mg HS PO 01/23/21 21:00 01/25/21 17:15 DC 01/24/21 20:39 Chlorphenir/ Hydrocodone Polistirex (Tussionex) 5 ml PRN Q12HR PRN PO COUGH 01/25/21 09:30 01/28/21 08:00 DC Risperidone (RisperDAL) 0.75 mg HS PO 01/25/21 21:00 01/28/21 08:00 DC 01/27/21 19:53 Fluticasone Furoate (ARNUITY 100mcg ELLIPTA) 1 puff DAILY INH 01/28/21 09:00 01/28/21 08:00 DC 01/28/21 07:39 Current Medications Medications (Trade) Dose Ordered Sig/Nadeen Route PRN Reason Start Time Stop Time Status Last Admin Dose Admin Fluticasone Furoate (ARNUITY 100mcg ELLIPTA) 1 puff DAILY INH 01/28/21 09:00 01/28/21 08:00 DC 01/28/21 07:39 I have reviewed the current psychotropics carefully including drug interactions. Risk benefit ratio favors no change other than as noted in my dictated progress note. Diagnosis: Problems: (1) Schizoaffective disorder, bipolar type (2) Psychotic disorder (3) Impulse control disorder, unspecified (4) Anxiety disorder, unspecified (5) Bipolar disorder, current episode mixed, severe, with psychotic features JULIANN DORSEY MD Jan 28, 2021 22:09
[2021-01-29] MEDS ORDERED: APIXABAN 2.5 MG TABLET PO SCH (09:00)
--- NOTE | 2021-02-01 07:53 | DS ---
DATE OF DISCHARGE: 01/28/2021 DISCHARGE SUMMARY/PSYCHIATRIC PROGRESS NOTE This is a late entry, date of service 01/28/2021, covers elements not covered in my initial note. REASON FOR ADMISSION: Please refer to the admission history for details. Briefly, the patient is a 70-year-old female, referred to us from [facility] in [place] where she presented from her apartment on account of bizarre behaviors and worsening psychosis. She was urinating in cups in her apartment, was very delusional, believing her ex-live-in boyfriend Srinivas was stalking her and entering her 8th floor apartment through the outside window by reppling down from the 10th floor into her window, blocking the door and doing other bizarre things. She called the police and otherwise was nonfunctional due to worsening psychosis, prompting this referral for inpatient psychiatric stabilization. SIGNIFICANT FINDINGS AND CLINICAL COURSE: Following admission, the patient was seen daily individually by myself from a psychiatric standpoint, medical followup Dr. Reyes/Dr. Gamez. The patient was quite delusional, psychotic with this similar thiem to what prompted this admission. She was noted to be quite obsessive as well as worsening psychotic symptoms. She seemed to be doing a little better on a combination of Luvox 25 mg daily, Risperdal, which was gradually increased to 0.75 mg p.o. at bedtime and melatonin 5 mg at bedtime for insomnia. Her psychotropics were being adjusted, but at this stage, her hemoglobin dropped once again and she was transferred to [address] [place] [address] Medical Surgical floor for transfusion. This is something she had previously at [facility]. We will reassess the patient after she is medically stabilized on the medical surgical floor for determination whether to readmit her or she could follow up outpatient. REVIEW OF SYSTEMS: Prior to discharge some shortness of breath. No CV, GI, , eye system symptoms on review. MENTAL STATUS EXAMINATION: Reasonably oriented. Speech coherent. Abstraction fair computation, somewhat impaired, language function intact. Less psychotic. Mood and affect improved. Labs reviewed. FINAL DIAGNOSES: 1. Delusional disorder. 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 2. Anxiety disorder, unspecified. Rest unchanged from admission. DISCHARGE MEDICATIONS: Please refer to the [facility]. Medical and psychiatric followup on [address] [place] [address] Reyes. Time for discharge day management greater than [address]: Song TID: [id number]
== END 2021-01-28 07:59 | disposition short-term general hospital (02) | DRG 885 ==
LOC: GEROPSY 14:45
PROVIDERS: ADMIT Psychiatry & Neurology Psychiatry; ATTEND Psychiatry & Neurology Psychiatry
DX: F32.3 Major depressive disorder, single episode, severe with psychotic features (principal); N17.0 Acute kidney failure with tubular necrosis; F41.9 Anxiety disorder, unspecified; I10 Essential (primary) hypertension; F63.9 Impulse disorder, unspecified; D50.9 Iron deficiency anemia, unspecified; E78.5 Hyperlipidemia, unspecified; K21.9 Gastro-esophageal reflux disease without esophagitis; M19.90 Unspecified osteoarthritis, unspecified site; I25.5 Ischemic cardiomyopathy; I35.0 Nonrheumatic aortic (valve) stenosis; I48.0 Paroxysmal atrial fibrillation; I73.9 Peripheral vascular disease, unspecified; J44.9 Chronic obstructive pulmonary disease, unspecified; K31.819 Angiodysplasia of stomach and duodenum without bleeding; Z87.11 Personal history of peptic ulcer disease; Z88.2 Allergy status to sulfonamides; Z95.0 Presence of cardiac pacemaker; G47.00 Insomnia, unspecified; Z79.899 Other long term (current) drug therapy
CPT/HCPCS: 36415; 71045; 80053; 80061; 81001; 82306; 82607; 82728; 83036; 83540; 83550; 83735; 84436; 84443; 84480; 85007; 85025; 85379; 86592; 93005; 99407

== ENCOUNTER 2021-01-28 08:00 | Observation (INO) | payer OTHER ==
[~2021-01-28] VITALS: Ht 165.1 cm; Wt 89.3 kg
[~2021-01-28 08:00] MED LIST: ALBU2.5V8 IH; AMLO10TA4 PO; APIX5TAB3 PO; ASCO500C PO; ATOR40TA59 PO; CILO100T PO; CLOP75TA PO; CYCL-331 PO; DEXT30SU19 PO; DICL20GE TP; FERR325T14 PO; FLUT1DIS3 IH; FLUT9.9S NS; FLUV50TA2 PO; FURO40TA4 PO; HYDR30CR61 TP; LISI10TA16 PO; LORA10TA68 PO; MELA5TAB20 PO; METO100T7 PO; MONT10TA80 PO; NICO1PAT25 TP; PANT40TA3 PO; RISP0.5T24 PO; TIOT18CA IH; [UNRECOGNIZED DRUG - CODE] PO
[2021-01-28 08:21] VITALS: BP 125/75
[2021-01-28 10:47] VITALS: BP 106/62
[2021-01-28] MEDS ORDERED: DEXTROMETHORPHAN POLISTIREX PO PRN (11:00)
[2021-01-28] MEDS ORDERED: ALBUTEROL SULFATE 2.5 MG/3 ML NEBU. IH PRN (11:00)
--- NOTE | 2021-01-28 11:36 | HP ---
ADMIT DATE: 01/28/2021 HISTORY OF PRESENT ILLNESS: The patient is a 70-year-old -[place] female patient was transferred from [facility] as her lab work done this morning showed that her hemoglobin and hematocrit had dropped down to 6.6 and 21.4 from admission values of 8.6 and 28.6. Prior to admission to [facility], the patient was at [facility] and at that time, her hemoglobin was only 5.5 and did receive 3 units of packed RBCs prior to transferring her to our facility. She apparently had, had an upper GI endoscopy ___ that time showed that she had 3 duodenal ulcers treated and also was found to have angiodysplasia of the duodenum with evidence of bleeding and iron deficiency anemia. She does have also a prominent harsh ejection systolic murmur that radiates to both carotid arteries, consistent with aortic stenosis. On questioning her, she stated that there was a discussion about transferring her to [facility] for valve replacement. However, when COVID pandemic started, that was not pursued. When I questioned her today, she denied any chest pain, shortness of breath. Denied any nausea, vomiting, diarrhea or constipation. Denied any hematemesis, melena or hematochezia. She did say that her stool was dark. PAST MEDICAL HISTORY: Significant for chronic obstructive pulmonary disease, hypertension, hyperlipidemia, gastroesophageal reflux disease, anemia due to angiodysplasia of her duodenum. She is also on paroxysmal atrial fibrillation. She is also known to have bronchial asthma, ischemic cardiomyopathy, peripheral arterial disease. PAST SURGICAL HISTORY: Significant for permanent pacemaker placement and upper GI endoscopy. ALLERGIES: SHE IS ALLERGIC TO SULFA DRUGS AND ASPIRIN. FAMILY HISTORY: Noncontributory. SOCIAL HISTORY: She lives alone. She has a daughter that lives in [place]. She continues to smoke, drinks alcohol occasionally. She does not use any drugs. She is currently unemployed. MEDICATIONS: She is on the following medication. She is on apixaban 2.5 mg twice a day, fluticasone furoate 1 puff twice a day, risperidone 0.75 mg at bedtime, chlorpheniramine hydrocodone 5 mL every 12 hours, ascorbic acid 500 mg twice a day, ferrous sulfate 325 mg twice a day, fluvoxamine 25 mg daily, acetaminophen 650 mg twice a day, albuterol sulfate 1 puff every 4 hours, cetirizine 10 mg daily, Flonase 1 spray to each nostril twice a day, lisinopril 10 mg once a day, furosemide 40 mg daily, amlodipine 10 mg once a day, Protonix 40 mg daily, Ellipta 1 puff twice a day, metoprolol tartrate 100 mg twice a day, atorvastatin 40 mg at bedtime, montelukast 10 mg at bedtime, hydrocortisone suppositories rectally twice a day, cyclobenzaprine 10 mg twice a day and Combivent Respimat 1 puff 4 times a day. She is on diclofenac sodium 1 gram applied 4 times a day, nicotine 1 patch daily, milk of magnesia 30 mL p.o. daily p.r.n. for constipation, Mylanta 15 mL after meals and as needed. PHYSICAL EXAMINATION: GENERAL: On arrival to the floor, the patient looked well and was clearly in no apparent distress. She was pale. No jaundice, cyanosis or thyromegaly. No jugular distention. No limb edema. VITAL SIGNS: Heart rate was 60, blood pressure is 106/62, temperature 97.4, respiratory rate was 20 and oxygen saturation was 92% on room air. HEENT: Examination of the head, eyes, ears, nose, and throat: Normocephalic, atraumatic. NECK: Supple. HEART: Showed normal first and second heart sounds. No gallop, rub or murmur. CHEST: Clear to auscultation. No crepitation or rhonchi. ABDOMEN: Distended, soft, nontender. No guarding or rigidity. No organomegaly. All hernial orifice intact. Bowel sounds normal. NEUROLOGIC: The patient is awake, alert, responding appropriately. All cranial nerves intact. She moves extremities without difficulty. She ambulates without assistance or assistive devices. LABORATORY DATA: Her lab work as of this morning showed a white cell count 7500, hemoglobin 6.6, hematocrit 21.4, MCV 82, and platelet count 297,000 with a manual differential showed 65% polymorphs, 17% lymphocytes, 13% monocytes. Her chemistry this morning showed a serum sodium 138, potassium 4.6, chloride 103, bicarbonate 28, anion gap of 7, BUN 30, creatinine 1, estimated GFR was 66 mL per minute. Her glucose was 86, hemoglobin A1c was 5.6. Her calcium was 8.7, magnesium was 2.2. Her serum iron, TIBC and iron saturation are all consistent with severe iron deficiency anemia. Her total bilirubin is normal. AST, ALT, alkaline phosphatase are all elevated. Her total protein 6.1, albumin was 3.1 and her serum triglycerides were 52, total cholesterol was 150, LDL was 69, VLDL was 10, HDL was 71 and the ratio was 2. Her TSH, total T4 and free T4 are all normal on admission. ASSESSMENT AND PLAN: In summary, this is a 70-year-old -[place]anese female patient, who was yet again has developed anemia, probably due to upper gastrointestinal bleeding from duodenal angiodysplasia. She is also on apixaban for paroxysmal atrial fibrillation. My plan is to hold apixaban for now and consult the Routing Clerk. We will transfuse her 2 units of packed RBCs. We will observe her over the next 24 hour and decide the further management accordingly. SHAZIA DR: [place] TID: [id number]
[2021-01-28] MEDS: IPRATRPIUM/ALBUTEROL 0.5/2.5MG 3 ML NEBU. NEB SCH ×2 (15:05→20:37)
[2021-01-28 15:44] VITALS: BP 135/66
[2021-01-28] MEDS ORDERED: ACETAMINOPHEN 325 MG TABLET PO PRN (16:15)
--- NOTE | 2021-01-28 16:35 | RAD ---
Single view of the chest. 01/28/2021 3:25 PM Indication: Reason: RECURRENT BOUTS OF COUGH, SHORTNESS OF BREATH / Comparison: Chest radiograph January 25, 2021 Findings: The heart is enlarged, but similar. There is a dual-lead pacemaking device from a left subc lavian approach. There is diffuse interstitial coarsening. A component of interstitial edema may be p resent. Minimal atelectasis versus trace pleural effusion is seen bilaterally. Age-indeterminate mid thoracic compression deformities noted. IMPRESSION: 1.Cardiomegaly and diffuse interstitial thickening. A component of interstitial edema in the setting of CHF is possible. 2. Trace effusions versus minimal basilar atelectasis. 3. Age-indeterminate mid thoracic fractures noted. Electronically signed by: Loy Hanks MD (01/28/2021 4:33 PM) [id number]
--- NOTE | 2021-01-28 17:38 | CONS ---
DATE OF CONSULTATION: 01/28/2021 REASON FOR CONSULTATION: Anemia in the setting of atrial fibrillation. HISTORY OF PRESENT ILLNESS: The patient is a 70-year-old woman with dilution disorder and schizoaffective disorder, who has been admitted to the psychiatric ndiaye and she was brought down to the telemetry floor due to anemia with a hemoglobin of 6.6. She is currently being transfused. She was actually admitted to [facility] in the early part of January and she was transferred here for continued convalescence for her psychiatric issues. At that time, she was noted to have anemia and underwent an EGD and currently she denies any specific cardiovascular issues, but does have symptoms consistent with COPD and cough and productive sputum. Outside hospital records are sparse, but based on review, she does have a longstanding history of atrial fibrillation and nonobstructive coronary artery disease. At this present time, no active bleeding is noted and her blood pressure and vital signs are stable. PAST MEDICAL HISTORY: 1. Nonobstructive coronary artery disease based on cardiac catheterization 2018, full details are not yet available for review. 2. Paroxysmal atrial fibrillation. 3. History of sick sinus syndrome, status post pacemaker, unknown type. 4. Hypertension. 5. Dyslipidemia. 6. COPD. 7. Peripheral arterial disease with a history of carotid occlusive disease. SOCIAL HISTORY: The patient lives by herself. Continues to use tobacco. FAMILY HISTORY: Noncontributory. ALLERGIES: SULFA AND ASPIRIN. CURRENT CARDIOVASCULAR MEDICATIONS: 1. Lisinopril 10 mg daily. 2. Furosemide 40 mg daily. 3. Amlodipine 10 mg daily. 4. Metoprolol 100 mg p.o. b.i.d. 5. Atorvastatin 40 mg daily. 6. Previously, she was on Eliquis. REVIEW OF SYSTEMS: Negative unless otherwise mentioned above in HPI. PHYSICAL EXAMINATION: VITAL SIGNS: Afebrile, 62, 22, 135/66, 90% on room air. GENERAL: She is alert and oriented, in no acute distress. HEAD AND NECK: Unremarkable. CARDIAC: Regular rate and rhythm with a soft systolic murmur consistent with aortic stenosis or outflow tract narrowing. LUNGS: Bilateral wheezing. ABDOMEN: Obese, nontender, nondistended. EXTREMITIES: Diminished right radial and pedal pulses. 2+ left radial pulses. NEUROLOGIC: No focal deficits. MUSCULOSKELETAL: No trauma. DIAGNOSTIC STUDIES: Hemoglobin 6.6, platelets 297, creatinine within normal limits. EKG is unremarkable from the outside hospital and initially here at 01/20/2021. Echocardiogram and cardiac catheterization from the outside hospital are currently pending for review. ASSESSMENT: 1. Anemia, likely secondary to slow gastrointestinal bleeding. 2. History of intermittent atrial fibrillation with current EKG revealing sinus rhythm with likely paced ventricular response. 3. Hypertension. 4. Paroxysmal atrial fibrillation. RECOMMENDATIONS: 1. Agree with withholding her anticoagulation. 2. 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 3. Await outside hospital records and we will determine any further testing depending on when her most recent echocardiogram and cardiac catheterization were performed. Thank you for this consultation. ESTEPHANIA DR: Stacie TID: [id number] LUCIANA
[2021-01-28 19:30] VITALS: BP 114/70
[2021-01-28] MEDS: MONTELUKAST 10 MG TABLET. PO SCH (20:04)
[2021-01-28] MEDS: MELATONIN 3 MG TABLET PO PRN (20:05)
[2021-01-28] MEDS: risperiDONE 0.5 MG TABLET. PO SCH (20:05)
[2021-01-28] MEDS: ASCORBIC ACID 500 MG TABLET PO SCH (20:05)
[2021-01-28] MEDS: CYCLOBENZAPRINE 10 MG TABLET. PO SCH (20:05)
[2021-01-28] MEDS: METOPROLOL TART IMMED RELEASE 50 MG TABLET PO SCH (20:06)
[2021-01-28] MEDS: BUDESONIDE 0.5 MG/2 ML NEBU NEB SCH (20:41)
[2021-01-28] MEDS ORDERED: ATORVASTATIN CALCIUM 20 MG TABLET PO SCH (21:00)
[2021-01-28] MEDS: HYDROCORTISONE 2.5% RECTAL CREAM 30GM TUBE. RC SCH (21:00)
[2021-01-28] MEDS ORDERED: NON FORMULARY ITEM (Fluticasone/Salmeterol (Advair 250-50 Diskus) 1 PUFF) IH SCH (21:00)
[2021-01-28 22:35] VITALS: BP 105/53
[2021-01-29] VITALS (13 sets, daily range): BP systolic 102–136; BP diastolic 40–72
[2021-01-29] MEDS: IPRATRPIUM/ALBUTEROL 0.5/2.5MG 3 ML NEBU. NEB SCH ×4 (05:13→20:48)
--- NOTE | 2021-01-29 08:04 | PDOC ---
CARDIO Progress Notes Date & Time Date of Service DATE: 01/29/21 TIME: 08:03 Time of Evaluation 08:03 Subjective Notes No chest pain, palpitations, dizziness, diaphoresis, or SOA Vitals Vitals Vital Signs Date Time Temp Pulse Resp B/P (MAP) Pulse Ox O2 Delivery O2 Flow Rate FiO2 01/29/21 05:24 97.4 60 20 131/64 (86) 93 Room Air Weight Weight [ ] Input and Output I.O. Intake and Output 01/29/21 07:00 Intake Total 1740 ml Balance 1740 ml Intake Oral 1740 ml # Voids 3 Physical Exams HEENT: Neck Supple W Full Motion Chest: Symmetric Lungs: Clear to Auscultation Heart: RRR, murmurs (2/6 sysyolic murmur) Abdomen: Soft N/T Extremities: No Edema Neurology: alert, follow commands Assessment Assessment 1. Anemia, most probable secondary to GIB with h/o PUD. s/p transfusion 2. PAFIB; heart tones regular. not on tele 3. SSS s/p PPM (brand unknown). Follows with [facility] through [facility] 4. Mild acute on chronic diastolic CHF 5. CAD; [employer] of the RCA and moderate distal LCx disease per cath 01/31. clinically stable. CP free 6. Hypertension 7. Hyperlipidemia 8. ; moderate per RUBY 10/03 9. PAD; s/p YARN TWISTER of the left common femoral artery, SFA, and popliteal artery. Clinically stable. 9. Delusional disorder Recommendations Continue to hold OAC Metoprolol for rate control Consider for outpatient LAAO Oral Lasix; additional PRN Secondary prevention Add statin therapy Allergy to ASA Consider outpatient ischemic evaluation Supportive care [facility] records Nuclear stress testing 12/11/18 Impression 1. normal nuclear pergusion stress tewst 2. low risk stress test 3. LVEF 68% LE aortogram 11/28/18 Impression 1. Severe proximal left common femoral artery stenosis 2. Severe left SFA and proximal popliteal artery disease 3. Orbital atherectomy left common femoral artery, SFA and popliteal artery 4. Lutonix drug-coated balloon angioplasty left common femoral artery 5. Lutonix drug-coated balloon angioplasty of the left SFA and popliteal artery 6. Moderate mid common femoral artery stenosis 7. Moderately severe right SFA and popliteal artery stenosis [facility] 01/22/19 Impression CAD with moderate distal left circumflex artery stenosis and IFR of 0.94 and occluded mid RCA with left to right collaterals. MODE VILLEGAS APRN Jan 29, 2021 08:04
[2021-01-29] MEDS: PANTOPRAZOLE 40 MG TABLET. PO SCH (08:11)
[2021-01-29] MEDS: FUROSEMIDE 40 MG TABLET PO SCH (08:12)
[2021-01-29] MEDS: CYCLOBENZAPRINE 10 MG TABLET. PO SCH ×2 (08:12→20:59)
[2021-01-29] MEDS: FLUTICASONE 50MCG/NASAL SPRAY 16GM BOTTLE. NS SCH (08:12)
[2021-01-29 08:13] LABS: ALBUMIN 3.1 g/dL (3.4-5.0); CALCIUM 8.8 mg/dL (8.5-10.1); GFR 66.7; POTASSIUM 4.8 mmol/L (3.5-5.1); TOTAL BILIRUBIN 0.4 mg/dL (0.2-1.0); TOTAL PROTEIN 6.3 g/dL (6.4-8.2)
[2021-01-29] MEDS: METOPROLOL TART IMMED RELEASE 50 MG TABLET PO SCH ×2 (08:13→21:00)
[2021-01-29] MEDS: amLODIPine BESYLATE 10 MG TABLET PO SCH (08:13)
[2021-01-29] MEDS: LISINOPRIL 10 MG TABLET PO SCH (08:14)
[2021-01-29] MEDS: CETIRIZINE HCL 10 MG TABLET PO SCH (08:14)
[2021-01-29] MEDS: ASCORBIC ACID 500 MG TABLET PO SCH ×2 (08:14→20:59)
[2021-01-29] MEDS: NICOTINE 14MG PATCH. TD SCH (08:14)
[2021-01-29] MEDS: HYDROCORTISONE 2.5% RECTAL CREAM 30GM TUBE. RC SCH ×2 (08:49→21:00)
[2021-01-29] MEDS ORDERED: NON FORMULARY ITEM (Tiotropium Bromide (Spiriva) 1 CAP) IH SCH (09:00)
[2021-01-29] MEDS: FERROUS SULFATE 325 MG TABLET. PO SCH (09:24)
[2021-01-29 10:03] LABS: HEMATOCRIT 22.3 % (36.0-47.0); RED BLOOD COUNT 2.64 x10^6/uL (3.50-5.40); RED CELL DISTRIBUTION WIDTH 33.8 % (11.5-14.5); WHITE BLOOD COUNT 7.2 x10^3/uL (4.0-11.0)
[2021-01-29] MEDS: BUDESONIDE 0.5 MG/2 ML NEBU NEB SCH ×2 (10:50→20:52)
[2021-01-29] MEDS: MONTELUKAST 10 MG TABLET. PO SCH (20:59)
[2021-01-29] MEDS: risperiDONE 0.5 MG TABLET. PO SCH (21:00)
[2021-01-29] MEDS: MELATONIN 3 MG TABLET PO PRN (21:00)
[2021-01-29] MEDS ORDERED: ATORVASTATIN CALCIUM 20 MG TABLET PO SCH (21:00)
[2021-01-29 21:30] LABS: HEMATOCRIT 28.7 % (36.0-47.0)
--- NOTE | 2021-01-30 00:47 | PN ---
DATE: 01/29/2021 SUBJECTIVE: The patient is sitting at the edge of the bed comfortably, in no apparent distress. On questioning her, she denies any chest pain. Denied any dizziness, lightheadedness. Denied any nausea, vomiting, diarrhea or constipation. Denies any hematemesis, melena or hematochezia. Unfortunately, she has antibodies and we just now managed to get matched blood. She did complain of a cough that is mostly dry hacking. PHYSICAL EXAMINATION: GENERAL: When I examined her, she was pale, but no jaundice, cyanosis or thyromegaly. No jugular venous distention. No lower limb edema. VITAL SIGNS: Heart rate was 60, blood pressure is 131/64, temperature was 97.4, respiratory rate was 20 and oxygen saturation was 93% on room air. HEAD, EYES, EARS, NOSE AND THROAT: Normocephalic, atraumatic. NECK: Supple. HEART: Showed normal first and second heart sounds. No gallop, rub or murmur. CHEST: Clear to auscultation. No crepitation or rhonchi. ABDOMEN: Distended, soft, nontender. NEUROLOGIC: She was awake, alert, responding appropriately. All cranial nerves intact. She moves without difficulty. She ambulates without assistance or assistive devices. Her intake and output are incompletely recorded. LABORATORY DATA: White cell count was 7200, hemoglobin 6.8, hematocrit 22, MCV 84 and platelet count 314,000. Her chemistry showed a serum sodium 139, potassium 4.8, chloride 105, bicarbonate 29, anion gap of 5, BUN 29, creatinine 1, estimated GFR was 66 mL per minute. Her glucose was 73, calcium was 8.8. Total bilirubin is normal. AST, ALT, alkaline phosphatase are elevated. Total protein was 6.3, albumin was 3.1. ASSESSMENT: 1. Iron deficiency anemia secondary to gastrointestinal bleed from angiodysplasia in the stomach and duodenum. 2. Chronic obstructive pulmonary disease, hypertension, hyperlipidemia, gastroesophageal reflux disease. She has paroxysmal atrial fibrillation, bronchial asthma, ischemic cardiomyopathy and peripheral arterial disease. PLAN: To go ahead and transfuse 2 units of packed RBCs. She was seen by the Cardiology team and we have held the anticoagulation and [employer] agree to that. SHAZIA DR: [place] TID: [id number]
[2021-01-30] MEDS: IPRATRPIUM/ALBUTEROL 0.5/2.5MG 3 ML NEBU. NEB SCH ×2 (05:03→09:44)
[2021-01-30 06:01] VITALS: BP 107/61
[2021-01-30 06:43] LABS: BASO # 0.1 x10^3/uL (0.0-0.2); BASO % 2 % (0-3); EOS # 0.1 x10^3/uL (0.0-0.7); EOS % 2 % (0-3); HEMATOCRIT 25.7 % (36.0-47.0); HEMOGLOBIN 8.1 g/dL (12.0-15.5); LYMPH # 1.4 x10^3/uL (1.0-4.8); LYMPH % 21 % (24-48); MEAN CORPUSCULAR HEMOGLOBIN 26 pg (25-35); MEAN CORPUSCULAR HGB CONC 32 g/dL (31-37); MEAN CORPUSCULAR VOLUME 83 fL (79-100); MONO # 0.9 x10^3/uL (0.0-1.1); MONO % 14 % (0-9); NEUT # 4.1 x10^3uL (1.8-7.7); NEUT % 62 % (31-73); PLATELET COUNT 311 x10^3/uL (140-400); RED BLOOD COUNT 3.09 x10^6/uL (3.50-5.40); RED CELL DISTRIBUTION WIDTH 28.9 % (11.5-14.5); WHITE BLOOD COUNT 6.6 x10^3/uL (4.0-11.0)
[2021-01-30 06:52] LABS: ALBUMIN 3.1 g/dL (3.4-5.0); CREATININE 0.9 mg/dL (0.6-1.0); GFR 75.3; POTASSIUM 4.6 mmol/L (3.5-5.1); TOTAL BILIRUBIN 0.5 mg/dL (0.2-1.0); TOTAL PROTEIN 6.3 g/dL (6.4-8.2)
[2021-01-30] MEDS: FLUTICASONE 50MCG/NASAL SPRAY 16GM BOTTLE. NS SCH (07:57)
[2021-01-30] MEDS: NICOTINE 14MG PATCH. TD SCH (07:57)
[2021-01-30] MEDS: CYCLOBENZAPRINE 10 MG TABLET. PO SCH (07:58)
[2021-01-30] MEDS: FUROSEMIDE 40 MG TABLET PO SCH (07:58)
[2021-01-30] MEDS: CETIRIZINE HCL 10 MG TABLET PO SCH (07:58)
[2021-01-30] MEDS: FERROUS SULFATE 325 MG TABLET. PO SCH (07:58)
[2021-01-30] MEDS: PANTOPRAZOLE 40 MG TABLET. PO SCH (07:58)
[2021-01-30] MEDS: BUDESONIDE 0.5 MG/2 ML NEBU NEB SCH (08:00)
[2021-01-30] MEDS: ASCORBIC ACID 500 MG TABLET PO SCH (08:02)
[2021-01-30] MEDS: amLODIPine BESYLATE 10 MG TABLET PO SCH (08:02)
[2021-01-30] MEDS: METOPROLOL TART IMMED RELEASE 50 MG TABLET PO SCH (08:03)
[2021-01-30] MEDS: LISINOPRIL 10 MG TABLET PO SCH (08:03)
[2021-01-30] MEDS: HYDROCORTISONE 2.5% RECTAL CREAM 30GM TUBE. RC SCH (09:00)
[2021-01-30 10:48] VITALS: BP 113/71
--- NOTE | 2021-01-31 03:53 | PN ---
SUBJECTIVE: The patient is sitting on the edge of the bed comfortably, in no apparent distress. She is awake, alert. On questioning her, she denied any complaint in particular. Denied any chest pain. Denied any nausea, vomiting, diarrhea or constipation. Denied any hematemesis, melena or hematochezia. She did receive 2 units of packed RBCs yesterday and apparently the plan is for her to be discharged home, although arrangement has not been yet finalized. She is not a candidate for readmission to [facility]. PHYSICAL EXAMINATION: GENERAL: When I examined her, she was pale. No jaundice, cyanosis or thyromegaly. No jugular venous distention. No limb edema. VITAL SIGNS: Her heart rate was 60, blood pressure was 113/71, temperature was 97.7, respiratory rate was 20 and oxygen saturation was 99% on 2 L of oxygen. HEAD, EYES, EARS, NOSE AND THROAT: Normocephalic, atraumatic. NECK: Supple. HEART: Showed normal first and second heart sounds. No gallop, murmur. CHEST: Clear to auscultation. No crepitation or rhonchi. ABDOMEN: Distended, soft, nontender. NEUROLOGIC: She was awake, alert, responding appropriately. Cranial nerves intact. She moves extremities without difficulty. She ambulates without assistance or assistive devices. LABORATORY WORK: This morning showed a white cell count of 6.6, hemoglobin 8, hematocrit 26, MCV 83 and platelet count of 311,000 with normal manual differential. Her chemistry showed a serum sodium 138, potassium 4.6, chloride 101, bicarbonate 28, anion gap of 9, BUN 30, creatinine 0.9. Estimated GFR was 75 mL/min. Her glucose was 76, calcium was 9. Total bilirubin is normal; however, AST, ALT, alkaline phosphatase are elevated. Total protein 6.3, albumin was 3.1. ASSESSMENT: 1. Iron deficiency anemia secondary to gastrointestinal bleeding from duodenal and gastric angiodysplasia, for which she received 2 units of packed RBCs. 2. Chronic obstructive pulmonary disease. 3. Hypertension. 4. Hyperlipidemia. 5. Gastroesophageal reflux disease. 6. Paroxysmal atrial fibrillation, rate controlled, but we discontinued her apixaban. 7. Bronchial asthma. 8. Ischemic cardiomyopathy. 9. Peripheral arterial disease. PLAN: To continue with all her current medications, await the final arrangement for discharge. KINA/JESUS/SHON DR: [place] TID: [id number]
[2021-02-02 13:42] LABS: HEMOGLOBIN 6.8 g/dL (12.0-15.5)
== END 2021-01-30 16:52 | disposition home or self-care (01) ==
LOC: 1 SOUTH 08:00
PROVIDERS: ADMIT Internal Medicine; ATTEND Internal Medicine
DX: D64.9 Anemia, unspecified (principal); I48.0 Paroxysmal atrial fibrillation; I11.0 Hypertensive heart disease with heart failure; I50.33 Acute on chronic diastolic (congestive) heart failure; J44.9 Chronic obstructive pulmonary disease, unspecified; E78.5 Hyperlipidemia, unspecified; D50.0 Iron deficiency anemia secondary to blood loss (chronic); I25.10 Atherosclerotic heart disease of native coronary artery without angina pectoris; I25.5 Ischemic cardiomyopathy; I25.82 Chronic total occlusion of coronary artery; I35.0 Nonrheumatic aortic (valve) stenosis; I49.5 Sick sinus syndrome; I73.9 Peripheral vascular disease, unspecified; K21.9 Gastro-esophageal reflux disease without esophagitis; K26.4 Chronic or unspecified duodenal ulcer with hemorrhage; K31.811 Angiodysplasia of stomach and duodenum with bleeding; F25.9 Schizoaffective disorder, unspecified; F22 Delusional disorders; F17.200 Nicotine dependence, unspecified, uncomplicated; Z95.0 Presence of cardiac pacemaker; Z95.2 Presence of prosthetic heart valve; Z98.62 Peripheral vascular angioplasty status
CPT/HCPCS: 36415; 36430; 71046; 80053; 85014; 85018; 85025; 85027; 86850; 86870; 86900; 86901; 86920; 86922; 94640; 94760; G0378; G0379; P9016